=== PATIENT | female | born 1950 | race Caucasian/White ===

== ENCOUNTER 2019-04-03 00:12 | Observation (INO) | payer MEDICARE, MEDICAID, SELFPAY ==
[2019-04-02 23:46] VITALS: BP 180/60; PULSE 74; RESP 18; TEMP 36.5; O2SAT 96
--- NOTE | 2019-04-02 23:48 | CTR_ITS ---
PROCEDURE INFORMATION: Exam: CT Head Without Contrast Exam date and time: 04/02/2019 11:49 PM Age: 68 years old Clinical indication: Weakness, extremity; Left; Additional info: Symptoms of acute stroke TECHNIQUE: Imaging protocol: Computed tomography of the head without contrast. Total DLP: 863.93 mGy-cm Radiation optimization: All CT scans at this facility use at least one of these dose optimization techniques: automated exposure control; mA and/or kV adjustment per patient size (includes targeted exams where dose is matched to clinical indication); or iterative reconstruction. Other technique: STROKE PROTOCOL was implemented. COMPARISON: CT head wo con* [id number] 03/06/2015 3:52 PM FINDINGS: Brain: Normal. No hemorrhage. Unremarkable white matter. No mass effect. Midline shift: There is no shift of midline structures. Ventricles: Normal. No ventriculomegaly. Bones/joints: Unremarkable. No acute fracture. Sinuses: Visualized sinuses are unremarkable. No fluid levels. Mastoid air cells: Visualized mastoid air cells are well aerated. Soft tissues: Unremarkable. CT/CT head wo con* [id number] IMPRESSION: No acute intracranial abnormality. ASSESSMENT: ASPECTS ([place] Stroke Program Early CT Score) is 10. Radiation Dose CTDIVOL = (mGy): DLP = 863.93 (mGy-cm)
[2019-04-02 23:49] VITALS: BMI 28.8
[2019-04-03] VITALS (23 sets, daily range): BP systolic 100–180; BP diastolic 44–80; PULSE 64–85; RESP 13–20; TEMP 36.6–37; O2SAT 93–98
[2019-04-03 00:02] LABS: Basophils % 0.4 %; Eosinophils # 0.2 10^3/uL (0.0-0.8); Eosinophils % 1.7 %; Hematocrit 34.4 % (37.0-47.0); Hemoglobin 11.4 g/dL (11.5-15.3); Lymphocytes # 2.1 10^3/uL (0.8-4.8); Lymphocytes % 20.2 %; Mean Corpuscular HGB Conc 33.1 g/dL (30.0-36.0); Mean Corpuscular Hemoglobin 29.3 pg (28.0-34.0); Mean Corpuscular Volume 88.4 fL (81-99); Mean Platelet Volume 10.8 fL (7.4-10.4); Monocytes # 0.9 10^3/uL (0.2-0.9); Monocytes % 8.3 %; Neutrophils # 7.1 10^3/uL (1.8-7.7); Neutrophils % 69.1 %; Nucleated Red Blood Cells % 0 %; Platelet Count 236 10^3/cmm (130-400); Red Blood Count 3.89 10^6/uL (4.1-5.3); Red Cell Distribution Width 13.1 % (12.1-15.1); White Blood Count 10.3 10^3/uL (4.0-10.0)
--- NOTE | 2019-04-03 00:03 | ED_ITS ---
Entered by Kerrie Perez, acting as scribe for Shahana Reece MD HPI - Neuro Symptoms/Deficit General: Chief Complaint: Neuro Symptoms/Deficit Stated Complaint: slurred speech Time Seen by Provider: 04/03/19 00:05 Source: patient and EMS Mode of arrival: EMS Limitations: no limitations History of Present Illness: HPI Narrative: 68 yo f came to the er by ems for a poss stroke. Onset is unsure. Pt has been having some blurred vision and dizziness. Pt states that she has a history of stroke in the past. Onset (ago): day(s) (today / unsure) History of same: No Severity: mild Relieving factors: none Exacerbating factors: none Associated symptoms: Reports weakness; Deny chest pain, headache(s) or vomiting Review of Systems Const: Denies: fever or chills Eyes: Denies: photophobia ENMT: Denies: throat pain or mouth pain Card: Denies: chest pain Resp: Denies: shortness of breath GI: Denies: vomiting : Denies: difficulty urinating Musc: Denies: back pain or joint pain Skin/Breast: Denies: rash Neuro: Reports: numbness in extremities and slurred speech; Denies: headache Psych: Denies: depression Endo: Denies: excessive urination Stevie/Lymph: Denies: easy bruising All/Imm: Denies: hives PFSH ED PFSH: Statuses (acute, chronic, etc) shown below reflect problem list status as previously entered and may not be historically accurate Medical History Generalized anxiety disorder (Acute) Tension headache (Acute) Type 2 diabetes mellitus (Acute) Family History Other Heart disease Social History Smoking and tobacco status: never smoked Alcohol intake: never Marital status: / Current gender identity: Female Physical Exam Const: COMMON NORMALS: no apparent distress, oriented x3 and healthy appearing HENMT: COMMON NORMALS: normocephalic and external nose normal HEAD & SCALP: normocephalic NOSE: external nose normal and no nasal discharge (nasal dischage) Eye: COMMON NORMALS: PERRL PUPIL: Yes PERRL Neck/C-Spine: COMMON NORMALS: full ROM and no lymphadenopathy Chest: COMMONS NORMALS: inspection of chest normal Resp: COMMON NORMALS: normal respiratory effort and clear to auscultation bilaterally AUSCULTATION: clear to auscultation bilaterally Cardio: COMMON NORMALS: regular rate and regular rhythm RATE: regular rate RHYTHM: regular rhythm GI: COMMON NORMALS: soft to palpation PALPATION: Yes soft Extremity: COMMON NORMALS: normal to inspection, full ROM and normal capillary refill Neuro: COMMON NORMALS: oriented x3 OTHER: Slight slurred speech along with slight weakness to left side. Psych: COMMON NORMALS: mental status grossly normal and cooperative Skin: COMMON NORMALS: no rashes or lesions noted GENERAL SKIN EXAM: no rashes or lesions noted Course Vital Signs: Vital signs: Vital Signs Temperature 97.7 F 04/02/19 23:46 Pulse Rate 77 04/03/19 03:20 Respiratory Rate 13 04/03/19 03:20 Blood Pressure 114/53 04/03/19 03:51 Pulse Oximetry 94 04/03/19 03:51 MDM - Neuro Symptoms/Deficit MDM Narrative: Medical decision making narrative: Patient presents here with generalized weakness along with slurred speech and some weakness that is been going on for weeks. Patient has no signs of acute stroke and is out of the TPA window. CT head here is normal. Spoke to hospitalist and will admit for observation. Lab Data: Labs: Lab Results 04/02/19 04/02/19 04/02/19 Range/Units 23:05 23:05 23:05 WBC 10.3 H (4.0-10.0) 10^3/ uL RBC 3.89 L (4.1-5.3) 10^6/u L Hgb 11.4 L (11.5-15.3) g/dL Hct 34.4 L (37.0-47.0) % MCV 88.4 (81-99) fL MCH 29.3 (28.0-34.0) pg MCHC 33.1 (30.0-36.0) g/dL RDW 13.1 (12.1-15.1) % Plt Count 236 (130-400) 10^3/c mm MPV 10.8 H (7.4-10.4) fL Neut % (Auto) 69.1 % Lymph % (Auto) 20.2 % [place] % (Auto) 8.3 % Eos % (Auto) 1.7 % Baso % (Auto) 0.4 % Neut # (Auto) 7.1 (1.8-7.7) 10^3/u L Lymph # (Auto) 2.1 (0.8-4.8) 10^3/u L [place] # (Auto) 0.9 (0.2-0.9) 10^3/u L Eos # (Auto) 0.2 (0.0-0.8) 10^3/u L Baso # (Auto) 0.0 (0.0-0.1) 10^3/u L Nucleated RBC % (a uto) 0 % Nucleated RBCs # 0.0 /100WBC PT 13.80 H (10.5-13.3) SECO NDS INR 1.03 (0.8-1.2) APTT 29.0 (23.9-36.7) SECO NDS Sodium 139 (136-145) mmol/L Potassium 3.2 L (3.5-5.1) mmol/L Chloride 99 (98-107) mmol/L Carbon Dioxide 26 (22-29) mmol/L Anion Gap 17.2 (5-19) BUN 19 (8-23) mg/dL Creatinine 1.0 H (0.5-0.9) mg/dL GFR Calculation 54.8 L (90-130) mL/min Glucose 101 (74-106) mg/dL POC Glucose (70-110) mg/dL Calcium 10.1 (8.8-10.2) mg/Dl Total Bilirubin 0.4 (0.15-1.2) mg/dL AST 20 (0-32) U/L ALT 11 (0-33) U/L Alkaline Phosphata se 102 (35-105) IU/L Total Protein 6.8 (6.6-8.7) g/dL Albumin 4.3 (3.5-5.2) g/dL Globulin 2.5 (1.3-4.6) g/dL Urine Color (Yellow) Urine Appearance (CLEAR) Urine pH (5-7) Ur Specific Gravit y (1.005-1.030) Urine Protein (Negative) Urine Glucose (UA) (Normal) Urine Ketones (Negative) Urine Occult Blood (Negative) Urine Nitrate (Negative) Urine Bilirubin (NEGATIVE) Urine Urobilinogen (Negative) mg/dL Ur Leukocyte Allyson ase (Negative) 04/03/19 04/03/19 04/03/19 Range/Units 00:25 00:25 02:16 WBC (4.0-10.0) 10^3/ uL RBC (4.1-5.3) 10^6/u L Hgb (11.5-15.3) g/dL Hct (37.0-47.0) % MCV (81-99) fL MCH (28.0-34.0) pg MCHC (30.0-36.0) g/dL RDW (12.1-15.1) % Plt Count (130-400) 10^3/c mm MPV (7.4-10.4) fL Neut % (Auto) % Lymph % (Auto) % [place] % (Auto) % Eos % (Auto) % Baso % (Auto) % Neut # (Auto) (1.8-7.7) 10^3/u L Lymph # (Auto) (0.8-4.8) 10^3/u L [place] # (Auto) (0.2-0.9) 10^3/u L Eos # (Auto) (0.0-0.8) 10^3/u L Baso # (Auto) (0.0-0.1) 10^3/u L Nucleated RBC % (a uto) % Nucleated RBCs # /100WBC PT (10.5-13.3) SECO NDS INR (0.8-1.2) APTT (23.9-36.7) SECO NDS Sodium (136-145) mmol/L Potassium (3.5-5.1) mmol/L Chloride (98-107) mmol/L Carbon Dioxide (22-29) mmol/L Anion Gap (5-19) BUN (8-23) mg/dL Creatinine (0.5-0.9) mg/dL GFR Calculation (90-130) mL/min Glucose (74-106) mg/dL POC Glucose 78 118 (70-110) mg/dL Calcium (8.8-10.2) mg/Dl Total Bilirubin (0.15-1.2) mg/dL AST (0-32) U/L ALT (0-33) U/L Alkaline Phosphata se (35-105) IU/L Total Protein (6.6-8.7) g/dL Albumin (3.5-5.2) g/dL Globulin (1.3-4.6) g/dL Urine Color Yellow (Yellow) Urine Appearance Clear (CLEAR) Urine pH 7 (5-7) Ur Specific Gravit y 1.010 (1.005-1.030) Urine Protein Neg (Negative) Urine Glucose (UA) Norm (Normal) Urine Ketones Negative (Negative) Urine Occult Blood Neg (Negative) Urine Nitrate Negative (Negative) Urine Bilirubin Neg (NEGATIVE) Urine Urobilinogen Norm (Negative) mg/dL Ur Leukocyte Allyson ase Negative (Negative) Imaging Data^: CT Head: Radiologist's impression: PROCEDURE INFORMATION: Exam: CT Head Without Contrast Exam date and time: 04/02/2019 11:49 PM Age: 68 years old Clinical indication: Weakness, extremity; Left; Additional info: Symptoms of acute stroke TECHNIQUE: Imaging protocol: Computed tomography of the head without contrast. Total DLP: 863.93 mGy-cm Radiation optimization: All CT scans at this facility use at least one of these dose optimization techniques: automated exposure control; mA and/or kV adjustment per patient size (includes targeted exams where dose is matched to clinical indication); or iterative reconstruction. Other technique: STROKE PROTOCOL was implemented. COMPARISON: CT head wo con* [id number] 03/06/2015 3:52 PM FINDINGS: Brain: Normal. No hemorrhage. Unremarkable white matter. No mass effect. Midline shift: There is no shift of midline structures. Ventricles: Normal. No ventriculomegaly. Bones/joints: Unremarkable. No acute fracture. Sinuses: Visualized sinuses are unremarkable. No fluid levels. Mastoid air cells: Visualized mastoid air cells are well aerated. Soft tissues: Unremarkable. CT/CT head wo con* [id number] IMPRESSION: No acute intracranial abnormality. CXR: Attestation: I personally reviewed and interpreted this imaging study as follows: My impression: no acute abnormality EKG Data^: EKG 1: Attestation: I personally reviewed and interpreted this EKG as follows: EKG interpretation date: 04/03/19 EKG interpretation time: 00:18 Interpretation: nsr hr [address] or t wave abnormalities qrs 100 qtc 446 Discharge Plan Discharge Patient Disposition: Admitted As Inpatient Clinical Impression: Weakness Condition: Stable Referrals: Harika Gross MD [Primary Care Provider] - Coding Level of Care Code ED [facility] Manager for Chg Fwd Exam Problem Focused The documentation recorded by the Chris partida Stephanie Lyn, accurately reflects the service I personally performed and the decisions made by me, Shahana Reece MD Apr 03, 2019 00:12
[2019-04-03 00:10] LABS: INR 1.03 (0.8-1.2)
[2019-04-03 00:28] LABS: Glucose Point of Care 78 mg/dL (70-110)
[2019-04-03 00:33] LABS: Alanine Aminotransferase 11 U/L (0-33); Albumin Level 4.3 g/dL (3.5-5.2); Alkaline Phosphatase 102 IU/L (35-105); Anion Gap 17.2 (5-19); Aspartate Amino Transferase 20 U/L (0-32); Blood Urea Nitrogen 19 mg/dL (8-23); Calcium 10.1 mg/Dl (8.8-10.2); Carbon Dioxide 26 mmol/L (22-29); Chloride 99 mmol/L (98-107); Globulin 2.5 g/dL (1.3-4.6); Glomerular Filtration Rate 54.8 mL/min (90-130); Glucose 101 mg/dL (74-106); Potassium 3.2 mmol/L (3.5-5.1); Sodium 139 mmol/L (136-145); Total Bilirubin 0.4 mg/dL (0.15-1.2); Total Protein 6.8 g/dL (6.6-8.7)
--- NOTE | 2019-04-03 00:37 | PC.NURSE ---
BG AT BESIDE 78
[2019-04-03 00:58] LABS: Add Urine Microscopic? NO
[2019-04-03 01:07] LABS: Bilirubin Urine Neg (NEGATIVE); Blood Urine Neg (Negative); Glucose Urine UA Norm (Normal); Ketones Urine Negative (Negative); Leukocyte Esterase Urine Negative (Negative); Nitrate Urine Negative (Negative); Protein Urine Neg (Negative); Urine Appearance Clear (CLEAR); Urine Color Yellow (Yellow); Urobilinogen Urine Norm (Negative); pH Urine 7 (5-7)
--- NOTE | 2019-04-03 01:13 | XR_ITS ---
WS: [id number] CHEST XRAY TECHNIQUE: Portable chest. CLINICAL INFORMATION: weakness COMPARISON: October 24, 2013 FINDINGS: Heart: Normal cardiac silhouette. Lungs: Lungs are clear. No consolidation or pleural effusion. Bones: Chronic appearing fracture deformity left proximal humerus. XR/XR chest 1V portable [id number] IMPRESSION: Normal chest
[2019-04-03] MEDS: dextrose 50% syringe 50 mL 25 ML IVP (01:41)
--- NOTE | 2019-04-03 02:18 | PC.NURSE ---
BG AT BEDSIDE 118
[2019-04-03 02:20] LABS: Glucose Point of Care 118 mg/dL (70-110)
--- NOTE | 2019-04-03 03:21 | PC.NURSE ---
PATIENT SLEEPING WITH LIGHTS ON IN ROOM.
--- NOTE | 2019-04-03 04:40 | PM.HP ---
Providers/Chief Complaint Admitting Physician: Bridget Arnett Primary Care Provider: Harika Gross Chief Complaint: CP History of Present Illness Olga Suresh is a 68 year old female Medications/Allergies Allergies Allergy/AdvReac Type Severity Reaction Status Date / Time simvastatin Allergy leg cramps Verified 04/02/19 13:25 PFSH Acute PFSH: Statuses (acute, chronic, etc) shown below reflect problem list status as previously entered and may not be historically accurate Medical History (Updated 04/03/19 @ 04:47 by Bridget Arnett MD) CAD (coronary artery disease) (Acute) LAD stent 2004 & 2008, last mibi stress test 02/12 was negative for ischemia but showed scarring. Dyslipidemia (Acute) Generalized anxiety disorder (Acute) History of TIA (transient ischemic attack) and stroke (Acute) Hypertension (Acute) Type 2 diabetes mellitus (Acute) Surgical History (Updated 04/03/19 @ 04:39 by Bridget Arnett MD) History of appendectomy (Acute) History of tubal ligation (Acute) Family History Other Heart disease Social History Smoking and tobacco status: never smoked Alcohol intake: never Marital status: / Current gender identity: Female Vitals/I&O/Wt Last Vital Signs Temp 97.7 F 04/02/19 23:46 Pulse 70 04/03/19 04:12 Resp 14 04/03/19 04:12 BP 130/47 04/03/19 04:12 Pulse Ox 96 04/03/19 04:12 Weight last 48 hrs Weight 78.426 kg Attestations Medical Necessity Statement*: Currently anticipate stay less than 2 midnights Coding Level of Care Code Acute Inspector Set Up And Lay Out for [facility]
--- NOTE | 2019-04-03 05:19 | P.HP_ITS ---
Providers/Chief Complaint Admitting Physician: Bridget Arnett Primary Care Provider: Harika Gross Chief Complaint: CP History of Present Illness Olga Suresh is a 68 year old female who presented to the emergency room because her family was concerned she may have had another stroke. History is obtained from the patient. She says that she has not been feeling well for a while and it is just been getting progressively worse. From the best I can tell she was with her family today and was sitting in a chair and was not able to get up. It also sounds like maybe her speech had worsened though she denies that her speech is different from baseline at the moment. I do have a difficult time getting history from her although if I asked her very specific questions she will answer them. She denies weakness on one side more so than the other though has had generalized weakness and fatigue. She does has not felt like she could do much of anything like she used to. She does live alone though family visits her frequently. She tells me that she cooks her own meals and will make up her bed, do some light housekeeping. She has not had any falls nor has she dropped anything. She does have intermittent headaches and occasional discomfort in her chest along with occasional shortness of breath but none of that appears to be acutely worse than baseline. CT of the head done in the emergency room was unremarkable for acute findings. Laboratory studies were also unremarkable. Patient continued to be weak and did not feel that it was safe for her to go home. She has had previous mini strokes and strokes. She is being admitted for further monitoring and evaluation. Review of Systems Const: Reports: body aches, fatigue and malaise; Denies: fever, chills, change in appetite or change in weight Eyes: Denies: change in vision ENMT: Denies: throat pain, oral sores/lesions or nasal discharge Card: Reports: chest pain; Denies: palpitations, irregular heart rhythm, edema or syncope Resp: Reports: shortness of breath and non-productive cough (mild); Denies: productive cough or pain on inspiration GI: Denies: abdominal pain, nausea, vomiting, difficulty swallowing, diarrhea or constipation : Denies: difficulty urinating or urinary frequency Musc: Reports: muscle weakness Skin/Breast: Denies: rash or itching Neuro: Reports: headache, weakness in extremities and slurred speech; Denies: numbness in extremities, changes in sensation, lack of coordination, frequent falls or confusion Psych: Reports: anxiety Stevie/Lymph: Denies: easy bruising or easy bleeding Medications/Allergies Allergies Allergy/AdvReac Type Severity Reaction Status Date / Time simvastatin Allergy leg cramps Verified 04/02/19 13:25 Additional Medication Information Additional Medication Information: Review of external medication list shows that patient is probably on Xanax, Plavix, iron sulfate, fluticasone or Flovent inhaler, Lasix, gabapentin, hydralazine, hydrocodone, sliding scale insulin, Lantus, nitroglycerin, potassium, and triamcinolone. She was given a prescription for trazodone on April 02 but reports that she did not take any of it. PFSH Acute PFSH: Statuses (acute, chronic, etc) shown below reflect problem list status as previously entered and may not be historically accurate Medical History (Updated 04/03/19 @ 06:43 by Bridget Arnett MD) CAD (coronary artery disease) (Acute) LAD stent 2004 & 2008, last mibi stress test 02/12 was negative for ischemia but showed scarring. Dyslipidemia (Acute) Generalized anxiety disorder (Acute) History of TIA (transient ischemic attack) and stroke (Acute) Hypertension (Acute) Type 2 diabetes mellitus (Acute) Surgical History (Updated 04/03/19 @ 04:39 by Bridget Arnett MD) History of appendectomy (Acute) History of tubal ligation (Acute) Family History Other Heart disease Social History Smoking and tobacco status: never smoked Alcohol intake: never Marital status: / Current gender identity: Female Vitals/I&O/Wt Last Vital Signs Temp 97.7 F 04/02/19 23:46 Pulse 70 04/03/19 04:12 Resp 14 04/03/19 04:12 BP 123/64 04/03/19 04:49 Pulse Ox 96 04/03/19 04:49 Weight last 48 hrs Weight 78.426 kg Physical Exam Const: COMMON NORMALS: no apparent distress, average body habitus and oriented x3 HENMT: COMMON NORMALS: normocephalic, head/scalp atraumatic and moist oral mucous membranes MOUTH: tongue abnormal other (Approximately 3 mm polyp on the tip of the) Eye: COMMON NORMALS: PERRL and EOMs intact bilaterally Neck/C-Spine: COMMON NORMALS: full ROM and supple Resp: COMMON NORMALS: normal respiratory effort, no retractions and clear to auscultation bilaterally Cardio: COMMON NORMALS: no JVD, regular rate, regular rhythm, no gallops and no murmurs GI: COMMON NORMALS: normal to inspection, nondistended, normoactive bowel sounds, soft to palpation and non-tender Back/Pelvis: COMMON NORMALS: no CVA tenderness Extremity: COMMON NORMALS: normal to inspection, no calf tenderness and no pedal edema Neuro: COMMON NORMALS: moves all extremities SENSORIUM/ORIENTATION: Yes oriented to person, Yes oriented to place and Yes oriented to time MENINGEAL SIGNS: Yes no meningeal signs SPEECH: abnormal speech Details: slurred (I think it is really due to her teeth and the polyp on the tip of her tongue) SENSORY EXAM: Yes extremities bilateral light-touch: normal MOTOR EXAM: strength 5/5 throughout, no pronator drift and no tremor noted Psych: COMMON NORMALS: mental status grossly normal and thought process normal Skin: COMMON NORMALS: no rashes or lesions noted, no wounds and no jaundice A&P Assessment and plan (1) Weakness: Seem to be patient's primary complaint. Family was worried about possibility of recurrent stroke or TIA. Having not cared for her in the past it is difficult for me to know. She says that she is at her baseline in terms of speech but is weaker than usual. That being said strength is equal in terms of handgrip and distal strength at the feet. While I will initially had some difficulty understanding her I did not have any difficulty after listening to her for a few minutes. Status: Acute Code(s): R53.1 - Weakness (2) Hypertension: Appears adequately controlled presently Status: Acute Qualifiers: Hypertension type: essential hypertension Qualified Code(s): I10 - Essential (primary) hypertension Code(s): I10 - Essential (primary) hypertension (3) History of TIA (transient ischemic attack) and stroke: I cannot get a clear history on exactly when and what this entailed but she is on Plavix because of this. Sounds like at one point she did have some left-sided weakness and speech abnormalities. Status: Acute Code(s): Z86.73 - Personal history of transient ischemic attack (TIA), and cerebral infarction without residual deficits (4) CAD (coronary artery disease): Does have a history of stents. Stress testing in January was negative for ischemia. Anginal equivalent has to be considered but she does not really describe classic anginal symptoms at the moment. Status: Acute Qualifiers: Coronary Disease-Associated Artery/Lesion type: [place] artery [place] vs. transplanted heart: [place] heart Associated angina: angina presence unspecified Qualified Code(s): I25.10 - Atherosclerotic heart disease of [place] coronary artery without angina pectoris Code(s): I25.10 - Atherosclerotic heart disease of [place] coronary artery without angina pectoris (5) Type 2 diabetes mellitus: Chronically on insulin, does not report significant issues with blood sugars. Last A1c in September of last year was around 7. Status: Acute Qualifiers: Diabetes mellitus skilled nursing insulin use: with skilled nursing use Diabetes mellitus complication status: with neurologic complications Diabetes mellitus complication detail: with polyneuropathy Qualified Code(s): E11.42 - Type 2 diabetes mellitus with diabetic polyneuropathy; Z79.4 - group home (current) use of insulin Code(s): E11.9 - Type 2 diabetes mellitus without complications (6) Generalized anxiety disorder: On chronic Xanax therapy Status: Acute Code(s): F41.1 - Generalized anxiety disorder Additional A&P Information Additional A&P Information: Observation admission Serial neuro exams PT/OT and speech evaluation Serial cardiac enzymes Try to decrease amounts of Xanax and hydrocodone Do not start trazodone that was just prescribed in the outpatient setting Once were able to clarify home medications will resume Replace potassium Supportive care otherwise Full code Plans discussed with patient and she was given an opportunity to ask questions Attestations Medical Necessity Statement*: Currently anticipated stay less than 2 midnights in a patient presenting with weakness and other symptoms as noted above. Will monitor her for recurrent symptoms or other change, replacing potassium and try to decrease some of her medications which might contribute to this. Coding Level of Care Code Acute Media Monitor for [facility] Diagnoses Weakness R53.1 Hypertension I10 Hypertension type: essential hypertension History of TIA (transient ischemic attack) and stroke Z86.73 CAD (coronary artery disease) I25.10 Coronary Disease-Associated Artery/Lesion type: [place] artery [place] vs. transplanted heart: [place] heart Associated angina: angina presence unspecified Type 2 diabetes mellitus E11.42; Z79.4 Diabetes mellitus skilled nursing insulin use: with skilled nursing use Diabetes mellitus complication status: with neurologic complications Diabetes mellitus complication detail: with polyneuropathy Generalized anxiety disorder F41.1
--- NOTE | 2019-04-03 07:10 | PC.NURSE ---
report received from KING Pedraza
[2019-04-03 07:29] LABS: Troponin(5th) Baseline 14 ng/mL (0-10)
--- NOTE | 2019-04-03 09:07 | PC.NURSE ---
pt is waiting in ER until med surge bed becomes available. Dysphagia screen ordered. Nurse is keeping pt NPO until screening complete. Pt educated and verbalized understanding
[2019-04-03 09:42] LABS: Troponin 5 2HR 13.69 ng/mL (0-10)
[2019-04-03 09:46] LABS: Troponin 5 2HR Delta -0.31 ABS# (0-10)
--- NOTE | 2019-04-03 10:17 | PC.NURSE ---
OT at bedside to perform dysphagia screening
[2019-04-03 11:58] LABS: Glucose Point of Care 90 mg/dL (70-110)
[2019-04-03] MEDS: clopidogrel 75 mg Tablet PO (13:23)
[2019-04-03] MEDS: hyDRALAzine 25 mg Tablet PO ×2 (13:24→20:55)
[2019-04-03 13:51] LABS: Troponin 5 6HR 15.56 ng/L (0-10)
[2019-04-03 14:35] LABS: Troponin 5 6HR Delta 1.56 ng/L (0-12)
[2019-04-03 16:51] LABS: Glucose Point of Care 101 mg/dL (70-110)
--- NOTE | 2019-04-03 17:10 | PM.PN ---
Subjective Subjective: Interval history: No new complaints today. Patient states her weakness is significantly improved this morning. No focal neuro deficits at this time. She does state that she has been having multiple episodes of headaches and has been diagnosed with migraines in the past however at this present time she denies any headache. Medications: Reviewed: Yes Vitals/I&O/Wt Last Vital Signs Temp 98.6 F 04/03/19 15:00 Pulse 74 04/03/19 15:00 Resp 18 04/03/19 15:00 BP 147/76 04/03/19 15:00 Pulse Ox 97 04/03/19 15:00 04/03/19 04/03/19 04/03/19 06:59 14:59 22:59 Intake Total 60 / 60 Balance 60 / 60 Weight last 48 hrs Weight 78.426 kg Physical Exam Narrative: EXAM NARRATIVE: General awake alert and oriented x3 CVS S1-S2 is normal RS is clear to auscultation Abdomen is soft nondistended nontender Extremities no cyanosis clubbing edema Neuro exam no gross focal deficits. Data Other Data: Attestation for Other Data: I personally reviewed and interpreted the following: Other data: UA is negative. Chest x-ray is normal without any gross infiltrates A&P Assessment and plan (1) Weakness: Patient states her weakness is significantly improved this morning. At this time she denies any focal motor deficits. Her only complaint at this time is intermittent headache which is currently better. She does carry a history of migraines in the past. Status: Acute Code(s): R53.1 - Weakness (2) Hypertension: Appears adequately controlled presently Status: Acute Qualifiers: Hypertension type: essential hypertension Qualified Code(s): I10 - Essential (primary) hypertension Code(s): I10 - Essential (primary) hypertension (3) History of TIA (transient ischemic attack) and stroke: Continue Plavix 75 mg daily Status: Acute Code(s): Z86.73 - Personal history of transient ischemic attack (TIA), and cerebral infarction without residual deficits (4) CAD (coronary artery disease): Does have a history of stents. Stress testing in January was negative for ischemia. Anginal equivalent has to be considered but she does not really describe classic anginal symptoms at the moment. Status: Acute Qualifiers: Coronary Disease-Associated Artery/Lesion type: [place] artery [place] vs. transplanted heart: [place] heart Associated angina: angina presence unspecified Qualified Code(s): I25.10 - Atherosclerotic heart disease of [place] coronary artery without angina pectoris Code(s): I25.10 - Atherosclerotic heart disease of [place] coronary artery without angina pectoris (5) Type 2 diabetes mellitus: Chronically on insulin, does not report significant issues with blood sugars. Last A1c in September of last year was around 7. Status: Acute Qualifiers: Diabetes mellitus mcfp insulin use: with termite control representative use Diabetes mellitus complication status: with neurologic complications Diabetes mellitus complication detail: with polyneuropathy Qualified Code(s): E11.42 - Type 2 diabetes mellitus with diabetic polyneuropathy; Z79.4 - halfway (current) use of insulin Code(s): E11.9 - Type 2 diabetes mellitus without complications (6) Generalized anxiety disorder: On chronic Xanax therapy Status: Acute Code(s): F41.1 - Generalized anxiety disorder Additional A&P Information Additional A&P Information: Continue observation on telemetry. Serial neuro exams PT/OT and speech evaluation Replace potassium. Will recheck in the morning Supportive care otherwise Full code Attestations Medical Necessity Statement*: Admitted for serial neuro exams and continued observation. Coding Level of Care Code Acute Management Trainee Marketing for Chg Fwd Diagnoses Weakness R53.1 Hypertension I10 Hypertension type: essential hypertension History of TIA (transient ischemic attack) and stroke Z86.73 CAD (coronary artery disease) I25.10 Coronary Disease-Associated Artery/Lesion type: [place] artery [place] vs. transplanted heart: [place] heart Associated angina: angina presence unspecified Type 2 diabetes mellitus E11.42; Z79.4 Diabetes mellitus termite control representative insulin use: with mcfp use Diabetes mellitus complication status: with neurologic complications Diabetes mellitus complication detail: with polyneuropathy Generalized anxiety disorder F41.1
[2019-04-03 20:41] LABS: Glucose Point of Care 113 mg/dL (70-110)
[2019-04-03] MEDS: HYDROcodone-acetaminophen 5-325 mg Tablet 1 TAB PO (21:01)
[2019-04-03] MEDS: ALPRAZolam 0.25 mg Tablet PO (21:01)
[2019-04-04] VITALS (7 sets, daily range): BP systolic 129–158; BP diastolic 62–83; PULSE 69–78; RESP 16–20; TEMP 36.5–37.2; O2SAT 96–98
[2019-04-04 05:38] LABS: Basophils % 0.4 %; Eosinophils # 0.2 10^3/uL (0.0-0.8); Eosinophils % 2.1 %; Hematocrit 36.7 % (37.0-47.0); Hemoglobin 11.6 g/dL (11.5-15.3); Lymphocytes # 2.7 10^3/uL (0.8-4.8); Lymphocytes % 24.9 %; Mean Corpuscular HGB Conc 31.6 g/dL (30.0-36.0); Mean Corpuscular Hemoglobin 30.1 pg (28.0-34.0); Mean Corpuscular Volume 95.3 fL (81-99); Mean Platelet Volume 10.7 fL (7.4-10.4); Monocytes % 8.8 %; Neutrophils # 6.8 10^3/uL (1.8-7.7); Neutrophils % 63.4 %; Nucleated Red Blood Cells % 0 %; Platelet Count 232 10^3/cmm (130-400); Red Blood Count 3.85 10^6/uL (4.1-5.3); Red Cell Distribution Width 13.3 % (12.1-15.1); White Blood Count 10.8 10^3/uL (4.0-10.0)
[2019-04-04 06:37] LABS: Alanine Aminotransferase 11 U/L (0-33); Albumin Level 4.9 g/dL (3.5-5.2); Alkaline Phosphatase 88 IU/L (35-105); Anion Gap 15.8 (5-19); Aspartate Amino Transferase 20 U/L (0-32); Blood Urea Nitrogen 19 mg/dL (8-23); Calcium 10.1 mg/Dl (8.8-10.2); Carbon Dioxide 27 mmol/L (22-29); Chloride 103 mmol/L (98-107); Globulin 1.5 g/dL (1.3-4.6); Glomerular Filtration Rate 61.9 mL/min (90-130); Glucose 59 mg/dL (74-106); Potassium 3.8 mmol/L (3.5-5.1); Sodium 142 mmol/L (136-145); Total Bilirubin 0.6 mg/dL (0.15-1.2); Total Protein 6.4 g/dL (6.6-8.7)
[2019-04-04 06:52] LABS: Glucose Point of Care 64 mg/dL (70-110)
[2019-04-04] MEDS: HYDROcodone-acetaminophen 5-325 mg Tablet 1 TAB PO (08:45)
[2019-04-04] MEDS: hyDRALAzine 25 mg Tablet PO (08:45)
[2019-04-04] MEDS: atorvastatin 40 mg Tablet 20 MG PO (08:45)
[2019-04-04] MEDS: clopidogrel 75 mg Tablet PO (08:45)
[2019-04-04 11:58] LABS: Glucose Point of Care 122 mg/dL (70-110)
--- NOTE | 2019-04-04 15:34 | PC.CHAP ---
Pastoral Care Encounter/Spiritual Assessment Type of Contact [] Declined supervisor food checkers and cashiers visit [] Patient/Family/Request visit [] Outpatient visit [] Follow-up visit [] Physician referral [] Code/Alert [x] Routine visit [] Staff referral [] Actively dying [] Patient sleeping [] Family support [] [] Out of room [] Palliative care [] [] Receiving care in room [] Pre-surgical visit [] Trauma [] Long length of stay [] ICU visit [] Other: Relational/Emotional Strength [x] Patient feels connected with others/family/visitors/staff [] Distress [] Loneliness/isolation [] Abandonment Spirituality of Patient [x] Person of Norma [x] Attends Sikhism of their Norma [x] Believes in Prayer [x] Reads Bible or Christian materials [] There are Spiritual issues to be addressed Floor Sweeper Interventions [x] Prayer [x] Active listening [x] Non-anxious presence [x] Spiritual/emotional support [] Crisis/trauma care [x] Spiritual counseling [] Bereavement support [] Provided bereavement packet [] Provided Bible/devotional materials [] Provided toy/stuffed animal, coloring book to patient or family member [x] Completed spiritual assessment [] Provided Communion [] Anointing/Anthony [] Salvation [] Other: Impact on Illness or Injury [] Angry [] Fearful [] Anxious [] Often cries [] Exhaustion [] Unable to work [] Unable to attend buddhism [] Unable to walk/stand [] Unable to read [] Unable to drive [] Unable to eat/drink [] Unable to sleep [] Unable to be with family [] Other: Summary Patient knows the Lord and is in LOve with [place]. Time spent with patient
[2019-04-04 17:02] LABS: Glucose Point of Care 132 mg/dL (70-110)
--- NOTE | 2019-04-26 23:06 | P.DS_ITS ---
Discharge Providers Date of Admission: 04/03/19 04:21 Date of Discharge: Date of Discharge: April 04, 2019 Attending Provider at Admission: Bridget Arnett MD Attending Provider at Discharge: Libra Hunt MD Primary Care Provider: Harika Gross MD Diagnoses at Discharge Discharge Diagnosis (1) Weakness: Status: Acute (2) Hypertension: Status: Acute Qualifiers: Hypertension type: essential hypertension Qualified Code(s): I10 - Essential (primary) hypertension (3) History of TIA (transient ischemic attack) and stroke: Status: Acute (4) CAD (coronary artery disease): Status: Acute Problem details: LAD stent 2004 & 2008, last mibi stress test 02/12 was negative for ischemia but showed scarring. Qualifiers: Coronary Disease-Associated Artery/Lesion type: [place] artery [place] vs. transplanted heart: [place] heart Associated angina: angina presence unspecified Qualified Code(s): I25.10 - Atherosclerotic heart disease of [place] coronary artery without angina pectoris (5) Type 2 diabetes mellitus: Status: Acute Qualifiers: Diabetes mellitus custodial insulin use: with custodial use Diabetes mellitus complication status: with neurologic complications Diabetes mellitus complication detail: with polyneuropathy Qualified Code(s): E11.42 - Type 2 diabetes mellitus with diabetic polyneuropathy; Z79.4 - bed bug exterminator (current) use of insulin (6) Generalized anxiety disorder: Status: Acute Reason for Visit Reason for Visit: Reason For Visit: CP Hospital Course Discharge Summary: Taken from H&P: Olga Suresh is a 68 year old female who presented to the emergency room because her family was concerned she may have had another stroke. History is obtained from the patient. She says that she has not been feeling well for a while and it is just been getting progressively worse. She denied weakness on one side more so than the other though has had generalized weakness and fatigue. She does has not felt like she could do much of anything like she used to. She does live alone though family visits her frequently. She tells me that she cooks her own meals and will make up her bed, do some light housekeeping. She has not had any falls nor has she dropped anything. She does have intermittent headaches and occasional discomfort in her chest along with occasional shortness of breath but none of that appears to be acutely worse than baseline. CT of the head done in the emergency room was unremarkable for acute findings. Laboratory studies were also unremarkable. Patient continued to be weak and did not feel that it was safe for her to go home. She has had previous mini strokes and strokes. She was admitted for further monitoring. CT head was negative. By the next morning she reported her weakness had significantly imrpoved. She also reported a h/o migraines though remained without headaches. There were no acute events on telemetry. She was discharged in stable condition. Physical Exam Narrative: EXAM NARRATIVE: GEN: Awake, alert and oriented, no acute distress CVS: S1S2 N RS: CTA B/L Abd: Soft, nt/nd , bs+ PARISH VISITOR: no focal neuro deficits Discharge Data Data Completed and Pending: Completed Studies During Hospitalization Category Date Time Status CT head wo con* [id number] Stat Cat Scan 04/02/19 23:48 Completed XR chest 1V deann ble [id number] Stat Exams 04/03/19 01:13 Completed Vitals: Last Vital Signs Temp 98.9 F 04/04/19 15:44 Pulse 78 04/04/19 15:44 Resp 18 04/04/19 15:44 BP 158/62 04/04/19 15:44 Pulse Ox 96 04/04/19 15:44 Discharge Plan Discharge Patient Disposition: Home, Self-Care Condition: Stable Prescriptions: Continued alprazolam 0.5 mg tablet 0.5 mg PO TID PRN (Reason: Anxiety) RF: 0 Flovent HFA 220 mcg/actuation HFA aerosol inhaler 2 puff INHALATION QID PRN (Reason: Shortness Of Breath) RF: 0 nitroglycerin [Nitrostat] 0.4 mg tablet, sublingual 0.4 mg SUBLINGUAL Q5M PRN (Reason: Chest Pain) RF: 0 gabapentin 300 mg capsule 300 mg PO BID RF: 0 clopidogrel 75 mg tablet 75 mg PO DAILY RF: 0 Lantus U-100 Insulin 100 unit/mL solution 45 unit SUBCUT DAILY RF: 0 Novolog Flexpen U-100 Insulin 100 unit/mL (3 mL) insulin pen See Rx Instructions SUBCUT TID RF: 0 furosemide [Lasix] 20 mg tablet See Rx Instructions .ROUTE .COMPLEX RF: 0 potassium chloride 20 mEq tablet extended release 40 meq PO DAILY RF: 0 (DME) pen needle, diabetic [1st Tier Unifine Pentips Plus] 29 gauge x 1/2 needle See Rx Instructions .ROUTE .MEDSUPPLY Qty: 30 RF: 0 ferrous sulfate 325 mg (65 mg iron) tablet 325 mg PO BID RF: 0 hydralazine 25 mg tablet 25 mg PO TID RF: 0 triamcinolone acetonide 0.1 % cream 1 applic TOPICAL BID PRN (Reason: UNKNOWN) RF: 0 Crestor 5 mg Tablet 5 mg PO DAILY RF: 0 trazodone 50 mg tablet 50 mg PO DAILY PRN (Reason: insomnia) RF: 0 No Action hydrocodone-acetaminophen 7.5-325 mg tablet 1 tab PO BID PRN (Reason: pain) 30 Days Qty: 60 RF: 0 Discharge Orders: Discharge Order (Routine); Ordered 04/04/19 Ordered By: Libra Hunt Other Ambulatory Orders: MR head wo con* [id number] (Routine) Timeframe: 1 Week Facility: [facility] - Location: [facility] [place] [facility] Ordered By: Libra Hunt MR head wo con* [id number] (Routine) Timeframe: 1 Week Facility: [facility] - Location: [facility] [place] [facility] Ordered By: Libra Hunt Referrals: Chantel Hart MD [Physician] - (Follow up with Dr. Hart on June 17 at 11:30 AM This is the first available appointment. They will call you if something changes. ) Harika Gross MD [Primary Care Provider] - Patient Instructions: Coronary Artery Disease in Women (DC), Weakness (GEN), TIA Discharge Date/Time: 04/04/19 17:47 Discharge Attestations Time Spent in Discharge Care*: less than 30 min Quality Metrics Clinical Quality Measures During this hospital stay, did patient experience: None Coding Level of Care Code Acute Ornamenter for Chg Fwd Diagnoses Weakness R53.1 Hypertension I10 Hypertension type: essential hypertension History of TIA (transient ischemic attack) and stroke Z86.73 CAD (coronary artery disease) I25.10 Coronary Disease-Associated Artery/Lesion type: [place] artery [place] vs. transplanted heart: [place] heart Associated angina: angina presence unspecified Type 2 diabetes mellitus E11.42; Z79.4 Diabetes mellitus custodial insulin use: with longwall shearer operator use Diabetes mellitus complication status: with neurologic complications Diabetes mellitus complication detail: with polyneuropathy Generalized anxiety disorder F41.1
== END 2019-04-04 17:47 | disposition home or self-care (01) ==
LOC: ER 06:10 → MEDSURG 11:24
PROVIDERS: Admitting Provider Hospitalist; Emergency Provider Emergency Medicine; Family Provider Family Medicine; PCP Family Medicine; Visit Provider Student in an Organized Health Care Education/Training Program
DX: R53.1 Weakness (principal); I10 Essential (primary) hypertension; Z86.73 Personal history of transient ischemic attack (TIA), and cerebral infarction without residual deficits; I25.10 Atherosclerotic heart disease of native coronary artery without angina pectoris; E11.42 Type 2 diabetes mellitus with diabetic polyneuropathy; Z79.4 Long term (current) use of insulin; F41.1 Generalized anxiety disorder; Z82.49 Family history of ischemic heart disease and other diseases of the circulatory system
CPT/HCPCS: 12345; 36415; 36416; 70450; 71045; 80053; 81003; 82962; 84484; 85025; 85610; 85730; 92523; 92526; 92610; 96105; 96374; 96375; 97110; 97161; 97165; 97530; 99283; 99285; A9270; G0378

== ENCOUNTER → 2019-05-28 11:31 | Outpatient (BNVA) | payer MEDICARE, MEDICAID, SELFPAY | PROVIDERS: Family Provider Family Medicine; PCP Family Medicine; Visit Provider Family Medicine | DX: G89.4 Chronic pain syndrome (principal); E11.42 Type 2 diabetes mellitus with diabetic polyneuropathy; Z79.4 Long term (current) use of insulin; F41.1 Generalized anxiety disorder; Z86.73 Personal history of transient ischemic attack (TIA), and cerebral infarction without residual deficits; F06.8 Other specified mental disorders due to known physiological condition | CPT/HCPCS: 36416; 82962 ==

== ENCOUNTER → 2019-11-18 12:15 | Outpatient (BNVA) | payer MEDICARE, MEDICAID, SELFPAY | PROVIDERS: Family Provider Family Medicine; PCP Family Medicine; Visit Provider Nurse Practitioner Family | DX: E78.5 Hyperlipidemia, unspecified (principal); I10 Essential (primary) hypertension; E11.42 Type 2 diabetes mellitus with diabetic polyneuropathy; Z79.4 Long term (current) use of insulin | CPT/HCPCS: 80053; 80061; 81003; 83036; 84443; 85025 ==

== ENCOUNTER 2020-06-16 06:00 | Outpatient (RCR) | payer MEDICARE, MEDICAID, SELFPAY | END 2020-06-24 23:59 | disposition home or self-care (01) | LOC: WPT 06:00 | PROVIDERS: Family Provider Family Medicine; PCP Family Medicine; Referring Provider Family Medicine; Visit Provider Family Medicine | DX: Z86.73 Personal history of transient ischemic attack (TIA), and cerebral infarction without residual deficits (principal) | CPT/HCPCS: 97163 ==

== ENCOUNTER 2020-06-18 08:57 | Outpatient (CLI) | payer MEDICARE, MEDICAID, SELFPAY ==
--- NOTE | 2020-06-18 09:10 | CT_ITS ---
WS: [id number] CT HEAD TECHNIQUE: Noncontrast CT of the head obtained from the skullbase to the vertex. CLINICAL INFORMATION: Z86.73 - Personal history of transient ischemic attack (TIA), and cerebral infa rction without residual deficits COMPARISON: None. DLP: 859.[address] scans at [facility] use at least one of these dose optimization techniques: automat ed exposure control; mA and/or kV adjustment per patient size (includes targeted exams where dose is matched to clinical indication); or iterative reconstruction. FINDINGS: No evidence of intracranial hemorrhage or mass effect. Ventricular system and basal cisterns are mendoza nt. Mild small vessel changes with mild parenchymal volume loss. No extra-axial fluid collections. No evidence of mass or mass effect. Normal mejia-white differentiation. Paranasal sinuses and mastoid air cells are well aerated. .Normal visualized soft tissues. CT/CT head wo con* [id number] IMPRESSION: 1. No evidence of intracranial hemorrhage or mass effect. 2. Mild small vessel changes. Mild parenchymal volume loss. 3. No acute intracranial findings.
== END 2020-06-18 08:58 | disposition home or self-care (01) ==
PROVIDERS: PCP Family Medicine; Visit Provider Family Medicine
DX: Z86.73 Personal history of transient ischemic attack (TIA), and cerebral infarction without residual deficits (principal)
CPT/HCPCS: 70450

== ENCOUNTER 2020-06-25 06:00 | Outpatient (RCR) | payer MEDICARE, MEDICAID, SELFPAY | END 2020-07-24 23:59 | disposition home or self-care (01) | LOC: WPT 06:00 | PROVIDERS: Family Provider Family Medicine; PCP Family Medicine; Referring Provider Family Medicine; Visit Provider Family Medicine | DX: Z86.73 Personal history of transient ischemic attack (TIA), and cerebral infarction without residual deficits (principal) | CPT/HCPCS: 97110 ==

== ENCOUNTER 2020-07-27 09:56 | Outpatient (CLI) | payer MEDICARE, MEDICAID, SELFPAY ==
--- NOTE | 2020-07-27 10:02 | USCV_ITS ---
Olga Suresh Age: 70 Gender: F : 1950 Exam Date: 07/27/2020 10:53 Ordering Phys: Buck Herbert MD Technologist: Ramila Baugh [place] [facility] [place]: CVA BP: / HR: 66 Rhythm: Sinus Technical Quality: Adequate MEASUREMENTS (Male / Female) Normal Values 2D ECHO LV Diastolic Diameter PLAX 4.2 cm 4.2 - 5.9 / 3.9 - 5.3 cm LV Systolic Diameter PLAX 3.6 cm LV Chamber Size 2.6 cm IVS Diastolic Thickness 1.1 cm 0.6 - 1.0 / 0.6 - 0.9 cm IVS Systolic Thickness 1.1 cm LVPW Diastolic Thickness 1.0 cm 0.6 - 1.0 / 0.6 - 0.9 cm LVPW Systolic Thickness 1.1 cm RV Chamber Size 1.6 cm LVOT Diameter 1.8 cm LV Ejection Fraction 2D Teich 27.9 % LV Ejection Fraction MOD 2C 68.6 % LV Ejection Fraction 2C AL 67.8 % LA Diameter 2.4 cm LA Width 2.8 cm LA Height 3.6 cm RA Width 3.6 cm RA Height 3.3 cm Aorta at Sinotubular Diameter 2.8 cm M-MODE LV Diastolic Diameter MM 4.8 cm 4.2 - 5.9 / 3.9 - 5.3 cm LV Systolic Diameter MM 2.8 cm LV Ejection Fraction MM Teich 72.9 % IVS Diastolic Thickness MM 1.0 cm 0.6 - 1.0 / 0.6 - 0.9 cm IVS Systolic Thickness MM 1.2 cm LVPW Diastolic Thickness MM 0.8 cm 0.6 - 1.0 / 0.6 - 0.9 cm LVPW Systolic Thickness MM 1.4 cm RV Diastolic Diameter MM 1.2 cm Aortic Annulus Diameter 3.0 cm LA Ao Ratio MM 0.9 MV E Point Septal Separation 0.3 cm DOPPLER AV Peak Velocity 174.0 cm/s LVOT Peak Velocity 117.0 cm/s AV Area Cont Eq vti 1.6 cm squared AV Area Cont Eq pk 1.7 cm squared MV Area PHT 5.0 cm squared Mitral E to A Ratio 0.9 MV E' Velocity 59.5 cm/s Mitral E to MV E' Ratio 14.0 Mitral E to LV E' Lateral Ratio 15.4 Mitral E to LV E' Septal Ratio 12.9 TR Peak Velocity 233.7 cm/s TR Peak Gradient 21.8 mmHg TR Mean Velocity 166.0 cm/s TR Mean Gradient 12.6 mmHg TR Velocity Time Integral 61.8 cm TV Peak E Velocity 52.0 cm/s Right Atrial Pressure 3.0 mmHg Pulmonary Artery Systolic Pressu 24.8 mmHg PV Peak Velocity 66.0 cm/s RV Acceleration Time 0.2 s RV Ejection Time 0.3 s RV AcT/ET 0.5 FINDINGS Left Ventricle Normal left ventricular size and systolic function, EF 64 %. No regional wall motion abnormalities. Right Ventricle The right ventricle is normal in size and function. Right Atrium The right atrium is normal in size. Left Atrium The left atrium is normal in size. Mitral Valve Thickened mitral valve. Trace mitral valve regurgitation. Aortic Valve Thickened aortic valve. Trace aortic valve regurgitation. Tricuspid Valve Trace tricuspid valve regurgitation. Pulmonic Valve Structurally normal pulmonic valve without significant stenosis. There is no pulmonic regurgitation. Pericardium Normal pericardium without effusion. Aorta Normal ascending aorta dimension. CONCLUSIONS Normal left ventricular size and systolic function, EF 64 %. The left atrium is normal in size. No regional wall motion abnormalities. Thickened aortic valve. Trace aortic valve regurgitation. Thickened mitral valve. Trace mitral valve regurgitation. Trace tricuspid valve regurgitation. There is no pericardial effusion. There are no intracardiac masses. Estimated pulmonary artery peak systolic pressure 25 mmHg Compared to the study from 10/21/2015, there may not be a significant change Dr Jeremy Darnell MD FAC (Electronically Signed) Final Date: 28 Jul 2020 19:53 S
--- NOTE | 2020-07-27 11:00 | USCV_ITS ---
Olga Suresh Age: 70 Gender: F : 1950 Exam Date: 07/27/2020 10:32 Ordering Phys: Jeremy Darnell MD ([email or web address]) Technologist: Ramila Baugh [place] [facility] [place]ication: CVA Risk Factors: Unknown Previous Vascular Surgery: None Right Brachial BP: / Left Brachial BP: / Right Left Velocity (cm/s) Spectral Plaque Velocity (cm/s) Spectral Plaque Syst/Diast Broadening Syst/Diast Broadening 97.60/ 14.30 Prox CCA 75.90 / 15.40 75.20/ 18.80 Mid CCA 79.20 / 18.20 46.10/ 11.50 Hetro Distal CCA 83.50 / 17.10 Hetro 117.30/29.80 Hetro Prox ICA 94.40 / 21.70 Hetro 119.20/27.90 Hetro Mid ICA 114.90/ 19.10 Hetro 102.80/28.80 Distal ICA 109.80/ 28.10 75.00 Hetro ECA 79.20 Hetro 1.58 ICA/CCA 1.45 Antegrade Vertebral Antegrade 55.70/ 15.40 cm/s 46.80/ 10.60 cm/s Tri Subclavian Toombs 111.5 136.6 0 0 FINDINGS Intimal thickening and minimal plaques in the common carotid arteries bilaterally Moderate heterogeneous plaques at the bifurcation and internal carotid arteries bilaterally Antegrade flow in the vertebral arteries bilaterally Normal Doppler velocities in the external carotid and subclavian arteries bilaterally CONCLUSIONS Moderate heterogeneous plaques at the bifurcation and internal carotid arteries bilaterally with velocity elevation, consistent with less than 50% stenosis. Intimal thickening and minimal plaques in the common carotid arteries bilaterally. No significant stenosis in the subclavian or vertebral arteries bilaterally, based on the above findings Dr Jeremy Darnell MD [facility] (Electronically Signed) Final Date: 29 Jul 2020 07:44 S
== END 2020-07-27 09:57 | disposition home or self-care (01) ==
LOC: US 10:00
PROVIDERS: PCP Family Medicine; Visit Provider Internal Medicine Cardiovascular Disease
DX: I77.9 Disorder of arteries and arterioles, unspecified (principal); Z86.73 Personal history of transient ischemic attack (TIA), and cerebral infarction without residual deficits; I65.29 Occlusion and stenosis of unspecified carotid artery; I08.3 Combined rheumatic disorders of mitral, aortic and tricuspid valves
CPT/HCPCS: 93306; 93880

== ENCOUNTER 2020-09-04 09:46 | Outpatient (CLI) | payer MEDICARE, MEDICAID, SELFPAY ==
[2020-09-04 10:00] VITALS: BMI 26.5
--- NOTE | 2020-09-04 11:03 | NMCV_ITS ---
NM anabel perf SPECT r/s* [id number] Olga Suresh Age: 70 Gender: F : 1950 Exam Date: 09/04/2020 11:03 Ordering Phys: Buck Herbert MD Technologist: DORINA Dias Exam Location: [facility] Indications: CHEST PAIN STRESS TEST Please [facility] IMAGE PROTOCOL Rest/Stress 1 Lexiscan Day Radiopharmaceutical Dose (mCi) Administration Site Administered by Rest: Tc-99m 10.5 IV DORINA Dias Sestamibi Stress:Tc-99m 32.8 IV DORINA Coon Sestamibi Rest: 04-Sep-2020 60 Discovery 630 Stress: 04-Sep-2020 30 Discovery 630 0.4mg Lexiscan. Supine position only as patient was unable to lay prone. SPECT RESULTS Technical Quality: Excellent Raw Data Analysis: Normal Image Corrections: No attenuation or motion correction applied Summed Stress Score: 0 Summed Rest Score: 7 Summed Difference Score: 0 PERFUSION FINDINGS Small areas of slightly decreased tracer uptake in the apical segments FUNCTIONAL RESULTS (calculated via Gated SPECT) Stress Image LV EF (%): 82 Stress EDV (mL):84 TID: 1.43 Stress ESV (mL):15 FUNCTIONAL FINDINGS: Segmental wall motion analysis revealing no gross wall motion normalities. IMPRESSIONS 1. Myocardial perfusion imaging revealing small areas of persistent decreased tracer uptake in the apical segments, suggesting myocardial scarring versus attenuation artifacts. 2. Normal LV ejection fraction of 82%. 3. LV wall motion analysis revealing no gross wall motion normalities. 4. Normal LV volume. 5. Elevated transient ischemic dilatation ratio Elevated transient ischemic dilatation ratio, may suggest endocardial ischemia. However the positive predictive value of this finding is limited. Clinical correlation is recommended. Dr Jeremy Darnell MD FACC (Electronically Signed) Final Date: 04 September 2020 16:03 S
--- NOTE | 2020-09-04 11:03 | ECG_ITS ---
[facility] Test Date: 2020-09-04 Pat Name: Olga Suresh Department: Room: Gender: Female Director [facility]: : 1950 Requested By: Buck Herbert Order Number: [id number] Macey MD: Juaquin Rahman M.D. Interpretive Statements NAME OF STUDY: LEXISCAN SESTAMIBI STRESS TEST INDICATION: [Chest Pain, ] Procedure: At the baseline, the blood pressure was 100/42 mmHg with a heart rate of 68 bpm. The electrocardiogram showed normal sinus rhythm, normal axis with normal ST and T's. The Lexiscan was infused over a period of 20 seconds. A total of 0.4 mg of Lexiscan was infused. The stress phase was continued for a total of 5 minutes. Heart rate was at the end of stress phase was 74 bpm and a blood pressure of 108/45 mmHg. The EKG at the peak infusion revealed since normal sinus rhythm with no significant ST-T wave changes. Sestamibi was injected 20 seconds after the Lexiscan infusion. Blood pressure at the end of recovery phase was 111/46 mmHg with a heart rate of 72 bpm. Conclusion: 1. Normal EKG response to Lexiscan infusion 2. No Lexiscan induced chest pain or cardiac arrhythmia. 3. Normal blood pressure and heart rate response. 4. Sestamibi/sestamibi perfusion scan pending; see separate report. Electronically Signed On 10-20-2020 15:08:04 CDT by Juaquin Rahman M.D. [id number]
[2020-09-04] MEDS: regadenoson 0.4 Mg/5 ml Syringe IVP (11:59)
[2020-09-04 12:06] VITALS: BP 111/46; PULSE 75
== END 2020-09-04 09:47 | disposition home or self-care (01) ==
PROVIDERS: PCP Family Medicine; Visit Provider Family Medicine
DX: R07.9 Chest pain, unspecified (principal); R94.39 Abnormal result of other cardiovascular function study
CPT/HCPCS: 78452; 84315; 93017; A9500; J2785

== ENCOUNTER 2020-09-14 08:00 | Day surgery (SDC) | payer MEDICARE, MEDICAID, SELFPAY ==
[2020-09-14 10:54] VITALS: BMI 28.0
--- NOTE | 2020-09-14 10:59 | ECG_ITS ---
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 Measurements Intervals [place] Rate: 68 P: 63 [place]: 130 QRS: 58 QRSD: 98 T: 71 QT: 401 QTc: 429 Interpretive Statements SINUS RHYTHM Compared to ECG 09/29/2015 00:57:45 Intraventricular conduction delay no longer present Electronically Signed On 09-14-2020 18:54:49 CDT by Jeremy Darenll M.D. [id number]
[2020-09-14 11:30] LABS: Add Urine Microscopic? NO; Charge for UA Resulting for Rev
[2020-09-14 11:36] LABS: Bilirubin Urine Neg (Negative); Blood Urine Neg (Negative); Glucose Urine UA Norm (Normal); Ketones Urine 1+ (Negative); Nitrate Urine Negative (Negative); Protein Urine Neg (Negative); Urine Appearance Cloudy (CLEAR); pH Urine 6.5 (5-7)
[2020-09-14 11:37] LABS: Leukocyte Esterase Urine 2+ (Negative); Urobilinogen Urine 4 mg/dL (Negative)
[2020-09-14 11:38] LABS: Urine Color Yellow (Yellow)
--- NOTE | 2020-09-14 11:41 | P.ANESASSM_ITS ---
Pre-Anesthetic Assessment Pre-Anesthetic Assessment: Height/Weight: Height 1.6 m Weight 71.668 kg Preop Diagnosis: Uterine prolapse, stress incontinence Proposed Procedure: Operation Date: 09/16/20 10:30 Proposed Procedures p Total Vaginal Hysterectomy [id number] 23259 N81.10 N81.4(Not Applicable) - Sagar Adler MD s Anterior Repair Anterior Colporrhaphy(Not Applicable) - MD poornima Hall Sling(Not Applicable) - Sagar Adler MD s Sacrospinous Ligament Suspension(Not Applicable) - Sagar Adler MD Familial anesthetic complications: None Social: Social History: No alcohol and No tobacco Exam: Pre-Anes Outpt Exam: alert, oriented x 3, clear to auscultation bilaterally and regular rate & rhythm Airway: Dentition: Chipped, Loose and Other (poor dentition, discolored) CV/HEM: CV/HEM: CAD and CHF Comments: Per Dr. Adler's documentation in office She has not been cleared by Dr. Herbert but she has been cleared by david graham. She is scheduled for a brain MRI later this month IMPRESSIONS 1. Myocardial perfusion imaging revealing small areas of persistent decreased tracer uptake in the apical segments, suggesting myocardial scarring versus attenuation artifacts. 2. Normal LV ejection fraction of 82%. 3. LV wall motion analysis revealing no gross wall motion normalities. 4. Normal LV volume. 5. Elevated transient ischemic dilatation ratio Elevated transient ischemic dilatation ratio, may suggest endocardial ischemia. However the positive predictive value of this finding is limited. Clinical correlation is recommended. CONCLUSIONS Normal left ventricular size and systolic function, EF 64 %. The left atrium is normal in size. No regional wall motion abnormalities. Thickened aortic valve. Trace aortic valve regurgitation. Thickened mitral valve. Trace mitral valve regurgitation. Trace tricuspid valve regurgitation. There is no pericardial effusion. There are no intracardiac masses. Estimated pulmonary artery peak systolic pressure 25 mmHg Compared to the study from 10/21/2015, there may not be a significant change Metabolic: Metabolic: DM and Hyperlipidemia Neuropsych: Neuropsych: Anxiety and CVA Anesthetic Plan: ASA status: 3 Risk of > 500 ml blood loss (7ml/kg in children): No Other Pertinent Information: Patient extremely poor historian PFSH Anesthesia PFSH: Medical History CAD (coronary artery disease) LAD stent 2004 & 2008, last mibi stress test 02/12 was negative for ischemia but showed scarring. Chronic pain syndrome Cough Dyslipidemia Enrolled in chronic care management Generalized anxiety disorder History of TIA (transient ischemic attack) and stroke Hypertension Type 2 diabetes mellitus (~07/02/19) Surgical History History of appendectomy History of tubal ligation Family History Father CAD (coronary artery disease) Lung disease Sister CAD (coronary artery disease) Cancer Chronic kidney disease (CKD) Diabetes Breast cancer onset unknown Colon cancer age onset unknown Brother CAD (coronary artery disease) Cancer Diabetes Hypertension Hyperlipidemia Colon cancer age onset unknown Mother Stroke Thyroid condition Other Heart disease Denies family history of Ovarian cancer Clotting disorder Dementia Suicide Anesthesia complication Bleeding disorder Uterine cancer Social History (Updated 09/14/20 @ 07:56 by Madelin Kasper RN) Smoking and tobacco status: never smoked Alcohol intake: never Substance/Drug Use: never Marital status: / Current gender identity: Female Data Anesthesia CBC & Chem 7: 09/14/20 11:22 09/14/20 11:22 Other Labs: Laboratory Results - last 48 hr 09/14/20 11:20 Urine Color Yellow Urine Appearance Cloudy Urine pH 6.5 Ur Specific [place] 1.020 Urine Protein Neg Urine Glucose (UA) Norm Urine Ketones 1+ H Urine Blood Neg Urine Nitrate Negative Urine Bilirubin Neg Urine Urobilinogen 4 H Ur Leukocyte Esterase 2+ H Cardiac Studies: Cardiac Event Monitor 07/01/20
[2020-09-14 11:56] LABS: Basophils % 0.6 %; Eosinophils % 0.3 %; Hematocrit 38.8 % (37.0-47.0); Hemoglobin 12.2 g/dL (11.5-15.3); Lymphocytes # 1.1 10^3/uL (0.8-4.8); Mean Corpuscular HGB Conc 31.4 g/dL (30.0-36.0); Mean Corpuscular Hemoglobin 29.3 pg (28.0-34.0); Mean Corpuscular Volume 93.3 fL (81-99); Mean Platelet Volume 11.5 fL (7.4-10.4); Monocytes # 0.5 10^3/uL (0.2-0.9); Monocytes % 13.2 %; Neutrophils # 1.91 10^3/uL (1.8-7.7); Neutrophils % 53.6 %; Nucleated Red Blood Cells % 0 %; Platelet Count 116 10^3/cmm (130-400); Red Blood Count 4.16 10^6/uL (4.1-5.3); Red Cell Distribution Width 13.5 % (12.1-15.1); White Blood Count 3.6 10^3/uL (4.0-10.0)
[2020-09-14 12:09] LABS: INR 1.08 (0.8-1.2)
[2020-09-14 12:33] LABS: Alanine Aminotransferase 19 U/L (0-33); Albumin Level 4.3 g/dL (3.5-5.2); Alkaline Phosphatase 75 IU/L (35-105); Anion Gap 18.3 (5-19); Aspartate Amino Transferase 28 U/L (0-32); Blood Urea Nitrogen 21 mg/dL (8-23); Calcium 8.7 mg/dL (8.5-10.5); Carbon Dioxide 24 mmol/L (22-29); Chloride 102 mmol/L (98-107); Globulin 2.5 g/dL (1.3-4.6); Glucose 88 mg/dL (65-115); Osmolality Calculated 292 mOsm/kg (285-295); Potassium 4.3 mmol/L (3.5-5.1); Sodium 140 mmol/L (136-145); Total Bilirubin 0.4 mg/dL (0.15-1.2); Total Protein 6.8 g/dL (6.6-8.7)
== END 2020-09-14 15:00 | disposition home or self-care (01) ==
LOC: OPS 11-17 10:39
PROVIDERS: PCP Family Medicine; Visit Provider Obstetrics & Gynecology
DX: Z01.818 Encounter for other preprocedural examination (principal); N81.10 Cystocele, unspecified; N39.3 Stress incontinence (female) (male); I25.10 Atherosclerotic heart disease of native coronary artery without angina pectoris; I11.0 Hypertensive heart disease with heart failure; I50.9 Heart failure, unspecified; E78.5 Hyperlipidemia, unspecified; Z86.73 Personal history of transient ischemic attack (TIA), and cerebral infarction without residual deficits; E11.9 Type 2 diabetes mellitus without complications
CPT/HCPCS: 36415; 80053; 81003; 85025; 85610; 86850; 86900; 87077; 87086; 87186; 93005

== ENCOUNTER → 2020-09-14 09:07 | Outpatient (BNVA) | payer MEDICARE, MEDICAID, SELFPAY | PROVIDERS: PCP Family Medicine; Visit Provider Obstetrics & Gynecology | DX: N81.4 Uterovaginal prolapse, unspecified (principal); Z20.822 Contact with and (suspected) exposure to COVID-19 | CPT/HCPCS: 87635 ==

== ENCOUNTER 2020-12-23 15:54 | Outpatient (CLI) | payer MEDICARE, MEDICAID, SELFPAY ==
--- NOTE | 2020-12-23 16:45 | MR_ITS ---
WS: [id number] MRI BRAIN WITHOUT CONTRAST HISTORY: Z01.818 - Encounter for other preprocedural examination, history of strokes. COMPARISON: CT head 06/18/2020 TECHNIQUE: Diffusion imaging, multiplanar T1, T2 and FLAIR imaging obtained. Quality of this examination is significantly limited by motion artifact. No diffusion-weighted abnormalities are evident. Small infarcts may be obscured with this amount of m otion. No large area of hemorrhage. Mild small vessel ischemic disease. No large infarcts identified. Ventricles and extra-axial spaces are mildly prominent on the basis of atrophy. No inferior displacement of cerebellar tonsils. The sella turcica and pituitary gland are unremarkabl e. Dural venous sinuses and [place] demonstrate no abnormality on this unenhanced studies. Paranasal sinuses: Clear. Mastoid air cells: Normal. Calvarium and scalp: Intact. MR/MR head wo con* [id number] IMPRESSION: 1. Quality of this examination is significantly degraded by motion artifact. 2. No large areas infarcts or prior infarcts or hemorrhage. 3. Mild chronic microvascular ischemic disease and mild atrophy.
== END 2020-12-23 15:55 | disposition home or self-care (01) ==
LOC: RADSHAW 16:00
PROVIDERS: PCP Family Medicine; Visit Provider Family Medicine
DX: Z01.818 Encounter for other preprocedural examination (principal); I63.9 Cerebral infarction, unspecified; R53.1 Weakness; I67.82 Cerebral ischemia
CPT/HCPCS: 70551

== ENCOUNTER → 2021-03-12 08:42 | Outpatient (BNVA) | payer MEDICARE, MEDICAID, SELFPAY | PROVIDERS: PCP Family Medicine; Visit Provider Obstetrics & Gynecology | DX: I48.91 Unspecified atrial fibrillation (principal); N81.4 Uterovaginal prolapse, unspecified | CPT/HCPCS: 85610; 85730; 87635 ==

== ENCOUNTER 2021-03-17 11:00 | Observation (INO) | payer MEDICARE, MEDICAID, SELFPAY ==
[2021-03-12 11:16] VITALS: BMI 28.1
--- NOTE | 2021-03-12 11:39 | ECG_ITS ---
[facility] Test Date: 2021-03-12 Pat Name: Olga Suresh Department: Room: Gender: Female [employer]: : [id number] Requested By: Adams Lopez Order Number: [id number] Macey MD: Sarah Goldsmith M.D. Measurements Intervals [place] Rate: 72 P: 50 MN: 138 QRS: 43 QRSD: 109 T: 58 QT: 389 QTc: 427 Interpretive Statements SINUS RHYTHM Compared to ECG 09/14/2020 11:26:26 No significant changes Electronically Signed On 03-13-2021 7:33:31 COMPRESSED GAS TESTER by Sarah Goldsmith M.D. [id number]
--- NOTE | 2021-03-12 12:14 | ANES.PREANE2 ---
Pre-Anesthetic Assessment Pre-Anesthetic Assessment: Height/Weight: Height 1.6 m Weight 72.121 kg Preop Diagnosis: Uterine prolapse, stress incontinence Proposed Procedure: Operation Date: 03/17/21 08:50 Proposed Procedures p Colpocleisis [place] Procedure 14282 N81.4(Not Applicable) - Sagar Adler MD Was Beta Toni taken within 24 hours: N/A Was Clonidine taken within 24 hours: N/A Social: Social History: No alcohol and No tobacco Exam: Pre-Anes Outpt Exam: alert, oriented x 3, clear to auscultation bilaterally and regular rate & rhythm Airway: Submandibular: WNL Cervical ROM: WNL MP: 2 Dentition: Chipped Additional comments: Very poor dentition, multiple missing and cracked CV/HEM: CV/HEM: CAD (Stents) and HTN Metabolic: Metabolic: DM and Hyperlipidemia Musc/skel: Musc/skel: Weakness Comments: chronic pain/opioid Neuropsych: Neuropsych: Anxiety, CVA, Depression and TIA Anesthetic Plan: ASA status: 3 Anesthesia: General Risk of > 500 ml blood loss (7ml/kg in children): No PFSH Anesthesia PFSH: Medical History CAD (coronary artery disease) LAD stent 2004 & 2008, last mibi stress test 02/12 was negative for ischemia but showed scarring. Chronic pain syndrome Cough Dyslipidemia Enrolled in chronic care management Generalized anxiety disorder History of TIA (transient ischemic attack) and stroke Hypertension Type 2 diabetes mellitus (~07/02/19) Surgical History History of appendectomy History of tubal ligation Family History Father CAD (coronary artery disease) Lung disease Sister CAD (coronary artery disease) Cancer Chronic kidney disease (CKD) Diabetes Breast cancer onset unknown Colon cancer age onset unknown Brother CAD (coronary artery disease) Cancer Diabetes Hypertension Hyperlipidemia Colon cancer age onset unknown Mother Stroke Thyroid condition Other Heart disease Denies family history of Ovarian cancer Clotting disorder Dementia Suicide Anesthesia complication Bleeding disorder Uterine cancer Social History (Updated 03/12/21 @ 08:44 by Madelin Kasper RN) Smoking and tobacco status: never smoked Alcohol intake: never Substance/Drug Use: never Marital status: / Current gender identity: Female Data Anesthesia Cardiac Studies: Cardiac Event Monitor 07/01/20
[2021-03-17] VITALS (16 sets, daily range): BP systolic 122–184; BP diastolic 63–97; PULSE 50–86; RESP 12–18; TEMP 36.2–37; O2SAT 99–100; BMI 28.1
--- NOTE | 2021-03-17 08:23 | W.PM.OPSUD ---
Surgery/Procedure H&P Update DATE OF PROCEDURE: March 17, 2021 DATE H&P PERFORMED: 09/14/20 H&P UPDATE INFORMATION: I have reviewed H&P completed within last 30 days, I have examined patient prior to procedure and No changes to prior documentation PREOP DIAGNOSIS: Uterine prolapse, stress incontinence PLANNED PROCEDURE: Operation Date: 03/17/21 08:50 Proposed Procedures p Colpocleisis [place] Procedure 20017 N81.4(Not Applicable) - Sagar Adler MD
--- NOTE | 2021-03-17 08:25 | P.ANESUD_ITS ---
Pre-Anesthetic Update Pre-Anesthetic Assessment: Date of Surgery/Procedure: 03/17/21 Preop Loan gnosis: Uterine prolapse, stress incontinence Proposed Procedure: Operation Date: 03/17/21 08:50 Proposed Procedures p Colpocleisis [place] Procedure 55588 N81.4(Not Applicable) - Sagar Adler MD Any changes to Pre-Anesthetic Assessment?: No Last Intake: Intake Last Liquid Date 03/16/21 Last Liquid Time 21:00 Last Solid Date 03/16/21 Last Solid Time 21:00 Vitals: Temperature 97.1 F L 03/17/21 07:50 Temperature Source Temporal Artery S can 03/17/21 07:50 Pulse Rate 74 03/17/21 07:50 Pulse Rhythm 03/17/21 08:17 Pulse Strength 3+ Normal 03/17/21 08:17 Respiratory Rate 18 03/17/21 07:50 Blood Pressure 146/97 03/17/21 07:50 Blood Pressure Temitope n 113 03/17/21 07:50 Pulse Oximetry 99 03/17/21 07:50 Oxygen Delivery Me thod 03/17/21 08:17 Exam: Pre-Anes Outpt Exam: alert, oriented x 3, clear to auscultation bilaterally and regular rate & rhythm Cardiac Studies: 2 Cardiac Event Monitor 07/01/20
[2021-03-17] MEDS: scopolamine 1.5 Patch 1 PATCH TRANSDERMA (08:34)
[2021-03-17] MEDS: enoxaparin 30 mg/0.3 mL Syringe SUBCUT (08:34)
[2021-03-17] MEDS: sodium chloride 0.9% 1,000 ML 30 ML IV (08:35)
[2021-03-17 08:48] LABS: Glucose Point of Care 52 mg/dL (70-110)
[2021-03-17 08:48] LABS: Glucose Point of Care 47 mg/dL (70-110)
[2021-03-17 08:49] LABS: Basophils % 0.2 %; Eosinophils % 0.4 %; Hematocrit 33.5 % (37.0-47.0); Hemoglobin 11.1 g/dL (11.5-15.3); Lymphocytes # 1.2 10^3/uL (0.8-4.8); Lymphocytes % 14.8 %; Mean Corpuscular HGB Conc 33.1 g/dL (30.0-36.0); Mean Corpuscular Hemoglobin 30.5 pg (28.0-34.0); Mean Platelet Volume 10.3 fL (7.4-10.4); Monocytes # 0.6 10^3/uL (0.2-0.9); Monocytes % 6.9 %; Neutrophils # 6.47 10^3/uL (1.8-7.7); Neutrophils % 77.5 %; Nucleated Red Blood Cells % 0 %; Platelet Count 212 10^3/cmm (130-400); Red Blood Count 3.64 10^6/uL (4.1-5.3); Red Cell Distribution Width 12.5 % (12.1-15.1); White Blood Count 8.4 10^3/uL (4.0-10.0)
[2021-03-17] MEDS: dextrose 50% syringe 50 mL 25 ML IVP (08:50)
[2021-03-17 09:11] LABS: Alanine Aminotransferase 10 U/L (0-33); Albumin Level 4.1 g/dL (3.5-5.2); Alkaline Phosphatase 97 IU/L (35-105); Anion Gap 17.3 (5-19); Aspartate Amino Transferase 15 U/L (0-32); Blood Urea Nitrogen 10 mg/dL (8-23); Calcium 9.3 mg/dL (8.5-10.5); Carbon Dioxide 25 mmol/L (22-29); Chloride 102 mmol/L (98-107); Glucose 46 mg/dL (65-115); Osmolality Calculated 288 mOsm/kg (285-295); Potassium 3.3 mmol/L (3.5-5.1); Sodium 141 mmol/L (136-145); Total Bilirubin 0.2 mg/dL (0.15-1.2); Total Protein 7.1 g/dL (6.6-8.7)
[2021-03-17 09:11] LABS: Add Urine Microscopic? NO; Charge for UA Resulting for Rev
[2021-03-17 09:13] LABS: Glucose Point of Care 102 mg/dL (70-110)
[2021-03-17 09:36] LABS: Bilirubin Urine Neg (Negative); Blood Urine Neg (Negative); Glucose Urine UA Norm (Normal); Ketones Urine Negative (Negative); Leukocyte Esterase Urine Negative (Negative); Nitrate Urine Negative (Negative); Protein Urine Neg (Negative); Sulfosalicylic Acid Urine Negative (Negative); Urine Appearance Clear (CLEAR); Urine Color Colorless (Yellow); Urobilinogen Urine Norm (Negative); pH Urine 8 (5-7)
--- NOTE | 2021-03-17 10:58 | P.OP_ITS ---
Operative Report Date of procedure: March 17, 2021 Pre-op Diagnosis: Uterine prolapse, stress incontinence Post-op diagnosis: same Procedure Done: Colpocleisis [place] procedure Pathology: none sent Surgeon: Sagar Adler MD Anesthesia: General Estimated blood loss (mL): 50 IV fluids (mL): 800 Complications: Bleeding Condition: stable Disposition: PACU Procedure: After informed consent, the patient was taken to the Operating Room where general anesthesia was administered. She was placed in the dorsal lithotomy position and prepped and draped in sterile fashion. A time out procedure was performed. 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 A Charles catheter was placed into the bladder identify the bladder neck. Placing the cervix on traction to daniela the vagina. The vaginal mucosa was injected with either bupivacaine or 2% lidocaine with 1:200,000 epinephrine, just below the vaginal epithelium anteriorly and posteriorly. With marking pen to joyce out the rectangular areas of the vaginal epithelium that are to be removed anteriorly and posteriorly. Extend the anterior rectangle from approximately 2 cm from the tip of the cervix to 4 or 5 cm below the external urethral meatus. A mirror image on the posterior aspect of the cervix and vagina. Extend the rectangle on the posterior vaginal wall from approximately 2 cm below the level of the tip f the cervix to 4 or 5 cm inside the posterior fourchette. A vertical midline incision was made beneath the midurethra, nearly 1.5 cm length. Careful submucosal dissection was performed bilaterally up to the interior portion of the inferior pubic ramus. The insertion of adductor longus tendon on the patient?s pubic ramus was identified as reference land joyce. Palpated the notch along the internal edge of ischiopubic ramus where the adductor longus tendon and the inferior pubic ramus meet. The mesh of the sling was lined anteriorly and posteriorly with the thin Matristem porcine graft before placement fixed to the mesh with PDS suture. The needle of the SIS inserted aiming at the location of this notch. One of the integrated self- fixating tips place onto the needle by sliding it over the end of the needle. The needle/sling assembly was inserted toward the location of identified reference notch making sure that the flat of the handle is perpendicular to the desired path. The needle was tracked along the posterior surface of the ischiopubic ramus until the midline joyce on the mesh is approximately at the midline position under the urethra. The needle was removed and the same was repeated on the contralateral side until the appropriate sling tension under the urethra was achieved ensuring that the mesh lays flat. The needle was removed and vaginal incision was closed in a running interlocking fashion with 2-0 Vicryl. A single-tooth tenaculum was then applied to the cervix. The vaginal epithelium from both the anterior and posterior vaginal head were incised as marked and with sharp dissection dissected off leaving the maximum amount possible of vaginal muscularis on the underlying bladder and the rectum. The cut edges of the anterior and posterior vaginal head were sew together with interrupted delayed absorbable sutures gradually turning the uterus and vaginal apex inward. Then the superior and inferior margins of the rectangles were sutured together. Excellent hemostasis was obtained. Sponge, lap, needle, and instrument counts were correct times three. The patient was taken to the recovery room, awake and in stable condition.
[2021-03-17] MEDS: ondansetron 2 mg/ML SDV 2 mL 4 MG IVP (11:14)
[2021-03-17] MEDS: fentaNYL 50 mcg/mL INJ 2mL IVP (11:17)
[2021-03-17 11:35] LABS: Glucose Point of Care 66 mg/dL (70-110)
[2021-03-17 11:35] LABS: Glucose Point of Care 94 mg/dL (70-110)
[2021-03-17 11:35] LABS: Glucose Point of Care 112 mg/dL (70-110)
[2021-03-17] MEDS: ketorolac 30 mg/mL INJ IVP ×2 (13:17→18:26)
--- NOTE | 2021-03-17 14:48 | ANE.PACU2 ---
Inpatient post-anesthesia follow up: Airway intact: Yes Vital signs: Temperature 97.4 F Pulse Rate 66 Respiratory Rate 12 Blood Pressure 147/70 Pulse Oximetry 100 Oxygen Delivery Me thod Nasal Cannula Oxygen Flow Rate 3 Fraction of Inspir ed Oxygen Hydration adequate: Yes Nausea and vomiting: No Pain level: 2 Mental status: Baseline
[2021-03-17] MEDS: dextrose 5%-lactated ringers 1,000 ML 125 ML IV ×2 (18:03→20:27)
[2021-03-17] MEDS: docusate sodium 100 mg Capsule PO (18:26)
[2021-03-17 18:35] LABS: Glucose Point of Care 99 mg/dL (70-110)
[2021-03-17] MEDS: sodium chloride 0.9% 500 ML IV (20:58)
[2021-03-17] MEDS: gabapentin 300 mg Capsule PO (21:05)
[2021-03-17] MEDS: hyDRALAzine 25 mg Tablet PO (21:06)
[2021-03-17 21:15] LABS: Glucose Point of Care 82 mg/dL (70-110)
[2021-03-17] MEDS: lactated ringers 1,000 ML 999 ML IV (22:52)
[2021-03-18] MEDS: ketorolac 30 mg/mL INJ IVP ×2 (00:50→06:45)
[2021-03-18] MEDS: FUROsemide 10 mg/mL SDV 2mL 20 MG IVP ×2 (00:50→06:47)
[2021-03-18] MEDS: sodium chlor 0.9% + KCl 40 mEq 40 MEQ/1,000 ML BAG 125 MEQ IV (00:56)
[2021-03-18 04:19] VITALS: BP 97/55; PULSE 68; RESP 18; TEMP 36.7; O2SAT 98
[2021-03-18 05:21] LABS: Hematocrit 24.2 % (37.0-47.0); Hemoglobin 7.8 g/dL (11.5-15.3); Mean Corpuscular HGB Conc 32.2 g/dL (30.0-36.0); Mean Corpuscular Hemoglobin 30.6 pg (28.0-34.0); Mean Corpuscular Volume 94.9 fl (81-99); Mean Platelet Volume 10.4 fL (7.4-10.4); Platelet Count 171 10^3/cmm (130-400); Red Blood Count 2.55 10^6/uL (4.1-5.3); Red Cell Distribution Width 12.7 % (12.1-15.1); White Blood Count 10.8 10^3/uL (4.0-10.0)
[2021-03-18 05:52] LABS: Alanine Aminotransferase 6 U/L (0-33); Albumin Level 3.1 g/dL (3.5-5.2); Alkaline Phosphatase 64 IU/L (35-105); Anion Gap 13.3 (5-19); Aspartate Amino Transferase 12 U/L (0-32); Blood Urea Nitrogen 9 mg/dL (8-23); Carbon Dioxide 23 mmol/L (22-29); Chloride 110 mmol/L (98-107); Osmolality Calculated 289 mOsm/kg (285-295); Potassium 4.3 mmol/L (3.5-5.1); Sodium 142 mmol/L (136-145); Total Bilirubin 0.3 mg/dL (0.15-1.2); Total Protein 5.1 g/dL (6.6-8.7)
[2021-03-18 05:57] LABS: Glucose 39 mg/dL (65-115)
[2021-03-18] MEDS: dextrose 5%-lactated ringers 1,000 ML 125 ML IV (06:11)
[2021-03-18 07:00] LABS: Glucose Point of Care 127 mg/dL (70-110)
[2021-03-18] MEDS: potassium chloride ER 20 mEq Tablet PO (10:01)
[2021-03-18 10:02] VITALS: BP 132/74
[2021-03-18] MEDS: docusate sodium 100 mg Capsule PO (10:02)
[2021-03-18] MEDS: hyDRALAzine 25 mg Tablet PO (10:02)
[2021-03-18] MEDS: losartan 50 mg Tablet 25 MG PO (10:02)
[2021-03-18] MEDS: clopidogrel 75 mg Tablet PO (10:04)
[2021-03-18] MEDS: FUROsemide 40 mg Tablet PO (10:04)
[2021-03-18] MEDS: atorvastatin 40 mg Tablet 20 MG PO (10:05)
[2021-03-18] MEDS: gabapentin 300 mg Capsule PO (10:05)
[2021-03-18] MEDS: aspirin 81 mg EC Tablet PO (10:06)
[2021-03-18 10:20] VITALS: BP 149/64; PULSE 80; RESP 19; TEMP 36.8; O2SAT 100
[2021-03-18] MEDS: insulin glargine 100 units/1 mL 45 UNIT SUBCUT (10:21)
[2021-03-18 10:38] LABS: Hematocrit 26.7 % (37.0-47.0); Hemoglobin 8.5 g/dL (11.5-15.3)
[2021-03-18 11:33] LABS: Glucose Point of Care 127 mg/dL (70-110)
--- NOTE | 2021-03-18 12:37 | PM.OBGYDC ---
Discharge Providers WAREHOUSE STOCK CLERK Date of Admission: 03/17/21 11:00 Date of Discharge: 03/18/21 Attending Provider at Admission: Sagar Adler MD Attending Provider at Discharge: Sagar Adler MD Primary Care Provider: Buck Herbert MD Reason for Visit Reason for Visit: Uterine prolapse Hospital Course Hospital Course Mrs. Camara 70-year-old female with a total uterine prolapse. Admitted for colpocleisis [place] procedure due to health issues. The procedures were performed without complication. Overnight observation complicated by low urine output which resolved after IV bolus and Lasix administration. Morning hypoglycemia was noted and treated. The patient preoperatively before admission was supposed to be using Plavix and she had not been using and she was prescribed heparin and was not administered. Heparin preoperatively was administered. Due to noncompliance with medication or poor care, case management consulted for home care. Patient was counseled regarding weight lifting limitations nothing greater than 10 pounds. She will be discharged home with Charles catheter and supposed to return to the clinic next week for discontinuation of the Charles catheter. Physical Exam Narrative: EXAM NARRATIVE: GA: Alert and oriented ?3. HEENT: WNL. Heart: Regular rate and rhythm. Lungs: Clear to auscultation bilaterally. Abdomen: Bowel sounds present, nontender. ATTENDING RADIOLOGIST: No bleeding. Extremities: No edema, no cyanosis, no calves pain. Urinary Catheter Management^: Charles: Cath Placed During This Visit: yes Reason for Continuing Indwelling Catheter: Perioperative Use in Selected Surgeries Urinary Catheter Date of Insertion: 03/17/21 Urinary Catheter Time of Insertion: 09:28 History History History 7 Term 6 Miscarriages/Ectopic 1 0 Living Children 5 Discharge Data Data Completed and Pending: Pending at discharge Category Date Time Status CMP [Comprehensiv e Metabolic Panel] Timed Lab 03/18/21 12:19 Received PRBC [Leukocyte R educed RBC] Routin e Lab 03/18/21 09:20 Results Type and Screen R outine Lab 03/17/21 08:25 Results Labs from last 24 hours 03/18/21 03/18/21 03/18/21 12:19 11:30 10:28 WBC RBC Hgb 8.5 L Hct 26.7 L MCV MCH MCHC RDW Plt Count MPV Sodium Pending Potassium Pending Chloride Pending Carbon Dioxide Pending Anion Gap Pending BUN Pending Creatinine Pending GFR Calculation Pending Glucose Pending POC Glucose 127 H Calculated Osmolal ity Pending Calcium Pending Total Bilirubin Pending AST Pending ALT Pending Alkaline Phosphata se Pending Total Protein Pending Albumin Pending Globulin Pending Blood Type Rho(D) Type Antibody Screen Crossmatch 03/18/21 03/18/21 03/18/21 06:57 05:00 05:00 WBC 10.8 H RBC 2.55 L Hgb 7.8 L Hct 24.2 L MCV 94.9 MCH 30.6 MCHC 32.2 RDW 12.7 Plt Count 171 MPV 10.4 Sodium 142 Potassium 4.3 Chloride 110 H Carbon Dioxide 23 Anion Gap 13.3 BUN 9 Creatinine 0.8 GFR Calculation Not Reportable Glucose 39 L* POC Glucose 127 H Calculated Osmolal ity 289 Calcium 8.0 L Total Bilirubin 0.3 AST 12 ALT 6 Alkaline Phosphata se 64 Total Protein 5.1 L D Albumin 3.1 L Globulin 2.0 Blood Type Rho(D) Type Antibody Screen Crossmatch 03/17/21 03/17/21 03/17/21 20:56 12:05 08:25 WBC RBC Hgb Hct MCV MCH MCHC RDW Plt Count MPV Sodium Potassium Chloride Carbon Dioxide Anion Gap BUN Creatinine GFR Calculation Glucose POC Glucose 82 99 Calculated Osmolal ity Calcium Total Bilirubin AST ALT Alkaline Phosphata se Total Protein Albumin Globulin Blood Type O Positive Rho(D) Type Positive Antibody Screen Negative Crossmatch See Detail Vitals: Last Vital Signs Temp 98.0 F 03/18/21 04:19 Pulse 68 03/18/21 04:19 Resp 18 03/18/21 04:19 BP 132/74 03/18/21 10:02 Pulse Ox 98 03/18/21 04:19 Discharge Plan Discharge Patient Disposition: Home Health Service Condition: Stable Prescriptions: New Colace 100 mg capsule 100 mg PO BID Qty: 60 RF: 0 acetaminophen 325 mg capsule 325 mg PO Q4H PRN (Reason: fever or pain) Qty: 60 RF: 0 Continued clopidogrel 75 mg tablet 75 mg PO DAILY RF: 0 hydralazine 25 mg tablet 25 mg PO TID 90 Days Qty: 270 RF: 1 gabapentin 300 mg capsule 300 mg PO BID 90 Days Qty: 180 RF: 1 Flovent HFA 220 mcg/actuation HFA aerosol inhaler 2 puff INHALATION QID PRN (Reason: Shortness Of Breath) 30 Days Qty: 12 RF: 5 Novolog Flexpen U-100 Insulin 100 unit/mL (3 mL) insulin pen See Rx Instructions SUBCUT TID Qty: 15 RF: 3 Lantus Solostar U-100 Insulin 100 unit/mL (3 mL) insulin pen 45 unit SUBCUT DAILY Qty: 15 RF: 5 aspirin 81 mg tablet,delayed release (DR/EC) 81 mg PO DAILY RF: 0 nitroglycerin 0.4 mg tablet, sublingual 0.4 mg sublingual Q5M PRN (Reason: chest pain) RF: 0 (DME) lancets [OneTouch Delica Lancets] 30 gauge misc See Rx Instructions .ROUTE .MEDSUPPLY Qty: 100 RF: 0 pen needle, diabetic [Easy Touch] 29 gauge x 1/2 needle See Rx Instructions .ROUTE .COMPLEX Qty: 100 RF: 0 alprazolam 0.5 mg tablet 0.5 mg PO TID PRN (Reason: Anxiety) 30 Days Qty: 75 RF: 0 furosemide [Lasix] 40 mg tablet 40 mg PO DAILY 90 Days Qty: 90 RF: 0 hydrocodone-acetaminophen 7.5-325 mg tablet 1 tab PO Q6H PRN (Reason: pain) 30 Days Qty: 90 RF: 0 losartan 25 mg tablet 25 mg PO DAILY 90 Days Qty: 90 RF: 1 potassium chloride [Klor-Con M20] 20 mEq tablet,ER particles/crystals 20 meq PO DAILY 90 Days Qty: 90 RF: 0 Crestor 5 mg tablet 5 mg PO DAILY 90 Days Qty: 90 RF: 3 Discharge Orders: Discharge Order (Routine); Ordered 03/18/21 Ordered By: Sagar Adler Referrals: Sagar Adler MD [Physician] - 04/05/21 3:00 pm (Monday or Monday for catheter removal Your 2 week post-op appointment is scheduled for 04/05/21 @3:00. Your 6 week post-op appointment is scheduled for 04/27/21 @2:00. ) Discharge Diet: Soft Mechanical Discharge Activity: Limit activity as instructed Patient Instructions: Uterine Prolapse (DC), Bladder Sling (GEN), Colpocleisis (DC), OB Discharge Report, OB Food/Drug Interaction Guide, Opioid Safety Activity Restrictions/Additional Instructions: 1. Please call [facility] on next working day to make your post-operative appointment in 2 weeks. 2. Please stay home until you come back to the clinic on first post-operative check up. 3. Please follow instructions on your medications CAREFULLY. 4. If you have abdominal incision, do not cover it unless dressing is necessary because of drainage. OK to shower, but avoid bath. Leave steri-strips until they fall off. If they are still on one week after surgery, you may remove them. 5. If you had vaginal surgery or vaginal repair, Dr. Adler may instruct you to take SITZ bath. 6. Yellow, blood tinged odorous vaginal discharge is usually normal after hysterectomy or vaginal surgeries. 7. No sexual intercourse, tampons, or douches until you are completely released from the post-operative care. 8. Avoid constipation by eating right and maybe using some Metamucil or Milk of Magnesia. 9. All prescription refills are given during the working hours. Please do no wait till it runs out. Call the clinic at [phone] before your medication runs out. The clinic will get in touch with your doctor to prescribe medications if necessary. 10. Please remain within 40 mile radius from our hospital because emergencies do happen now and then during the post-operative period. 11. If you have stairs at home, take one step at a time slowly and minimize the number of trips. It helps to stay in one floor for the next few days. No lifting except what you can lift by one hand until you are released from the post-operative care. 12. Driving is discouraged until you are well healed. It may be 3-4 weeks before you feel strong enough to drive. You should be able to turn and look through the rear window without pain and you should be able to push the brake pedal very hard without pain before you drive. No fast rules, but SAFETY should be your primary concern. DO NOT drive if you are on sedating medications such as narcotics. 13. Call the clinic (during working hours) to make urgent appointment or go to the Emergency room, if any of the following occurs: i. Vaginal bleeding becomes heavy, more than a period. ii. Incision becomes red and sore, or drains pus. iii. Your temperature is over 100.4 or you have chill. iv. IV site becomes red and swollen (a little ``knot?? is usually OK) v. Persistent nausea and vomiting vi. Persistent constipation or diarrhea vii. Rash or allergic reaction to medications. Discharge Attestations WAREHOUSE STOCK CLERK Time Spent in Discharge Care*: greater than 30 min Coding Level of Care Code Acute [employer] for [facility]
[2021-03-18 12:43] LABS: Alanine Aminotransferase 8 U/L (0-33); Albumin Level 3.5 g/dL (3.5-5.2); Alkaline Phosphatase 86 IU/L (35-105); Anion Gap 14.1 (5-19); Aspartate Amino Transferase 16 U/L (0-32); Blood Urea Nitrogen 12 mg/dL (8-23); Calcium 8.1 mg/dL (8.5-10.5); Carbon Dioxide 24 mmol/L (22-29); Chloride 107 mmol/L (98-107); Globulin 2.2 g/dL (1.3-4.6); Glucose 120 mg/dL (65-115); Osmolality Calculated 293 mOsm/kg (285-295); Potassium 4.1 mmol/L (3.5-5.1); Sodium 141 mmol/L (136-145); Total Bilirubin 0.2 mg/dL (0.15-1.2); Total Protein 5.7 g/dL (6.6-8.7)
[2021-03-18 14:00] VITALS: BP 132/74; PULSE 80; RESP 20; TEMP 36.7; O2SAT 100
[2021-03-18 14:27] VITALS: BP 132/74; PULSE 80; RESP 20; TEMP 36.7; O2SAT 100
== END 2021-03-18 12:15 | disposition home health service (06) ==
LOC: OBGYN 11:01
PROVIDERS: Admitting Provider Obstetrics & Gynecology; PCP Family Medicine; Visit Provider Obstetrics & Gynecology
PROC: (CPT 57120; principal; 2021-03-17 08:40)
PROC: (CPT 57288; 2021-03-17 08:40)
DX: N81.4 Uterovaginal prolapse, unspecified (principal); G89.4 Chronic pain syndrome; Z86.73 Personal history of transient ischemic attack (TIA), and cerebral infarction without residual deficits; I25.10 Atherosclerotic heart disease of native coronary artery without angina pectoris; Z95.5 Presence of coronary angioplasty implant and graft; I10 Essential (primary) hypertension; E11.9 Type 2 diabetes mellitus without complications; Z79.4 Long term (current) use of insulin; E78.5 Hyperlipidemia, unspecified; F41.9 Anxiety disorder, unspecified
CPT/HCPCS: 57120; 36415; 36416; 80053; 81003; 82962; 85014; 85018; 85025; 85027; 86850; 86900; 86920; 93005; 96372; C1713; G0378; J0690; J1650; J1815; J1885; J1940; J2405; J2704; J2710; J3010; J3490; J7030; J7040

== ENCOUNTER → 2021-08-18 14:28 | Outpatient (BNVA) | payer MEDICARE, MEDICAID, SELFPAY | PROVIDERS: PCP Family Medicine; Visit Provider Family Medicine | DX: I27.0 Primary pulmonary hypertension (principal); Z86.73 Personal history of transient ischemic attack (TIA), and cerebral infarction without residual deficits; E11.42 Type 2 diabetes mellitus with diabetic polyneuropathy; Z79.4 Long term (current) use of insulin; I10 Essential (primary) hypertension; E11.9 Type 2 diabetes mellitus without complications; I63.9 Cerebral infarction, unspecified; R07.9 Chest pain, unspecified; I50.30 Unspecified diastolic (congestive) heart failure; E78.5 Hyperlipidemia, unspecified; F06.8 Other specified mental disorders due to known physiological condition; I25.10 Atherosclerotic heart disease of native coronary artery without angina pectoris; F41.1 Generalized anxiety disorder; R51.9 Headache, unspecified | CPT/HCPCS: 83036 ==

== ENCOUNTER 2021-12-19 19:05 | Inpatient (IN) | payer MEDICARE, MEDICAID, SELFPAY ==
--- NOTE | 2021-12-19 20:12 | XRR_ITS ---
PROCEDURE INFORMATION: Exam: XR Left Foot Exam date and time: 12/19/2021 8:26 PM Age: 71 years old Clinical indication: Other: Infection; Additional info: Left foot infection TECHNIQUE: Imaging protocol: Radiologic exam of the Left foot. Views: 3 or more views. COMPARISON: No relevant prior studies available. FINDINGS: Bones/joints: Bones are diffusely osteopenic. Alignment is normal. No acute fracture. There is moderate interphalangeal arthritis in the toes diffusely. The the distal end of the proximal 2nd phalanx and middle 2nd phalanx are irregular and there is multifocal osseous lucency. Soft tissues: Vascular calcification is present. The there is irregular atrophy of the soft tissues in the 2nd toe. XR/XR foot LT min 3V* [id number] IMPRESSION: 1. Possible osteomyelitis and/or fracture in the 2nd toe. 2. Osteopenia.
--- NOTE | 2021-12-19 20:16 | P.CONIM_ITS ---
Providers/Reason For Consult Consulting Physician/Specialty*: Podiatry Reason for Consult*: Left foot second toe wet gangrene Attending Physician: Alex Roberts DPM Primary Care Provider: Buck Herbert MD History of Present Illness History of Present Illness Olga Suresh is a 71 year old female who presents to the hospital today for admission and IV antibiotics and further work-up for left foot second toe gangrene. According the patient few days ago her nail fell off of her left second toe after she stubbed it. She states that her toe became increasingly more discolored until the point that it turned black. She states that since the incident she has not been feeling well. She endorses feelings of general malaise. She has never had anything like this before. She does have a history of type 2 diabetes. She states that she has seen a standpipe tender in the past but it has been many years. Patient states that she has not tried anything to alleviate the progression of the gangrene. She went into [facility] today and was transferred here for admission for IV antibiotics and further work-up by podiatry. She denies any history of chronic wounds. No history of amputation up to this point. Denies any other pedal complaints at this time. Review of Systems General: Reports: 10 or more systems reviewed and unremarkable except in HPI and below Const: Reports: fever(s) and malaise Card: Denies: chest pain or edema Resp: Denies: dyspnea GI: Reports: nausea; Denies: abdominal pain or vomiting Musc: Reports: extremity pain Skin/Breast: Reports: skin pain, skin tenderness, skin swelling, sores, non-healing lesions and changes in skin color Medications/Allergies Home Medications Medication Instructions Recorded Confirmed Last Taken Type lancets 30 gauge (OneTouch Delica #100 ea 12/20/19 10/14/21 Unknown Rx Lancets) aspirin 81 mg tablet,delayed See Rx Instructions .Route 08/18/21 10/14/21 Unknown Rx release .COMPLEX #90 tabs clopidogrel 75 mg tablet 75 mg PO DAILY 90 days #90 tabs 08/18/21 10/14/21 Unknown Rx docusate sodium 100 mg capsule 100 mg PO BID #60 caps 08/18/21 10/14/21 Unknown Rx (Colace) fluticasone propionate 220 2 puff inhalation QID PRN 08/18/21 10/14/21 Unknown Rx mcg/actuation HFA aerosol inhaler Shortness Of Breath 30 days #12 (Flovent HFA) grams hydralazine 25 mg tablet 25 mg PO TID 90 days #270 tabs 08/18/21 10/14/21 Unknown Rx insulin glargine 100 unit/mL (3 45 unit (0.45 mL) SUBCUT DAILY #15 08/18/21 10/14/21 Unknown Rx mL) subcutaneous pen (Lantus mL Solostar U-100 Insulin) losartan 25 mg tablet 25 mg PO DAILY 90 days #90 tabs 08/18/21 10/14/21 Unknown Rx melatonin 5 mg capsule 5 mg PO .at bedtime 90 days #90 08/18/21 10/14/21 Unknown Rx caps rosuvastatin 5 mg tablet (Crestor) 5 mg PO DAILY 90 days #90 tabs 08/18/21 10/14/21 Unknown Rx alendronate 70 mg tablet See Rx Instructions .Route 09/07/21 10/14/21 Unknown Rx .COMPLEX #12 tabs ferrous sulfate 325 mg (65 mg 325 mg PO DAILY #100 tabs 10/26/21 Unknown Rx iron) tablet (FeroSul) furosemide 40 mg tablet (Lasix) 40 mg PO DAILY 90 days #90 tabs 10/26/21 Un known Rx gabapentin 300 mg capsule 600 mg PO BID 90 days #360 caps 10/26/21 Unknown Rx hydroxyzine HCl 25 mg tablet 25 mg PO DAILY PRN anxiety 30 days 10/26/21 Unknown Rx #30 tabs potassium chloride 20 mEq 20 meq PO DAILY 90 days #90 tabs 10/26/21 Unknown Rx tablet,extended release(part/cryst) (Klor-Con M) nitroglycerin 0.4 mg sublingual See Rx Instructions .Route 11/09/21 Unknown Rx tablet .COMPLEX #30 tabs acetaminophen 325 mg capsule 325 mg PO Q4H PRN fever or pain 11/10/21 Unknown Rx #60 caps insulin aspart U-100 100 unit/mL See Rx Instructions SUBCUT TID #15 11/10/21 Unknown Rx (3 mL) subcutaneous pen (Novolog mL Flexpen U-100 Insulin aspart) pen needle, diabetic 31 gauge x ##100 11/10/21 Unknown Rx 3/16 (Comfort EZ Pen [place]) furosemide 40 mg tablet (Lasix) 40 mg PO DAILY 90 days #90 tabs 11/26/21 Unknown Rx Allergies Allergy/AdvReac Type Severity Reaction Status Date / Time simvastatin Allergy leg cramps Verified 10/14/21 13:58 PFSH Acute PFSH: Medical History Aftercare following surgery of the genitourinary system CAD (coronary artery disease) LAD stent 2004 & 2008, last mibi stress test 02/12 was negative for ischemia but showed scarring. Chronic pain syndrome Cough Dyslipidemia Enrolled in chronic care management Generalized anxiety disorder History of TIA (transient ischemic attack) and stroke Hypertension Type 2 diabetes mellitus (~07/02/19) Vaginal prolapse Surgical History H/O heart artery stent History of appendectomy History of colpocleisis 03/17/2021- colpocleisis Lefort procedure, performed by Dr. Adler at [facility] History of tubal ligation Family History Father CAD (coronary artery disease) Lung disease Sister CAD (coronary artery disease) Cancer Chronic kidney disease (CKD) Diabetes Breast cancer onset unknown Colon cancer age onset unknown Brother CAD (coronary artery disease) Cancer Diabetes Hypertension Hyperlipidemia Colon cancer age onset unknown Mother Stroke Thyroid condition Other Heart disease Denies family history of Ovarian cancer Clotting disorder Dementia Suicide Anesthesia complication Bleeding disorder Uterine cancer Social History Smoking and tobacco status: never smoked Alcohol intake: never Marital status: / Current gender identity: Female Physical Exam Narrative: GENERAL: A&O x 3 VASCULAR: DP/PT pulses palpable 1/4 to left lower extremity and audible on handheld Doppler. Biphasic DP/biphasic PT. Delayed capillary refill to distal digits. DERMATOLOGICAL: Left foot second digit circumferentially unstable eschar to level of the metatarsophalangeal joint with erythema extending proximally to the level of the second and third metatarsal neck. Erythema present to medial aspect of third digit at the level of the metatarsophalangeal joint. Wet gangrene of second digit is malodorous with light serous drainage. No appreciable deep space abscess on exam. MUSCULOSKELETAL: Tenderness with palpation of left foot second digit gangrene. Bilateral rigid hammertoe contractures of lesser digits. No other gross musculoskeletal deformities noted NEUROLOGICAL: Neurological sensation to the affected foot and ankle is present through L4-S1 dermatomes with no hyper/hypoesthesias, negative Tinel or Valleix's sign A&P Assessment and plan (1) Diabetic wet gangrene of the foot: (2) Cellulitis: (3) Type 2 diabetes mellitus: Qualifiers: Diabetes mellitus technician terminal and repeater insulin use: with retirement use Diabetes mellitus complication status: with neurologic complications Diabetes mellitus complication detail: with polyneuropathy Qualified Code(s): E11.42 - Type 2 diabetes mellitus with diabetic polyneuropathy; Z79.4 - FDC (current) use of insulin (4) CAD (coronary artery disease): Qualifiers: Coronary Disease-Associated Artery/Lesion type: [place] artery [place] vs. transplanted heart: [place] heart Associated angina: angina presence unspecified Qualified Code(s): I25.10 - Atherosclerotic heart disease of [place] coronary artery without angina pectoris Plan -NPO at midnight for surgery tomorrow 12/20/2021 for left foot second digit amputation -IV antibiotics--Vanco/Zosyn--will adjust pending C&S -Left foot second digit cultures taken at bedside and pending -Dressed with Betadine, dry sterile dressing -Three-view x-rays left foot ordered to assess for osteomyelitis or soft tissue emphysema, pending -Plan will be for amputation of left foot second digit for infection control. Patient has biphasic waveform pulses to DP and PT and should have adequate blood flow to heal second digit amputation. Plan will be for likely discharge in coming days on oral antibiotics pending culture and sensitivity results. 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 transplanted heart: [place] heart Associated angina: angina presence unspecified
--- NOTE | 2021-12-19 20:19 | PM.HP ---
Providers/Chief Complaint Admitting Physician: Alex Roberts DPM Primary Care Provider: Buck Herbert MD Chief Complaint: Direct admit from [facility] History of Present Illness Olga Suresh is a 71 year old female with a past medical history of CVA, history of coronary artery disease on aspirin Plavix, insulin-dependent type 2 diabetes mellitus, dyslipidemia, hypertension, who presents to [facility] for complaints of right lower extremity second digit, gangrene. She tells me that a few days ago she stubbed her second digit, the nail fell off. Since then has become gangrenous, black, now is foul-smelling. She also has erythema extending to the forefoot, no fevers, chills, no chest pain, no shortness of breath. She was transferred to [facility] for surgical intervention, podiatry is at bedside Review of Systems Const: Denies: fever(s) Resp: Denies: dyspnea Medications/Allergies Home Medications Medication Instructions Recorded Confirmed Last Taken Type lancets 30 gauge (OneTouch Delica #100 ea 12/20/19 10/14/21 Unknown Rx Lancets) aspirin 81 mg tablet,delayed See Rx Instructions .Route 08/18/21 10/14/21 Unknown Rx release .COMPLEX #90 tabs clopidogrel 75 mg tablet 75 mg PO DAILY 90 days #90 tabs 08/18/21 10/14/21 Unknown Rx docusate sodium 100 mg capsule 100 mg PO BID #60 caps 08/18/21 10/14/21 Unknown Rx (Colace) fluticasone propionate 220 2 puff inhalation QID PRN 08/18/21 10/14/21 Unknown Rx mcg/actuation HFA aerosol inhaler Shortness Of Breath 30 days #12 (Flovent HFA) grams hydralazine 25 mg tablet 25 mg PO TID 90 days #270 tabs 08/18/21 10/14/21 Unknown Rx insulin glargine 100 unit/mL (3 45 unit (0.45 mL) SUBCUT DAILY #15 08/18/21 10/14/21 Unknown Rx mL) subcutaneous pen (Lantus mL Solostar U-100 Insulin) losartan 25 mg tablet 25 mg PO DAILY 90 days #90 tabs 08/18/21 10/14/21 Unknown Rx melatonin 5 mg capsule 5 mg PO .at bedtime 90 days #90 08/18/21 10/14/21 Unknown Rx caps rosuvastatin 5 mg tablet (Crestor) 5 mg PO DAILY 90 days #90 tabs 08/18/21 10/14/21 Unknown Rx alendronate 70 mg tablet See Rx Instructions .Route 09/07/21 10/14/21 Unknown Rx .COMPLEX #12 tabs ferrous sulfate 325 mg (65 mg 325 mg PO DAILY #100 tabs 10/26/21 Unknown Rx iron) tablet (FeroSul) furosemide 40 mg tablet (Lasix) 40 mg PO DAILY 90 days #90 tabs 10/26/21 Unknown Rx gabapentin 300 mg capsule 600 mg PO BID 90 days #360 caps 10/26/21 Unknown Rx hydroxyzine HCl 25 mg tablet 25 mg PO DAILY PRN anxiety 30 days 10/26/21 Unknown Rx #30 tabs potassium chloride 20 mEq 20 meq PO DAILY 90 days #90 tabs 10/26/21 Unknown Rx tablet,extended release(part/cryst) (Klor-Con M) nitroglycerin 0.4 mg sublingual See Rx Instructions .Route 11/09/21 Unknown Rx tablet .COMPLEX #30 tabs acetaminophen 325 mg capsule 325 mg PO Q4H PRN fever or pain 11/10/21 Unknown Rx #60 caps insulin aspart U-100 100 unit/mL See Rx Instructions SUBCUT TID #15 11/10/21 Unknown Rx (3 mL) subcutaneous pen (Novolog mL Flexpen U-100 Insulin aspart) pen needle, diabetic 31 gauge x ##100 11/10/21 Unknown Rx 3/16 (Comfort EZ Pen [place]) furosemide 40 mg tablet (Lasix) 40 mg PO DAILY 90 days #90 tabs 11/26/21 Unknown Rx Allergies Allergy/AdvReac Type Severity Reaction Status Date / Time simvastatin Allergy leg cramps Verified 10/14/21 13:58 PFSH Acute PFSH: Medical History Aftercare following surgery of the genitourinary system CAD (coronary artery disease) LAD stent 2004 & 2008, last mibi stress test 02/12 was negative for ischemia but showed scarring. Chronic pain syndrome Cough Dyslipidemia Enrolled in chronic care management Generalized anxiety disorder History of TIA (transient ischemic attack) and stroke Hypertension Type 2 diabetes mellitus (~07/02/19) Vaginal prolapse Surgical History H/O heart artery stent History of appendectomy History of colpocleisis 03/17/2021- colpocleisis Lefort procedure, performed by Dr. Adler at [facility] History of tubal ligation Family History Father CAD (coronary artery disease) Lung disease Sister CAD (coronary artery disease) Cancer Chronic kidney disease (CKD) Diabetes Breast cancer onset unknown Colon cancer age onset unknown Brother CAD (coronary artery disease) Cancer Diabetes Hypertension Hyperlipidemia Colon cancer age onset unknown Mother Stroke Thyroid condition Other Heart disease Denies family history of Ovarian cancer Clotting disorder Dementia Suicide Anesthesia complication Bleeding disorder Uterine cancer Social History Smoking and tobacco status: never smoked Alcohol intake: never Marital status: / Current gender identity: Female Physical Exam Const: COMMON NORMALS: no acute distress and patient oriented x3 HENMT: COMMON NORMALS: normocephalic HEAD & SCALP: normocephalic Neck/C-Spine: COMMON NORMALS: no JVD Resp: COMMON NORMALS: normal respiratory effort, No retractions, No use of accessory muscles and clear to auscultation bilaterally AUSCULTATION: clear to auscultation bilaterally Cardio: COMMON NORMALS: no JVD, regular rate, regular rhythm, S1 normal heart sound present and S2 normal heart sound present RATE: regular rate RHYTHM: regular rhythm HEART SOUNDS: S1 normal heart sound present and S2 normal heart sound present GI: COMMON NORMALS: Normal to inspection, nondistended, normoactive bowel sounds present, Soft to palpation, non-tender and no bruits PALPATION: Yes Soft to palpation and Yes No hepatosplenomegaly present Extremity: COMMON NORMALS: no pedal edema NARRATIVE EXTREMITY EXAM: At the baseRight foot, second digit, gangrene of second digit, wet gangrene, with erythema at the base extending to the forefoot Neuro: COMMON NORMALS: patient oriented x3, CN's II-XII intact bilaterally and moves all extremities Psych: COMMON NORMALS: mental status grossly normal A&P Assessment and plan (1) Dyslipidemia: (2) Hypertension: Qualifiers: Hypertension type: essential hypertension Qualified Code(s): I10 - Essential (primary) hypertension (3) CAD (coronary artery disease): Qualifiers: Coronary Disease-Associated Artery/Lesion type: [place] artery [place] vs. transplanted heart: [place] heart Associated angina: angina presence unspecified Qualified Code(s): I25.10 - Atherosclerotic heart disease of [place] coronary artery without angina pectoris (4) Type 2 diabetes mellitus: Qualifiers: Diabetes mellitus penitentiary insulin use: with exterminator helper use Diabetes mellitus complication status: with neurologic complications Diabetes mellitus complication detail: with polyneuropathy Qualified Code(s): E11.42 - Type 2 diabetes mellitus with diabetic polyneuropathy; Z79.4 - long-term (current) use of insulin (5) Generalized anxiety disorder: (6) Diabetic wet gangrene of the foot: Plan Diabetic foot, with well gangrene -Podiatry has been consulted, n.p.o. 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 transplanted heart: [place] heart Associated angina: angina presence unspecified Type 2 diabetes mellitus E11.42; Z79.4 Diabetes mellitus penitentiary insulin use: with penitentiary use Diabetes mellitus complication status: with neurologic complications Diabetes mellitus complication detail: with polyneuropathy Generalized anxiety disorder F41.1 Diabetic wet gangrene of the foot E11.52
[2021-12-19 20:58] VITALS: BP 167/72; PULSE 95; RESP 18; TEMP 36.9; O2SAT 99
[2021-12-19 21:06] VITALS: RESP 17
[2021-12-19] MEDS: hyDRALAzine 25 mg Tablet PO (21:06)
[2021-12-19] MEDS: aspirin 81 mg EC Tablet PO (21:06)
[2021-12-19] MEDS: morphine 4 mg/mL SDV 1 mL 1 MG IVP (21:06)
[2021-12-19] MEDS: enoxaparin 40 mg/0.4 mL Syringe SUBCUT (21:06)
[2021-12-19] MEDS: pantoprazole 40 mg SDV IVP (21:06)
[2021-12-19 21:11] LABS: Basophils # 0.1 10^3/uL (0.0-0.1); Basophils % 0.4 %; Eosinophils # 0.1 10^3/uL (0.0-0.8); Eosinophils % 0.4 %; Hematocrit 31.1 % (37.0-47.0); Hemoglobin 10.1 g/dL (11.5-15.3); Lymphocytes # 1.7 10^3/uL (0.8-4.8); Lymphocytes % 12.5 %; Mean Corpuscular HGB Conc 32.5 g/dL (30.0-36.0); Mean Corpuscular Hemoglobin 29.3 pg (28.0-34.0); Mean Corpuscular Volume 90.1 fl (81-99); Mean Platelet Volume 10.1 fL (7.4-10.4); Monocytes # 1.1 10^3/uL (0.2-0.9); Monocytes % 8.2 %; Neutrophils # 10.42 10^3/uL (1.8-7.7); Neutrophils % 78.1 %; Nucleated Red Blood Cells % 0 %; Platelet Count 364 10^3/cmm (130-400); Red Blood Count 3.45 10^6/uL (4.1-5.3); Red Cell Distribution Width 13.1 % (12.1-15.1); White Blood Count 13.4 10^3/uL (4.0-10.0)
[2021-12-19 21:13] VITALS: BMI 25.9
[2021-12-19] MEDS: dextrose 5%-sod chloride 0.9% 1,000 ML 50 ML IV (21:29)
[2021-12-19 21:33] LABS: Glucose Point of Care 96 mg/dL (70-110)
[2021-12-19 21:35] LABS: Magnesium 1.9 mg/dL (1.7-2.3)
[2021-12-19 21:36] LABS: Erythrocyte Sedimentation Rate 41 mm/hr (0-15)
[2021-12-19 21:44] LABS: Procalcitonin 0.15 ng/mL (0-0.5); Thyroid Stimulating Hormone 0.09 uIU/mL (0.27-4.20)
[2021-12-19 21:56] LABS: Alanine Aminotransferase 9 U/L (0-33); Albumin Level 3.4 g/dL (3.5-5.2); Alkaline Phosphatase 97 U/L (35-105); Anion Gap 18.7 (5-19); Aspartate Amino Transferase 15 U/L (0-32); Blood Urea Nitrogen 13 mg/dL (8-23); C Reactive Protein 45.6 mg/L (0.0-4.9); Carbon Dioxide 21 mmol/L (22-29); Chloride 94 mmol/L (98-107); Globulin 3.9 g/dL (1.3-4.6); Glucose 77 mg/dL (65-115); Osmolality Calculated 269 mOsm/kg (285-295); Potassium 3.7 mmol/L (3.5-5.1); Sodium 130 mmol/L (136-145); Total Bilirubin 0.4 mg/dL (0.15-1.2); Total Protein 7.3 g/dL (6.6-8.7)
[2021-12-19 21:58] LABS: Estmated Average Glucose 105; Hemoglobin A1C 5.3 % (4.0-6.0)
--- NOTE | 2021-12-19 22:32 | PC.PHAR ---
Pharmacokinetic dosing service Date: 12/19/21 Time: 2231 Objective: Patient: Olga Suresh Floor: 257-1 Age: 71 yo Serum creatinine: 1.0 mg/dL Height: 63.0 Inches Weight (kg): 66.315 Diagnosis: Relevant medical/social history: Cultures and sensitivities: Other labs: Assessment: IBW (kg): 52.40 Dosing wt(kg): 66.315 Estimated Creatinine clearance (ml/min): 41.4 CRCL method: Cockcroft and Gault using ibw(default). Drug selected: Vancomycin Loading dose (mg): 0 Vd (liters): 59.7 (factor used: 0.9 L/kg) Adarsh (hr-1): 0.039 Half life (hrs): 17.77 Recommended dose: 1250 mg Interval: 24 hrs Infusion time (hrs): 1.5 Predicted peak (mcg/mL): 33.5 Predicted trough (mcg/mL): 13.93 Total body weight is being used for vancomycin dosing. Renal function is stable [ ] /unstable [ ] Recommendations: Give Vancomycin 1250 mg q 24 hrs with an expected Cpeak of 33.5 mcg/ml and an expected Ctrough of 13.93 mcg/ml Renal dosing of other antibiotics (review renal dosing of other medications and list guidelines here): Thank you for the consult, will continue to follow. Signature: [facility]
[2021-12-19] MEDS: vancomycin 1,250 MG/250 ML PIGGYBACK 250 MG IV (23:34)
[2021-12-19] MEDS: acetaminophen 325 mg Tablet 650 MG PO (23:39)
[2021-12-20] VITALS (24 sets, daily range): BP systolic 98–131; BP diastolic 42–69; PULSE 64–95; RESP 10–18; TEMP 36.2–37.3; O2SAT 97–100
[2021-12-20] MEDS: piperacillin-tazobactam 3.375 GM in sodium chloride 0.9% (plus) 50 ML IV ×4 (01:00→23:59)
[2021-12-20] MEDS: dextrose 50% syringe 50 mL 25 ML IVP (06:31)
[2021-12-20 06:49] LABS: Glucose Point of Care 67 mg/dL (70-110)
[2021-12-20 06:49] LABS: Glucose Point of Care 173 mg/dL (70-110)
--- NOTE | 2021-12-20 07:17 | PM.PN ---
Subjective Subjective: Patient seen at bedside this morning. She is resting comfortably. Does endorse some chills but states overall she is feeling better after receiving the antibiotics. She is currently n.p.o. for today's procedure at 12:00 noon. No overnight events. Dressing applied yesterday evening remains clean, dry and intact with no strikethrough. Vitals/I&O/Wt Last Vital Signs Temp 98.1 F 12/20/21 05:08 Pulse 65 12/20/21 05:08 Resp 18 12/20/21 05:08 BP 103/50 12/20/21 05:08 Pulse Ox 98 12/20/21 05:08 O2 Del Method 12/20/21 00:24 12/19/21 12/20/21 12/20/21 22:59 06:59 14:59 Intake Total 300 / 300 Balance 300 / 300 Weight last 48 hrs Weight 146 lb 3.2 oz Physical Exam Narrative: GENERAL: A&O x 3 VASCULAR: DP/PT pulses palpable 1/4 to left lower extremity and audible on handheld Doppler. Biphasic DP/biphasic PT. Delayed capillary refill to distal digits. DERMATOLOGICAL: Left foot second digit circumferentially unstable eschar to level of the metatarsophalangeal joint with erythema extending proximally to the level of the second and third metatarsal neck. Erythema present to medial aspect of third digit at the level of the metatarsophalangeal joint. Wet gangrene of second digit is malodorous with light serous drainage. No appreciable deep space abscess on exam. MUSCULOSKELETAL: Tenderness with palpation of left foot second digit gangrene. Bilateral rigid hammertoe contractures of lesser digits. No other gross musculoskeletal deformities noted NEUROLOGICAL: Neurological sensation to the affected foot and ankle is present through L4-S1 dermatomes with no hyper/hypoesthesias, negative Tinel or Valleix's sign IMAGIN views of the left foot taken at bedside portable were personally interpreted by me which show increase of tissue density around the left foot second digit at the level of the proximal interphalangeal joint. No subcutaneous emphysema noted. Decreased off tissue density distal aspect of second digit correlating clinically with gangrene. No spencer erosive changes to bone cortices. Diffuse osteopenia. Data : 12/19/21 20:51 12/19/21 20:51 Micro: Microbiology 12/20/21 05:21 Blood Culture - Preliminary Blood SPECIMEN COLLECTED 12/19/21 20:51 Blood Culture - Preliminary Blood SPECIMEN COLLECTED A&P Assessment and plan (1) Diabetic wet gangrene of the foot: (2) Cellulitis: (3) Type 2 diabetes mellitus: Qualifiers: Diabetes mellitus skilled nursing insulin use: with skilled nursing use Diabetes mellitus complication status: with neurologic complications Diabetes mellitus complication detail: with polyneuropathy Qualified Code(s): E11.42 - Type 2 diabetes mellitus with diabetic polyneuropathy; Z79.4 - shelter (current) use of insulin (4) CAD (coronary artery disease): Qualifiers: Coronary Disease-Associated Artery/Lesion type: [place] artery [place] vs. transplanted heart: [place] heart Associated angina: angina presence unspecified Qualified Code(s): I25.10 - Atherosclerotic heart disease of [place] coronary artery without angina pectoris (5) PAD (peripheral artery disease): Plan -NPO for surgery today 12/20/2021 for left foot second digit amputation -IV antibiotics--Vanco/Zosyn--will adjust pending C&S -Left foot second digit cultures taken at bedside still pending -Dressed with Betadine, dry sterile dressing -Plan will be for amputation of left foot second digit for infection control, today. Patient has biphasic waveform pulses to DP and PT and should have adequate blood flow to heal second digit amputation. Plan will be for likely discharge in coming days on oral antibiotics pending culture and sensitivity results. 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 transplanted heart: [place] heart Associated angina: angina presence unspecified PAD (peripheral artery disease) I73.9
--- NOTE | 2021-12-20 07:49 | PC.NURSE ---
Received in report 0600 bg was 67. Pt was given 1/2 amp D50 and started on D5w @50/hr per protocol of NPO pt. recheck in 15min BG 178. Pt is alert and oriented at bedside report.
--- NOTE | 2021-12-20 08:19 | PC.NURSE ---
Spoke with Dr. Johnson to report hypogylcemia overnight and bg level at recheck per protocol. hold insulin and lantus as pt is going to surgery
[2021-12-20] MEDS: potassium chloride ER 20 mEq Tablet PO (08:38)
[2021-12-20] MEDS: ferrous sulfate EC 325 mg Tablet PO (08:38)
[2021-12-20] MEDS: losartan 50 mg Tablet 25 MG PO (08:38)
[2021-12-20] MEDS: gabapentin 300 mg Capsule 600 MG PO ×2 (08:38→17:58)
[2021-12-20] MEDS: atorvastatin 40 mg Tablet 20 MG PO (08:39)
[2021-12-20] MEDS: FUROsemide 40 mg Tablet PO (08:39)
[2021-12-20] MEDS: aspirin 81 mg EC Tablet PO (08:40)
[2021-12-20] MEDS: hyDRALAzine 25 mg Tablet PO ×3 (08:48→20:41)
--- NOTE | 2021-12-20 11:06 | P.PN_ITS ---
Subjective Subjective: Patient was complaining of mild soreness in her left foot Planning for amputation today Continue IV antibiotics She is n.p.o. Her blood sugar was low she has been given 1 amp of D50 Vitals/I&O/Wt Last Vital Signs Temp 98.5 F 12/20/21 08:00 Pulse 68 12/20/21 08:00 Resp 16 12/20/21 08:00 BP 123/64 12/20/21 10:00 Pulse Ox 98 12/20/21 08:00 O2 Del Method 12/20/21 08:00 12/19/21 12/20/21 12/20/21 22:59 06:59 14:59 Intake Total 300 / 300 Balance 300 / 300 Weight last 48 hrs Weight 66.315 kg Physical Exam Narrative: Awake and alert Looks euvolemic Abdomen soft Her left foot is wrapped in clean dressing Complaining of soreness Family at the bedside Currently on room air Awake and alert S1, S2 Currently doing well on room air Pleasant and cooperative during my evaluation Data : 12/19/21 20:51 12/19/21 20:51 Micro: Microbiology 12/20/21 05:21 Blood Culture - Preliminary Blood SPECIMEN COLLECTED 12/19/21 20:51 Blood Culture - Preliminary Blood SPECIMEN COLLECTED A&P Assessment and plan (1) PAD (peripheral artery disease): (2) Cellulitis: (3) Diabetic wet gangrene of the foot: Plan Wet gangrene left second toe Concern for osteomyelitis ESR is not extremely high Procalcitonin unremarkable Her hemoglobin A1c is 4.3 Hypoglycemia corrected this morning Continue IV antibiotics With source control we might be able to switch to p.o. antibiotics at the time of discharge we will follow-up with culture sensitivity report Onto her discharge she will continue IV antibiotics She can eat after her surgery today Will start DVT prophylaxis 6 to 8 hours after the procedure DNR/DNI She can have cardiac consistent carb diet after the procedure Opioids along bowel regimen Check free T4 her TSH is suppressed Attestations Medical Necessity Statement*: Surgery today Time Spent in Patient Care: 35 Coding Level of Care Code Acute Finishing Manager for [facility] Diagnoses PAD (peripheral artery disease) I73.9 Cellulitis L03.90 Diabetic wet gangrene of the foot E11.52
--- NOTE | 2021-12-20 11:09 | PC.PHAR ---
pt states she takes care of her own medications-pts daughter nieves states she use to help the pt but states for the last couple months the pt has started taking care of her own meds again-medications entered are medications that ext med history shows has been filled recently and what the pt states she takes
--- NOTE | 2021-12-20 11:29 | PC.CHAP ---
Pastoral Care Encounter/Spiritual Assessment Type of Contact [] Declined storehouse clerk visit [] Patient/Family/Request visit [] Outpatient visit [] Follow-up visit [] Physician referral [] Code/Alert [x] Routine visit [] Staff referral [] Actively dying [] Patient sleeping [] Family support [] [] Out of room [] Palliative care [] [] Receiving care in room [] Pre-surgical visit [] Trauma [] Long length of stay [] ICU visit [] Other: Relational/Emotional Strength [x] Patient feels connected with others/family/visitors/staff [] Distress [] Loneliness/isolation [] Abandonment Spirituality of Patient [x] Person of Norma [] Attends Sikhism of their Norma [x] Believes in Prayer [] Reads Bible or Episcopal materials [] There are Spiritual issues to be addressed Crew Chief Interventions [] Prayer [] Active listening [] Non-anxious presence [] Spiritual/emotional support [] Crisis/trauma care [] Spiritual counseling [] Bereavement support [] Provided bereavement packet [] Provided Bible/devotional materials [] Provided toy/stuffed animal, coloring book to patient or family member [] Provided Communion [] Anointing/[place] [] Salvation [x] Completed spiritual assessment [] Other: Impact on Illness or Injury [] Angry [] Fearful [] Anxious [] Often cries [] Exhaustion [] Unable to work [] Unable to attend mormonism [] Unable to walk/stand [] Unable to read [] Unable to drive [] Unable to eat/drink [] Unable to sleep [] Unable to be with family [] Patient intubated [] Other: Summary Time spent with patient 10 min
[2021-12-20 11:36] LABS: Glucose Point of Care 70 mg/dL (70-110)
[2021-12-20] MEDS: sodium chloride 0.9% 1,000 ML 30 ML IV (11:49)
--- NOTE | 2021-12-20 11:55 | P.ANESASSM_ITS ---
Pre-Anesthetic Assessment Height/Weight: Height 1.6 m Weight 66.315 kg Temp Pulse Resp BP Pulse Ox O2 Del Method 98.0 F 83 16 131/66 99 12/20/21 11:18 12/20/21 11:18 12/20/21 11:18 12/20/21 11:18 12/20/21 11:18 12/20/21 11:18 Preop Diagnosis: Uterine prolapse, stress incontinence Operation Date: 12/20/21 12:00 Proposed Procedures p Amputation Toe/s- Left foot 2nd toe amp w/ removal of nonviable tissue and bone(Left) - Alex Roberts DPM Familial anesthetic complications: none Was Beta Toni taken within 24 hours: N/A Was Clonidine taken within 24 hours: N/A Last intake: Intake Last Liquid Date 12/19/21 Last Liquid Time 23:55 Last Solid Date 12/19/21 Last Solid Time 18:00 Last Intake: 00:00 (sip with meds this AM reported by family member) Social No alcohol and No tobacco Exam alert and oriented x 3 Airway Submandibular: within normal limits Cervical ROM: within normal limits Mallampati: Class II Dentition: false History/ROS No significant history except as noted Pulmonary Asthma CV/HEM Coronary Artery Disease (last stent placed in 2009) and Hypertension None reported Hepatic None reported GI None reported Metabolic Diabetes Mellitus and Hyperlipidemia [facility] [place] [facility] None reported Neuropsych Cerebrovascular Accident (no residual) Anesthetic Plan ASA status: 3 Anesthesia: Anesthesia Evaluation and MAC Risk of > 500 ml blood loss (7ml/kg in children): No Medications/Allergies Home Medications Medication Instructions Recorded Confirmed Last Taken Type lancets 30 gauge (OneTouch Delica #100 ea 12/20/19 12/20/21 Unknown Rx Lancets) pen needle, diabetic 31 gauge x ##100 11/10/21 12/20/21 Unknown Rx 3/16 (Comfort EZ Pen [place]) alendronate 70 mg tablet 70 mg PO Q7D 12/19/21 12/20/21 Unknown History alprazolam 0.5 mg tablet 0.25 mg PO DAILY PRN Anxiety 12/19/21 12/20/21 Unknown History clopidogrel 75 mg tablet 75 mg PO QPM 12/19/21 12/20/21 Unknown History docusate sodium 100 mg capsule 100 mg PO BID PRN Constipation 12/19/21 12/19/21 Unknown History fluticasone propionate 220 2 puff inhalation QID PRN 12/19/21 12/19/21 Unknown History mcg/actuation HFA aerosol inhaler Shortness Of Breath (Flovent HFA) furosemide 40 mg tablet (Lasix) 40 mg PO DAILY 12/19/21 12/19/21 Unknown History hydralazine 25 mg tablet 25 mg PO TID 12/19/21 12/20/21 Unknown History insulin aspart U-100 100 unit/mL See Rx Instructions .Route .COMPLEX 12/19/21 12/19/21 Unknown History (3 mL) subcutaneous pen (Novolog Flexpen U-100 Insulin aspart) losartan 25 mg tablet 25 mg PO DAILY 12/19/21 12/20/21 Unknown History melatonin 5 mg tablet 2.5 mg PO BEDTIME PRN Insomnia 12/19/21 12/19/21 Unknown History naloxone 4 mg/actuation nasal 1 spray intranasal Q2M PRN Opioid 12/19/21 12/19/21 Unknown History spray (Narcan) Overdose nitroglycerin 0.4 mg sublingual 0.4 mg sublingual Q5M PRN Chest 12/19/21 12/19/21 Unknown History tablet (Nitrostat) Pain sennosides 8.6 mg-docusate sodium 1 tab-cap PO BID PRN Constipation 12/19/21 12/19/21 Unknown History 50 mg tablet (Senna Plus) acetaminophen 325 mg tablet 325 mg PO Q4H PRN Pain 12/20/21 12/20/21 Unknown History (Tylenol) aspirin 81 mg tablet,delayed 81 mg PO QPM 12/20/21 12/20/21 Unknown History release gabapentin 300 mg capsule 600 mg PO BID 12/20/21 12/20/21 Unknown History hydroxyzine HCl 25 mg tablet 25 mg PO DAILY PRN Anxiety 12/20/21 12/20/21 Unknown History insulin glargine 100 unit/mL (3 45 unit SUBCUT BEDTIME 12/20/21 12/20/21 Unknown History mL) subcutaneous pen (Lantus Solostar U-100 Insulin) potassium chloride 20 mEq 20 meq PO QAM 12/20/21 12/20/21 Unknown History tablet,extended release(part/cryst) rosuvastatin 5 mg tablet 5 mg PO DAILY 12/20/21 12/20/21 Unknown History Allergies Allergy/AdvReac Type Severity Reaction Status Date / Time simvastatin Allergy leg cramps Verified 12/20/21 10:52 Current Medications Generic Name Dose Route Start Last Admin Trade Name Donnieq PRN Reason Stop Dose Admin Acetaminophen 650 mg 12/19/21 20:15 12/19/21 23:39 Acetaminophen 325 Mg Tablet PO 650 mg Q6H PRN Administration Mild/Mod Pain Or Temp >/= 101 Aspirin 81 mg 12/19/21 20:15 12/20/21 08:40 Aspirin 81 Mg Ec Tablet PO 81 mg DAILY MAURILIO Administration Atorvastatin Calcium 20 mg 12/20/21 09:00 12/20/21 08:39 Atorvastatin 40 Mg Tablet PO 20 mg DAILY MAURILIO Administration Dextrose 25 ml 12/19/21 20:15 12/20/21 06:31 Dextrose 50% Syringe 50 Ml IVP 25 ml ONCE PRN Administration hypoglycemia protocol Protocol Docusate Sodium 100 mg 12/20/21 09:00 12/20/21 08:49 Docusate Sodium 100 Mg Capsule PO Not Given BID MAURILIO Enoxaparin Sodium 40 mg 12/19/21 20:30 12/19/21 21:06 Enoxaparin 40 Mg/0.4 Ml Syringe SUBCUT 40 mg Q24H MAURILIO Administration Ferrous Sulfate 325 mg 12/20/21 09:00 12/20/21 08:38 Ferrous Sulfate Ec 325 Mg Tablet PO 325 mg DAILY MAURILIO Administration Furosemide 40 mg 12/20/21 09:00 12/20/21 08:39 Furosemide 40 Mg Tablet PO 40 mg DAILY MAURILIO Administration Gabapentin 600 mg 12/20/21 09:00 12/20/21 08:38 Gabapentin 300 Mg Capsule PO 600 mg BID MAURILIO Administration Hydralazine HCl 25 mg 12/19/21 21:00 12/20/21 08:48 Hydralazine 25 Mg Tablet PO 25 mg TID MAURILIO Administration Piperacillin Sod/Tazobactam 50 mls @ 12.5 mls/hr 12/20/21 00:00 12/20/21 08:37 Sod 3.375 gm/ Sodium Chloride IV 12.5 mls/hr Q8H MAURILIO Administration Protocol Dextrose/Sodium Chloride 1,000 mls @ 50 mls/hr 12/19/21 20:15 12/19/21 21:29 Dextrose 5%-Sod Chloride 0.9% IV 50 mls/hr .Q20H MAURILIO Administration Vancomycin/PEG/NADA/Lysine/Water 1,250 mg in 250 mls @ 250 mls/hr 12/19/21 23:00 12/20/21 00:34 Vancocin IV Infused Q24H MAURILIO Infusion Sodium Chloride 1,000 mls @ 30 mls/hr 12/20/21 11:15 12/20/21 11:49 Sodium Chloride 0.9% IV 12/21/21 11:14 30 mls/hr .Q24H MAURILIO Administration Insulin Human Lispro 0 unit 12/20/21 08:00 12/20/21 07:48 Insulin Lispro 100 Unit/1 Ml SUBCUT Not Given TIDWM MAURILIO Protocol Losartan Potassium 25 mg 12/20/21 09:00 12/20/21 08:38 Losartan 50 Mg Tablet PO 25 mg DAILY MAURILIO Administration Morphine Sulfate 1 mg 12/19/21 20:15 12/19/21 21:06 Morphine 4 Mg/Ml Sdv 1 Ml IVP 1 mg Q4H PRN Administration SEVERE PAIN Pantoprazole Sodium 40 mg 12/19/21 20:15 12/19/21 21:06 Pantoprazole 40 Mg Sdv IVP 40 mg Q24H MAURILIO Administration Potassium Chloride 20 meq 12/20/21 09:00 12/20/21 08:38 Potassium Chloride Er 20 Meq Tablet PO 20 meq DAILY MAURILIO Administration PENDING SALE TO [facility] Anesthesia Medical History Aftercare following surgery of the genitourinary system CAD (coronary artery disease) LAD stent 2004 & 2008, last mibi stress test 02/12 was negative for ischemia but showed scarring. Chronic pain syndrome Cough Dyslipidemia Enrolled in chronic care management Generalized anxiety disorder History of TIA (transient ischemic attack) and stroke Hypertension Type 2 diabetes mellitus (~07/02/19) Vaginal prolapse Surgical History H/O heart artery stent History of appendectomy History of colpocleisis 03/17/2021- colpocleisis Lefort procedure, performed by Dr. Adler at [facility] History of tubal ligation Family History Father CAD (coronary artery disease) Lung disease Sister CAD (coronary artery disease) Cancer Chronic kidney disease (CKD) Diabetes Breast cancer onset unknown Colon cancer age onset unknown Brother CAD (coronary artery disease) Cancer Diabetes Hypertension Hyperlipidemia Colon cancer age onset unknown Mother Stroke Thyroid condition Other Heart disease Denies family history of Ovarian cancer Clotting disorder Dementia Suicide Anesthesia complication Bleeding disorder Uterine cancer Social History Smoking and tobacco status: never smoked Alcohol intake: never Marital status: / Current gender identity: Female Data Anesthesia : 12/19/21 20:51 12/19/21 20:51 Short CBC 12/19/21 Range/Units 20:51 WBC 13.4 H (4.0-10.0) 10^3/uL Hgb 10.1 L (11.5-15.3) g/dL Hct 31.1 L (37.0-47.0) % MCV 90.1 (81-99) fl Plt Count 364 (130-400) 10^3/cmm Neut % (Auto) 78.1 % Neut # (Auto) 10.42 H (1.8-7.7) 10^3/uL BMP 12/19/21 20:51 Sodium 130 L Potassium 3.7 Chloride 94 L Carbon Dioxide 21 L BUN 13 Creatinine 1.0 H Glucose 77 Calcium 9.0 Liver Function 12/19/21 Range/Units 20:51 Total Bilirubin 0.4 (0.15-1.2) mg/dL AST 15 (0-32) U/L ALT 9 (0-33) U/L Alkaline Phosphatase 97 (35-105) U/L Albumin 3.4 L (3.5-5.2) g/dL Coags 12/19/21 12/19/21 12/19/21 20:51 20:51 20:51 ESR 41 H PT 15.60 H INR 1.20 C-Reactive Protein 45.6 H Microbiology 12/20/21 05:21 Blood Culture - Preliminary Blood SPECIMEN COLLECTED 12/19/21 20:51 Blood Culture - Preliminary Blood SPECIMEN COLLECTED Cardiac Studies: Echocardiogram Ultrasound 07/27/20 Sestamibi Stress Test (Cardiology) 09/04 Cardiac Event Monitor 07/01/20
--- NOTE | 2021-12-20 11:58 | W.PM.OPSUD ---
Surgery/Procedure H&P Update DATE OF PROCEDURE: December 20, 2021 DATE H&P PERFORMED: 12/19/21 CHANGES TO PREVIOUS DOCUMENTATION: No changes to previous documentation PREOP DIAGNOSIS: Uterine prolapse, stress incontinence PRIMARY INDICATION FOR PROCEDURE: left foot 2nd toe wet gangrene PLANNED PROCEDURE: Operation Date: 12/20/21 12:00 Proposed Procedures p Amputation Toe/s- Left foot 2nd toe amp w/ removal of nonviable tissue and bone(Left) - Alex Roberts DPM
[2021-12-20 13:02] LABS: Glucose Point of Care 77 mg/dL (70-110)
--- NOTE | 2021-12-20 13:18 | PM.OP ---
Operative Report Date of procedure: December 20, 2021 Pre-op diagnosis: Preop Diagnosis left foot second toe wet gangrene Post-op diagnosis: Same Post-op findings: Gangrenous changes of left foot second digit. Remaining tissue at the level of metatarsophalangeal joint healthy and viable with blood flow present no sign of deep space abscess or infection Procedure done: Left foot second digit amputation at the level of metatarsophalangeal joint CPT 03918 Implants: None Specimens removed/disposition: Left foot second toe sent to pathology Pathology: Left foot second toe Surgeon: Dr. Alex Roberts D.P.M. Estimated blood loss: Less than 5 cc No tourniquet used Complications: None Findings: Left foot second toe gangrene. Tissue at the level of the second metatarsophalangeal joint the remainder was noted to be healthy and viable with active bleeding present Brief History: Patient has history of left foot second toe nail trauma which led to progression of wet gangrene Procedure: Patient is a 71-year-old female that has a history of left foot second digit wet gangrene. The extent of the infection warrants left foot second digit amputation. A lengthy discussion regarding the procedure, including risks and complications has been had with the patient. Written and verbal consent have been obtained. All patient questions have been answered to the patient?s satisfaction. No written or verbal guarantees have been given or implied. The patient has been NPO since midnight. The history has been reviewed and the history and physical is current. The signed consent was confirmed and placed in the patient chart. Patient imaging has been reviewed and is consistent with the diagnosis. Under mild sedation, the patient was brought into the operating room and left on the gurney in the supine position. No antibiotics were given as preoperative surgical prophylaxis as the patient is receiving antibiotics [id number] on the floor. IV sedation was then performed by the anesthesia team. The operative extremity was then prepped, scrubbed and draped in the usual fashion. After prep, the following procedure was then performed. Attention was directed to the left foot were a necrotic second toe was visualized with active serous drainage. A skin marker was used to make an elliptical incision circumferentially around the toe. Next a #15 blade was used to make a full-thickness incision along the aforementioned drawn outline. This incision was down to the level of bone. The second toe was grasped with a penetrating towel clamp to help joystick the toe and aid with visualization for dissection. Dissection was carried down to the level of the sec metatarsal phalangeal joint where the second toe was disarticulated. The toe was passed from the operative field be sent to pathology. The tissue at the level of the sec metatarsal phalangeal joint or amputation site was noted to be healthy in nature. No further necrosis was visualized. Active bleeding was visualized at this level as well. There was no tracking undermining or evidence of deep space abscess. The flexor tendon was noted to have degenerative changes with discoloration indicative of necrosis. This was grasped with a rongeur and cut as proximally as possible using a #15 blade. Deep tissue cultures were taken at this point both aerobic and anaerobic and sent to micro for culture and sensitivity. Site was then irrigated with copious muscle sterile saline via cystoscopy tubing. A fresh 15 blade was used to freshen up the subcutaneous tissue for closure. Next attention was directed to closure of the amputation site. This was performed using 3-0 Prolene in simple interrupted fashion. The site was then dressed with Xeroform 4 x 4 gauze Kerlix and Bryant bandage. The patient tolerated the procedure and anesthesia well and without complication. The patient was transported from the operating room to the recovery room with vital signs stable and vascular status intact to all remaining digits of the left foot. The patient was instructed to remain nonweightbearing to the operative extremity, to keep surgical dressing clean, dry and intact. The patient will be transferred back to the floor once anesthesia criteria is met. I will continue to round on and follow the patient in the inpatient setting and provide recommendations to stabilize the patient for discharge. Given the healthy appearance of the remaining soft tissues, it is my recommendation that the patient be discharged on oral antibiotics. Recommend broad-spectrum antibiotics as well as anaerobic coverage for discharge until culture and sensitivity results.
--- NOTE | 2021-12-20 15:39 | ANE.PACU2 ---
Inpatient post-anesthesia follow up: Airway intact: Yes Vital signs: Temperature 97.8 F Pulse Rate 77 Respiratory Rate 18 Blood Pressure 103/60 Pulse Oximetry 98 Oxygen Delivery Me thod Room Air Oxygen Flow Rate 6 Fraction of Inspir ed Oxygen Hydration adequate: Yes Nausea and vomiting: No Pain level: 1 Mental status: Baseline
[2021-12-20] MEDS: morphine 4 mg/mL SDV 1 mL 1 MG IVP (16:31)
[2021-12-20 17:24] LABS: Glucose Point of Care 98 mg/dL (70-110)
[2021-12-20] MEDS: enoxaparin 40 mg/0.4 mL Syringe SUBCUT (19:39)
[2021-12-20] MEDS: pantoprazole 40 mg SDV IVP (19:39)
[2021-12-20 21:11] LABS: Glucose Point of Care 153 mg/dL (70-110)
[2021-12-20] MEDS: vancomycin 1,250 MG/250 ML PIGGYBACK 250 MG IV (22:57)
[2021-12-21] MEDS: dextrose 5%-sod chloride 0.9% 1,000 ML 50 ML IV (01:55)
[2021-12-21 04:00] VITALS: BP 126/74; PULSE 82; RESP 18; TEMP 37.1; O2SAT 98
[2021-12-21 05:16] LABS: Basophils # 0.1 10^3/uL (0.0-0.1); Basophils % 0.5 %; Eosinophils # 0.1 10^3/uL (0.0-0.8); Eosinophils % 1.3 %; Hematocrit 29.3 % (37.0-47.0); Hemoglobin 9.3 g/dL (11.5-15.3); Lymphocytes # 2.3 10^3/uL (0.8-4.8); Lymphocytes % 21.2 %; Mean Corpuscular HGB Conc 31.7 g/dL (30.0-36.0); Mean Corpuscular Hemoglobin 29.2 pg (28.0-34.0); Mean Corpuscular Volume 92.1 fl (81-99); Mean Platelet Volume 10.4 fL (7.4-10.4); Monocytes # 1.2 10^3/uL (0.2-0.9); Monocytes % 10.9 %; Neutrophils # 7.05 10^3/uL (1.8-7.7); Neutrophils % 65.7 %; Nucleated Red Blood Cells % 0 %; Platelet Count 318 10^3/cmm (130-400); Red Blood Count 3.18 10^6/uL (4.1-5.3); Red Cell Distribution Width 13.2 % (12.1-15.1); White Blood Count 10.7 10^3/uL (4.0-10.0)
[2021-12-21 05:41] LABS: Blood Urea Nitrogen 11 mg/dL (8-23); Calcium 8.7 mg/dL (8.5-10.5); Carbon Dioxide 22 mmol/L (22-29); Chloride 102 mmol/L (98-107); Glucose 141 mg/dL (65-115); Magnesium 1.8 mg/dL (1.7-2.3); Osmolality Calculated 282 mOsm/kg (285-295); Sodium 135 mmol/L (136-145)
[2021-12-21 06:54] LABS: Glucose Point of Care 214 mg/dL (70-110)
--- NOTE | 2021-12-21 07:27 | P.PN_ITS ---
Subjective Subjective: Patient seen at bedside this morning. Day 1 status post left foot second digit amputation for wet gangrene. Patient states no overnight events. She is feeling well. Better than when she came to the hospital. States that her pain is well controlled at this point. Denies any fevers, chills, nausea, vomiting, shortness of breath, chest pain. Denies any other pedal complaints this time. Vitals/I&O/Wt Last Vital Signs Temp 98.7 F 12/21/21 04:00 Pulse 82 12/21/21 04:00 Resp 18 12/21/21 04:00 BP 126/74 12/21/21 04:00 Pulse Ox 98 12/21/21 04:00 O2 Del Method 12/21/21 04:00 O2 Flow Rate 6 12/20/21 12:53 12/20/21 12/21/21 12/21/21 22:59 06:59 14:59 Intake Total 1989 600 / 2690 Balance 1989 600 / 2688 Weight last 48 hrs Weight 146 lb 3.2 oz Physical Exam Narrative: GENERAL: A&O x 3 VASCULAR: DP/PT pulses palpable 1/4 to left lower extremity and audible on handheld Doppler. Biphasic DP/biphasic PT. Delayed capillary refill to distal digits. DERMATOLOGICAL: Left foot second digit amputation site well coapted with sutures intact. No evidence of dehiscence or signs of deep space abscess. Erythema persists surrounding the amputation site but appears to be receding in comparison to before the amputation. MUSCULOSKELETAL: Tenderness with palpation of left foot second digit gangrene. Bilateral rigid hammertoe contractures of lesser digits. No other gross musculoskeletal deformities noted NEUROLOGICAL: Neurological sensation to the affected foot and ankle is present through L4-S1 dermatomes with no hyper/hypoesthesias, negative Tinel or Valleix's sign Data : 12/21/21 04:48 12/21/21 04:48 Micro: Microbiology 12/20/21 05:21 Blood Culture - Preliminary Blood NEGATIVE TO DATE 12/19/21 20:51 Blood Culture - Preliminary Blood NEGATIVE TO DATE 12/20/21 01:10 MRSA Culture - Final Nose 12/19/21 20:10 Gram Stain - Final Toe - #1 A&P Assessment and plan (1) Diabetic wet gangrene of the foot: (2) Cellulitis: (3) Type 2 diabetes mellitus: Qualifiers: Diabetes mellitus care home insulin use: with care home use Diabetes mellitus complication status: with neurologic complications Diabetes mellitus complication detail: with polyneuropathy Qualified Code(s): E11.42 - Type 2 diabetes mellitus with diabetic polyneuropathy; Z79.4 - assisted (current) use of insulin (4) PAD (peripheral artery disease): Plan -Okay for diet from podiatry standpoint -Vanco/Zosyn pending C&S while inpatient -Surgical dressing changed at bedside this morning. Adaptic, Betadine soaked 4 x 4 gauze, dry 4 x 4 gauze, Kerlix, Coban -Okay to discharge home per podiatry -Dressing applied today is to remain clean, dry and intact until follow-up outpatient -Discharge on broad-spectrum p.o. antibiotics. Recommend Bactrim DS twice daily x14 days -Patient scheduled to follow-up with me on 12/27/2021 at 9 AM Attestations Medical Necessity Statement*: See above Coding Level of Care Code [facility] Diagnoses Diabetic wet gangrene of the foot E11.52 Cellulitis L03.90 Type 2 diabetes mellitus E11.42; Z79.4 Diabetes mellitus care home insulin use: with terminal operator use Diabetes mellitus complication status: with neurologic complications Diabetes mellitus complication detail: with polyneuropathy PAD (peripheral artery disease) I73.9
[2021-12-21 08:00] VITALS: BP 129/59; PULSE 81; PULSE 85; RESP 16; TEMP 36.4; O2SAT 99
[2021-12-21] MEDS: insulin lispro 100 unit/1 mL SUBCUT (08:38)
[2021-12-21] MEDS: gabapentin 300 mg Capsule 600 MG PO (08:39)
[2021-12-21] MEDS: potassium chloride ER 20 mEq Tablet PO (08:39)
[2021-12-21] MEDS: docusate sodium 100 mg Capsule PO (08:39)
[2021-12-21] MEDS: ferrous sulfate EC 325 mg Tablet PO (08:39)
[2021-12-21] MEDS: FUROsemide 40 mg Tablet PO (08:39)
[2021-12-21] MEDS: aspirin 81 mg EC Tablet PO (08:39)
[2021-12-21] MEDS: hyDRALAzine 25 mg Tablet PO (08:39)
[2021-12-21 08:40] VITALS: BP 129/59
[2021-12-21] MEDS: atorvastatin 40 mg Tablet 20 MG PO (08:40)
[2021-12-21] MEDS: losartan 50 mg Tablet 25 MG PO (08:40)
--- NOTE | 2021-12-21 10:48 | P.DS_ITS ---
Discharge Providers Date of Admission: 12/19/21 19:05 Date of Discharge: December 21, 2021 Attending Provider at Admission: Alex Roberts DPM Attending Provider at Discharge: Gi Johnson MD Primary Care Provider: Buck Herbert MD Diagnoses at Discharge Discharge Diagnosis (1) Diabetic wet gangrene of the foot: Status: Acute (2) Cellulitis: Status: Acute (3) Type 2 diabetes mellitus: Status: Acute Qualifiers: Diabetes mellitus [facility] insulin use: with terminal superintendent use Diabetes mellitus complication status: with neurologic complications Diabetes mellitus complication detail: with polyneuropathy Qualified Code(s): E11.42 - Type 2 diabetes mellitus with diabetic polyneuropathy; Z79.4 - [facility] (current) use of insulin (4) PAD (peripheral artery disease): Status: Acute Reason for Visit Reason for Visit: Direct admit from [facility] Course Hospital Course 71-year-old female who was admitted from outside facility for her left second toe rectal gangrene Dr. 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 X-ray did show changes concerning to osteomyelitis but with source control and clear margins seen was made to discharge her on p.o. antibiotics. Offloading boot has been provided patient does use wheelchair at home. No signs of vascular compromise on physical examination. Physical Exam Narrative: Awake and alert Euvolemic Abdomen soft Currently on room air S1, S2 Left foot covered in clean dressing Discharge Data Studies Completed and Pending Completed Studies During Hospitalization Category Date Time Status XR foot LT min 3V* [id number] Routine Exams 12/19/21 20:12 Completed Pending at discharge Category Date Time Status Anaerobic Culture Routine Lab 12/20/21 12:34 Received Blood Culture Stat Lab 12/19/21 20:51 Results Vancomycin Trough Timed Lab 12/21/21 22:00 Ordered Wound Culture and Gram Stain Routine Lab 12/20/21 12:34 Received Wound Culture and Gram Stain Stat Lab 12/19/21 20:10 Results Pathology: Surgical [PTH] Routine Pth 12/20/21 12:41 Received Radiology Impressions Foot X-Ray 12/19/21 20:12 IMPRESSION: 1. Possible osteomyelitis and/or fracture in the 2nd toe. 2. Osteopenia. Laboratory Results WBC 10.7 10^3/uL (4.0-10.0) H 12/21/21 04:48 RBC 3.18 10^6/uL (4.1-5.3) L 12/21/21 04:48 Hgb 9.3 g/dL (11.5-15.3) L 12/21/21 04:48 Hct 29.3 % (37.0-47.0) L 12/21/21 04:48 MCV 92.1 fl (81-99) 12/21/21 04:48 MCH 29.2 pg (28.0-34.0) 12/21/21 04:48 MCHC 31.7 g/dL (30.0-36.0) 12/21/21 04:48 RDW 13.2 % (12.1-15.1) 12/21/21 04:48 Plt Count 318 10^3/cmm (130-400) 12/21/21 04:48 MPV 10.4 fL (7.4-10.4) 12/21/21 04:48 Neut % (Auto) 65.7 % 12/21/21 04:48 Lymph % (Auto) 21.2 % 12/21/21 04:48 [place] % (Auto) 10.9 % 12/21/21 04:48 Eos % (Auto) 1.3 % 12/21/21 04:48 Baso % (Auto) 0.5 % 12/21/21 04:48 Neut # (Auto) 7.05 10^3/uL (1.8-7.7) 12/21/21 04:48 Lymph # (Auto) 2.3 10^3/uL (0.8-4.8) 12/21/21 04:48 [place] # (Auto) 1.2 10^3/uL (0.2-0.9) H 12/21/21 04:48 Eos # (Auto) 0.1 10^3/uL (0.0-0.8) 12/21/21 04:48 Baso # (Auto) 0.1 10^3/uL (0.0-0.1) 12/21/21 04:48 Nucleated RBC % (auto) 0 % 12/21/21 04:48 Nucleated RBCs # 0.0 /100WBC 12/21/21 04:48 ESR 41 mm/hr (0-15) H 12/19/21 20:51 PT 15.60 SECONDS (12.1-14.9) H 12/19/21 20:51 INR 1.20 (0.8-1.2) 12/19/21 20:51 Sodium 135 mmol/L (136-145) L 12/21/21 04:48 Potassium 4.0 mmol/L (3.5-5.1) 12/21/21 04:48 Chloride 102 mmol/L (98-107) 12/21/21 04:48 Carbon Dioxide 22 mmol/L (22-29) 12/21/21 04:48 Anion Gap 15.0 (5-19) 12/21/21 04:48 BUN 11 mg/dL (8-23) 12/21/21 04:48 Creatinine 1.0 mg/dL (0.5-0.9) H 12/21/21 04:48 GFR Calculation Not Reportable 12/21/21 04:48 Glucose 141 mg/dL (65-115) H 12/21/21 04:48 POC Glucose 214 mg/dL (70-110) H 12/21/21 06:34 Estimat Average Glucose 105 12/19/21 20:51 Hemoglobin A1c 5.3 % (4.0-6.0) 12/19/21 20:51 Calculated Osmolality 282 mOsm/kg (285-295) L 12/21/21 04:48 Calcium 8.7 mg/dL (8.5-10.5) 12/21/21 04:48 Magnesium 1.8 mg/dL (1.7-2.3) 12/21/21 04:48 Total Bilirubin 0.4 mg/dL (0.15-1.2) 12/19/21 20:51 AST 15 U/L (0-32) 12/19/21 20:51 ALT 9 U/L (0-33) 12/19/21 20:51 Alkaline Phosphatase 97 U/L (35-105) 12/19/21 20:51 C-Reactive Protein 45.6 mg/L (0.0-4.9) H 12/19/21 20:51 Total Protein 7.3 g/dL (6.6-8.7) 12/19/21 20:51 Albumin 3.4 g/dL (3.5-5.2) L 12/19/21 20:51 Globulin 3.9 g/dL (1.3-4.6) 12/19/21 20:51 Procalcitonin 0.15 ng/mL (0-0.5) 12/19/21 20:51 TSH 0.09 uIU/mL (0.27-4.20) L 12/19/21 20:51 Vitals Last Vital Signs Temp 97.6 F 12/21/21 08:00 Pulse 85 12/21/21 08:00 Resp 16 12/21/21 08:00 BP 129/59 12/21/21 08:40 Pulse Ox 99 12/21/21 08:00 O2 Del Method 12/21/21 08:00 O2 Flow Rate 6 12/20/21 12:53 Discharge Plan Discharge Patient Disposition: Home Condition: Stable Prescriptions: New oxycodone 10 mg tablet 10 mg PO DAILY PRN (Reason: pain) Qty: 10 0RF doxycycline hyclate 100 mg tablet 100 mg PO BID 14 Days Qty: 28 0RF sennosides-docusate sodium [Senna-S] 8.6-50 mg tablet 1 tab-cap PO DAILY Qty: 20 0RF Continued (DME) lancets [OneTouch Delica Lancets] 30 gauge misc See Rx Instructions .ROUTE .MEDSUPPLY Qty: 100 0RF Rx Instructions: test daily as needed (DME) pen needle, diabetic [Comfort EZ Pen [place]] 31 gauge x 3/16 needle See Rx Instructions .ROUTE .COMPLEX Qty: 100 5RF Dose Instruction: USE WITH lantus Rx Instructions: USE WITH lantus Lasix 40 mg Tablet 40 mg PO DAILY alendronate 70 mg Tablet 70 mg PO Q7D sennosides-docusate sodium [Senna Plus] 8.6-50 mg Tablet 1 tab-cap PO BID PRN (Reason: Constipation) hydralazine 25 mg Tablet 25 mg PO TID clopidogrel 75 mg Tablet 75 mg PO QPM alprazolam 0.5 mg Tablet 0.25 mg PO DAILY PRN (Reason: Anxiety) losartan 25 mg Tablet 25 mg PO DAILY nitroglycerin [Nitrostat] 0.4 mg Tablet, Sublingual 0.4 mg SUBLINGUAL Q5M PRN (Reason: Chest Pain) Rx Instructions: do not exceed 3 doses per episode docusate sodium 100 mg Capsule 100 mg PO BID PRN (Reason: Constipation) Flovent HFA 220 mcg/actuation Hfa Aerosol Inhaler 2 puff INHALATION QID PRN (Reason: Shortness Of Breath) insulin aspart U-100 [Novolog Flexpen U-100 Insulin] 100 unit/mL (3 mL) Insulin Pen See Rx Instructions .ROUTE .COMPLEX Rx Instructions: per sliding scale tid *max 56 units per day* melatonin 5 mg Tablet 2.5 mg PO BEDTIME PRN (Reason: Insomnia) Narcan 4 mg/actuation [place],Non-Aerosol 1 spray INTRANASAL Q2M PRN (Reason: Opioid Overdose) Rx Instructions: spray 1 dose into ONE nostril; alternate nostrils w each dose until help arrives Tylenol 325 mg Tablet 325 mg PO Q4H PRN (Reason: Pain) Aspir-81 81 mg Tablet,Delayed Release (Dr/Ec) 81 mg PO QPM potassium chloride 20 mEq tablet,ER particles/crystals 20 meq PO QAM gabapentin 300 mg Capsule 600 mg PO BID Lantus Solostar U-100 Insulin 100 unit/mL (3 mL) insulin pen 45 unit SUBCUT BEDTIME hydroxyzine HCl 25 mg tablet 25 mg PO DAILY PRN (Reason: Anxiety) rosuvastatin 5 mg tablet 5 mg PO DAILY Discharge Orders: Discharge Order (Routine); Ordered 12/21/21 Ordered By: Gi Johnson Referrals: Alex Roberts DPM [Physician] - 12/27/21 Discharge Diet: Diabetic Discharge Activity: Use walker/crutches as instructed and Wheelchair as instructed Patient Instructions: Opioid Safety Discharge Attestations Time Spent in Discharge Care*: less than 30 min Quality Metrics Clinical Quality Measures [ No reported AMI, CVA or VTE this stay] Coding Level of Care Code Acute g [employer] note Diagnoses Diabetic wet gangrene of the foot E11.52 Cellulitis L03.90 Type 2 diabetes mellitus E11.42; Z79.4 Diabetes mellitus [facility] insulin use: with [facility] use Diabetes mellitus complication status: with neurologic complications Diabetes mellitus complication detail: with polyneuropathy PAD (peripheral artery disease) I73.9
[2021-12-21 11:11] VITALS: BP 129/59
[2021-12-21] MEDS: acetaminophen 325 mg Tablet 650 MG PO (11:14)
== END 2021-12-21 11:42 | disposition home or self-care (01) | DRG 256 ==
PROVIDERS: Admitting Provider Podiatrist Foot & Ankle Surgery; PCP Family Medicine; Visit Provider Internal Medicine
PROC: 0Y6S0Z0 Detachment at Left 2nd Toe, Complete, Open Approach (ICD-10-PCS; principal; 2021-12-20 12:00)
DX: E11.52 Type 2 diabetes mellitus with diabetic peripheral angiopathy with gangrene (principal); I96 Gangrene, not elsewhere classified; L03.032 Cellulitis of left toe; I25.10 Atherosclerotic heart disease of native coronary artery without angina pectoris; I10 Essential (primary) hypertension; E78.5 Hyperlipidemia, unspecified; E11.42 Type 2 diabetes mellitus with diabetic polyneuropathy; Z79.82 Long term (current) use of aspirin; Z79.02 Long term (current) use of antithrombotics/antiplatelets; Z86.73 Personal history of transient ischemic attack (TIA), and cerebral infarction without residual deficits; Z79.4 Long term (current) use of insulin; Z95.5 Presence of coronary angioplasty implant and graft
CPT/HCPCS: 36415; 36416; 73630; 80048; 80053; 82962; 83036; 83735; 84145; 84443; 85025; 85610; 85651; 86140; 87040; 87070; 87075; 87077; 87186; 87205; 87641; 88305; 88311; 94664; 96372; C9113; J1650; J1815; J2270; J2370; J2543; J2704; J3370; J3490; J7030

== ENCOUNTER → 2021-12-28 15:09 | Outpatient (BNVA) | payer MEDICARE, MEDICAID, SELFPAY | PROVIDERS: PCP Family Medicine; Visit Provider Podiatrist Foot & Ankle Surgery | DX: E11.52 Type 2 diabetes mellitus with diabetic peripheral angiopathy with gangrene (principal); L03.90 Cellulitis, unspecified; I73.9 Peripheral vascular disease, unspecified; Z79.4 Long term (current) use of insulin | CPT/HCPCS: 99024 ==

== ENCOUNTER → 2022-01-04 14:37 | Outpatient (BNVA) | payer MEDICARE, MEDICAID, SELFPAY | PROVIDERS: PCP Family Medicine; Visit Provider Podiatrist Foot & Ankle Surgery | DX: E11.52 Type 2 diabetes mellitus with diabetic peripheral angiopathy with gangrene (principal); L03.90 Cellulitis, unspecified; I73.9 Peripheral vascular disease, unspecified; E11.42 Type 2 diabetes mellitus with diabetic polyneuropathy; Z79.4 Long term (current) use of insulin; Z89.422 Acquired absence of other left toe(s); G62.9 Polyneuropathy, unspecified | CPT/HCPCS: 99213 ==

== ENCOUNTER 2022-07-12 13:15 | Outpatient (CLI) | payer BC, MEDICAID, SELFPAY ==
--- NOTE | 2022-07-12 13:31 | MM_ITS ---
WS: [id number] BILATERAL SCREENING DIGITAL TOMOSYNTHESIS MAMMOGRAM WITH CAD HISTORY: Z12.39 - Encounter for other screening for malignant neoplasm... Study is limited by patient's condition. Motion artifact. Neither breast is entirely included. COMPARISON: 08/25/2015 Bilateral CC and MLO views with tomosynthesis and synthetic mammography submitted. Computer aided det ection analyzed. Breast composition: The breasts are heterogeneously dense, which may obscure small masses. No suspici ous masses, microcalcifications or architectural distortion. Rodlike calcifications. Nipple retractio n bilaterally but greatest on the LEFT is similar to the prior study. MM/[place] [id number] IMPRESSION: BI-RADS: 2-Benign FOLLOW UP: 1 Year Follow-up Difficult examination. Quality is suboptimal due to positioning and breathing m otion artifact.
== END 2022-07-12 13:16 | disposition home or self-care (01) ==
LOC: RAD 13:20
PROVIDERS: PCP Family Medicine; Visit Provider Obstetrics & Gynecology
DX: Z12.31 Encounter for screening mammogram for malignant neoplasm of breast (principal)
CPT/HCPCS: 77063; 77067

== ENCOUNTER → 2022-07-19 12:33 | Outpatient (BNVA) | payer BC, MEDICAID, SELFPAY | PROVIDERS: PCP Family Medicine; Visit Provider Obstetrics & Gynecology | DX: R10.2 Pelvic and perineal pain (principal); Z90.710 Acquired absence of both cervix and uterus | CPT/HCPCS: 76857 ==

== ENCOUNTER → 2022-08-10 11:31 | Outpatient (BNVA) | payer MEDICARE, MEDICAID, SELFPAY | PROVIDERS: PCP Family Medicine; Visit Provider Nurse Practitioner | DX: E11.9 Type 2 diabetes mellitus without complications (principal) | CPT/HCPCS: 80053; 83036; 84443; 85025 ==

== ENCOUNTER 2022-09-27 14:49 | Emergency (ER) | payer BC, MEDICAID, SELFPAY ==
[2022-09-27 14:56] VITALS: BP 103/48; PULSE 61; RESP 18; TEMP 36.6; O2SAT 98; BMI 29.2
--- NOTE | 2022-09-27 15:05 | CTR_ITS ---
PROCEDURE INFORMATION: Exam: CT Head Without Contrast Exam date and time: 09/27/2022 3:15 PM Age: 72 years old Clinical indication: Weakness, extremity; Bilateral TECHNIQUE: Imaging protocol: Computed tomography of the head without contrast. Radiation optimization: All CT scans at this facility use at least one of these dose optimization techniques: automated exposure control; mA and/or kV adjustment per patient size (includes targeted exams where dose is matched to clinical indication); or iterative reconstruction. REPORTING DATA: Count of CT and Cardiac NM exams in prior 12 months: This patient has received 0 known CTs and 0 known cardiac nuclear medicine studies in the 12 months prior to the current study. COMPARISON: MR head wo con* [id number] 12/23/2020 4:24 PM RADIATION DOSE METRICS: Total DLP (mGy-cm): 972.58 FINDINGS: Brain: No intracranial hemorrhage. No mass effect, edema or midline shift. There are vague areas of decreased attenuation within the periventricular white matter likely secondary to chronic microvascular changes. Mild age related cerebral volume loss resulting in prominence of cortical sulci. Cerebral ventricles: Unremarkable for age and degree of cerebral volume loss. Paranasal sinuses: Visualized sinuses are unremarkable. No fluid levels. Mastoid air cells: Visualized mastoid air cells are well aerated. Bones/joints: Hyperostosis frontalis interna. No acute fracture. Soft tissues: Unremarkable. CT/CT head wo con* [id number] IMPRESSION: No acute intracranial abnormality.
[2022-09-27 15:10] LABS: Glucose Point of Care 172 mg/dL (70-110)
--- NOTE | 2022-09-27 15:11 | ECG_ITS ---
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 Measurements Intervals [place] Rate: 55 P: 56 WI: 145 QRS: 49 QRSD: 105 T: 73 QT: 462 QTc: 444 Interpretive Statements SINUS BRADYCARDIA Compared to ECG 03/12/2021 12:03:50 Sinus rhythm no longer present Electronically Signed On 09-27-2022 19:23:41 CDT by Juaquin Rahman M.D. [id number]
[2022-09-27 15:51] LABS: Add Urine Microscopic? NO; Charge for UA Resulting for Rev
[2022-09-27 15:53] LABS: Basophils % 0.4 %; Bilirubin Urine Neg (Negative); Blood Urine Neg (Negative); Eosinophils # 0.3 10^3/uL (0.0-0.8); Glucose Urine UA Norm (Normal); Hematocrit 28.9 % (37.0-47.0); Hemoglobin 9.3 g/dL (11.5-15.3); Ketones Urine Negative (Negative); Leukocyte Esterase Urine Negative (Negative); Lymphocytes # 1.3 10^3/uL (0.8-4.8); Lymphocytes % 15.9 %; Mean Corpuscular HGB Conc 32.2 g/dL (30.0-36.0); Mean Corpuscular Volume 93.2 fl (81-99); Mean Platelet Volume 10.5 fL (7.4-10.4); Monocytes # 0.8 10^3/uL (0.2-0.9); Monocytes % 9.1 %; Neutrophils # 5.96 10^3/uL (1.8-7.7); Neutrophils % 71.4 %; Nitrate Urine Negative (Negative); Nucleated Red Blood Cells % 0 %; Platelet Count 149 10^3/cmm (130-400); Protein Urine Neg (Negative); Red Cell Distribution Width 14.3 % (12.1-15.1); Specific Gravity, Urine 1.015 (1.005-1.030); Urine Appearance Clear (CLEAR); Urine Color Light yellow (Yellow); Urobilinogen Urine Norm (Negative); White Blood Count 8.4 10^3/uL (4.0-10.0); pH Urine 5 (5-7)
--- NOTE | 2022-09-27 15:53 | ED_ITS ---
HPI - Neuro Symptoms/Deficit General: Chief Complaint: Neuro Symptoms/Deficit Stated Complaint: Lethargy Time Seen by Provider: 09/27/22 14:55 Source: patient and EMS Mode of arrival: EMS History of Present Illness: 72-year-old female arrives via EMS is confused and disoriented they are concerned she may have a stroke. EMS reports when they first picked her up she had some one-sided facial droop little bit of dysarthria and left arm drift when I came to see the patient she at most had some dysarthria but no facial droop but no arm drift. EMS at the bedside confirmed that it was improved from when they had seen earlier when they first picked her up. No reported fever no chest pain no abdominal pain. Patient cannot really give a specific complaint as to why she is here other than her family called for her. Associated symptoms: Deny chest pain, malaise, nausea or vomiting Review of Systems Const: Denies: fever(s), chills, body aches, change in appetite, fatigue or malaise ENMT: Denies: throat pain, ear or mastoid pain, nasal discharge or nasal congestion Card: Denies: chest pain, edema, dyspnea on exertion or orthopnea Resp: Denies: dyspnea, productive cough or non-productive cough GI: Denies: abdominal pain, nausea, vomiting, hematemesis, coffee ground emesis, diarrhea, constipation, bloating, hematochezia or melena : Denies: flank pain, difficulty voiding, dysuria, urinary frequency or urinary urgency Skin/Breast: Denies: rash or pruritus [facility] ED PFSH: Medical History Aftercare following surgery of the genitourinary system CAD (coronary artery disease) LAD stent 2004 & 2008, last mibi stress test 02/12 was negative for ischemia but showed scarring. Chronic pain syndrome Cough Dyslipidemia Enrolled in chronic care management Generalized anxiety disorder History of TIA (transient ischemic attack) and stroke Hypertension Type 2 diabetes mellitus (~07/02/19) Vaginal prolapse Surgical History H/O heart artery stent History of appendectomy History of colpocleisis 03/17/2021- colpocleisis Lefort procedure, performed by Dr. Adler at [facility] History of tubal ligation Family History Father CAD (coronary artery disease) Lung disease Sister CAD (coronary artery disease) Cancer Chronic kidney disease (CKD) Diabetes Breast cancer onset unknown Colon cancer age onset unknown Brother CAD (coronary artery disease) Cancer Diabetes Hypertension Hyperlipidemia Colon cancer age onset unknown Mother Stroke Thyroid condition Other Heart disease Denies family history of Ovarian cancer Dementia Suicide Uterine cancer Social History Substance/Drug Use: never NIH stroke score NIHSS: Level Of Consciousness - 1a: 0 Level Of Consciousness Questions - 1b: Both Correct Level Of Consciousness Commands - 1c: Both Correct Best Gaze - 2: Normal Visual [place] - 3: No Visual Loss Facial Palsy - 4: Normal Motor Arm Right - 5: No Drift Motor Arm Left - 5: No Drift Motor Leg Right - 6: No Drift Motor Leg Left - 6: No Drift Limb Ataxia - 7: Absent Sensory - 8: Normal Best Language - 9: No Aphasia Dysarthia - 10: Mild/Moderate Dysarthia Extinction And Inattention - 11: 0 Score: Total Score: 1 Physical Exam Const: COMMON NORMALS: no acute distress GENERAL APPEARANCE: cooperative and comfortable ORIENTATION/CONSCIOUSNESS: Yes awake, Yes oriented to person, Yes oriented to place and Yes oriented to time HENMT: COMMON NORMALS: normocephalic, atraumatic and hearing grossly normal bilaterally HEAD & SCALP: normocephalic and atraumatic Resp: COMMON NORMALS: normal respiratory effort, No retractions, No use of accessory muscles and clear to auscultation bilaterally AUSCULTATION: clear to auscultation bilaterally Cardio: COMMON NORMALS: regular rate, regular rhythm and No murmurs present (Cardio) RATE: regular rate RHYTHM: regular rhythm GI: COMMON NORMALS: Soft to palpation and No hepatosplenomegaly present AUSCULTATION: Yes normoactive bowel sounds PALPATION: Yes Soft to palpation, No Tenderness to palpation present (GI), No Guarding due to palpation present (GI) and Yes No hepatosplenomegaly present Extremity: COMMON NORMALS: normal to inspection, capillary refill normal, no clubbing, cyanosis or edema, no calf tenderness and no pedal edema Neuro: SENSORIUM/ORIENTATION: Yes oriented to person, Yes oriented to place and Yes oriented to time Skin: COMMON NORMALS: no rashes or lesions noted GENERAL SKIN EXAM: no rashes or lesions noted Course Vital Signs: Vital signs: Vital Signs Temperature 97.8 F 09/27/22 14:56 Pulse Rate 61 09/27/22 14:56 Respiratory Rate 18 09/27/22 14:56 Blood Pressure 103/48 09/27/22 14:56 Pulse Oximetry 98 09/27/22 14:56 Oxygen Delivery Me thod Room Air 09/27/22 14:56 MDM - Neuro Symptoms/Deficit Medical Decision Making No focal logic deficits. Family were at the bedside states she seemed at her normal baseline they were concerned because at home because she was seem to be dozing off this happened multiple times in the past as well. At this point she is doing well she has no focal deficits CT of her head are negative her vital signs are very good and her laboratory tests are unremarkable patient ambulated without difficulty she has a little bit of a limp which is common for her and is unchanged. We will discharge patient home have her follow-up with her primary care doctor. Medical Records I reviewed the patient's medical records. Lab Data I reviewed the patient's lab results. 09/27/22 15:36 09/27/22 15:[address] 09/27/22 15:05 IMPRESSION: No acute intracranial abnormality. Laboratory Results WBC 8.4 10^3/uL (4.0-10.0) 09/27/22 15:36 RBC 3.10 10^6/uL (4.1-5.3) L 09/27/22 15:36 Hgb 9.3 g/dL (11.5-15.3) L 09/27/22 15:36 Hct 28.9 % (37.0-47.0) L 09/27/22 15:36 MCV 93.2 fl (81-99) 09/27/22 15:36 MCH 30.0 pg (28.0-34.0) 09/27/22 15:36 MCHC 32.2 g/dL (30.0-36.0) 09/27/22 15:36 RDW 14.3 % (12.1-15.1) 09/27/22 15:36 Plt Count 149 10^3/cmm (130-400) 09/27/22 15:36 MPV 10.5 fL (7.4-10.4) H 09/27/22 15:36 Neut % (Auto) 71.4 % 09/27/22 15:36 Lymph % (Auto) 15.9 % 09/27/22 15:36 [place] % (Auto) 9.1 % 09/27/22 15:36 Eos % (Auto) 3.0 % 09/27/22 15:36 Baso % (Auto) 0.4 % 09/27/22 15:36 Neut # (Auto) 5.96 10^3/uL (1.8-7.7) 09/27/22 15:36 Lymph # (Auto) 1.3 10^3/uL (0.8-4.8) 09/27/22 15:36 [place] # (Auto) 0.8 10^3/uL (0.2-0.9) 09/27/22 15:36 Eos # (Auto) 0.3 10^3/uL (0.0-0.8) 09/27/22 15:36 Baso # (Auto) 0.0 10^3/uL (0.0-0.1) 09/27/22 15:36 Nucleated RBC % (auto) 0 % 09/27/22 15:36 Nucleated RBCs # 0.0 /100WBC 09/27/22 15:36 Sodium 136 mmol/L (136-145) 09/27/22 15:36 Potassium 3.2 mmol/L (3.5-5.1) L 09/27/22 15:36 Chloride 104 mmol/L (98-107) 09/27/22 15:36 Carbon Dioxide 23 mmol/L (22-29) 09/27/22 15:36 Anion Gap 12.2 (5-19) 09/27/22 15:36 BUN 11 mg/dL (8-23) 09/27/22 15:36 Creatinine 0.8 mg/dL (0.5-0.9) 09/27/22 15:36 GFR Calculation Not Reportable 09/27/22 15:36 Glucose 132 mg/dL (65-115) H 09/27/22 15:36 POC Glucose 172 mg/dL (70-110) H 09/27/22 15:06 Calculated Osmolality 283 mOsm/kg (285-295) L 09/27/22 15:36 Calcium 8.2 mg/dL (8.5-10.5) L 09/27/22 15:36 Total Bilirubin 0.2 mg/dL (0.15-1.2) 09/27/22 15:36 AST 12 U/L (0-32) 09/27/22 15:36 ALT 7 U/L (0-33) 09/27/22 15:36 Alkaline Phosphatase 109 U/L (35-105) H 09/27/22 15:36 Total Protein 5.7 g/dL (6.6-8.7) L 09/27/22 15:36 Albumin 3.5 g/dL (3.5-5.2) 09/27/22 15:36 Globulin 2.2 g/dL (1.3-4.6) 09/27/22 15:36 Urine Color Light yellow (Yellow) 09/27/22 15:36 Urine Appearance Clear (CLEAR) 09/27/22 15:36 Urine pH 5 (5-7) 09/27/22 15:36 Ur Specific [place] 1.015 (1.005-1.030) 09/27/22 15:36 Urine Protein Neg (Negative) 09/27/22 15:36 Urine Glucose (UA) Norm (Normal) 09/27/22 15:36 Urine Ketones Negative (Negative) 09/27/22 15:36 Urine Blood Neg (Negative) 09/27/22 15:36 Urine Nitrate Negative (Negative) 09/27/22 15:36 Urine Bilirubin Neg (Negative) 09/27/22 15:36 Urine Urobilinogen Norm mg/dL (Negative) 09/27/22 15:36 Ur Leukocyte Esterase Negative (Negative) 09/27/22 15:36 Discharge Plan Discharge Patient Disposition: Home Clinical Impression: History of TIA (transient ischemic attack) and stroke, Mild memory disturbances not amounting to dementia, Type 2 diabetes mellitus Condition: Stable Prescriptions: No Action cephalexin 500 mg capsule 500 mg PO BID ferrous sulfate [FeroSul] 325 mg (65 mg iron) tablet 325 mg PO DAILY (DME) orthotic shoes custom See Rx Instructions .Route .MEDSUPPLY Qty: 1 0RF Rx Instructions: As directed (DME) lancets [OneTouch Delica Lancets] 30 gauge misc See Rx Instructions .ROUTE .MEDSUPPLY Qty: 100 0RF Rx Instructions: test daily as needed (DME) pen needle, diabetic [Comfort EZ Pen [place]] 31 gauge x 3/16 needle See Rx Instructions .ROUTE .COMPLEX Qty: 100 5RF Dose Instruction: USE WITH lantus Rx Instructions: USE WITH lantus (DME) diabetic shoes See Rx Instructions .Route .MEDSUPPLY Qty: 1 0RF Rx Instructions: Please include 3 inserts Lasix 40 mg tablet 40 mg PO DAILY Qty: 30 0RF potassium chloride 20 mEq tablet,ER particles/crystals 20 meq PO QAM Qty: 30 0RF losartan 25 mg tablet 25 mg PO DAILY Qty: 30 0RF hydroxyzine HCl 25 mg tablet 25 mg PO DAILY PRN (Reason: Anxiety) Qty: 30 0RF furosemide 40 mg tablet See Rx Instructions .ROUTE .COMPLEX Qty: 90 0RF Dose Instruction: TAKE 1 TABLET BY MOUTH EVERY DAY Rx Instructions: TAKE 1 TABLET BY MOUTH EVERY DAY Flovent HFA 220 mcg/actuation HFA aerosol inhaler See Rx Instructions .ROUTE .COMPLEX Qty: 12 0RF Dose Instruction: USE 2 INHALATIONS 4 TIMES DAILY NEEDED FOR SHORTNESS OF BREATH Rx Instructions: USE 2 INHALATIONS 4 TIMES DAILY NEEDED FOR SHORTNESS OF BREATH insulin glargine [Lantus Solostar U-100 Insulin] 100 unit/mL (3 mL) insulin pen See Rx Instructions .ROUTE .COMPLEX Qty: 15 1RF Dose Instruction: INJECT 45 UNITS SUB-Q ONCE DAILY Rx Instructions: INJECT 45 UNITS SUB-Q ONCE DAILY alendronate 70 mg tablet 70 mg PO Q7D Qty: 4 0RF rosuvastatin 5 mg tablet See Rx Instructions .ROUTE .COMPLEX Qty: 90 1RF Dose Instruction: TAKE 1 TABLET BY MOUTH DAILY Rx Instructions: TAKE 1 TABLET BY MOUTH DAILY clopidogrel 75 mg tablet 75 mg PO DAILY 90 Days Qty: 90 0RF sennosides-docusate sodium [Senna Plus] 8.6-50 mg Tablet 1 tab-cap PO BID PRN (Reason: Constipation) alprazolam 0.5 mg Tablet 0.25 mg PO DAILY PRN (Reason: Anxiety) nitroglycerin [Nitrostat] 0.4 mg Tablet, Sublingual 0.4 mg SUBLINGUAL Q5M PRN (Reason: Chest Pain) Rx Instructions: do not exceed 3 doses per episode docusate sodium 100 mg Capsule 100 mg PO BID PRN (Reason: Constipation) insulin aspart U-100 [Novolog FlexPen U-100 Insulin] 100 unit/mL (3 mL) Insulin Pen See Rx Instructions .ROUTE .COMPLEX Rx Instructions: per sliding scale tid *max 56 units per day* melatonin 5 mg Tablet 2.5 mg PO BEDTIME PRN (Reason: Insomnia) Narcan 4 mg/actuation [place],Non-Aerosol 1 spray INTRANASAL Q2M PRN (Reason: Opioid Overdose) Rx Instructions: spray 1 dose into ONE nostril; alternate nostrils w each dose until help arrives Tylenol 325 mg Tablet 325 mg PO Q4H PRN (Reason: Pain) aspirin 81 mg Tablet,Delayed Release (Dr/Ec) 81 mg PO QPM gabapentin 300 mg Capsule 600 mg PO BID [place]na-S 8.6-50 mg tablet 1 tab-cap PO DAILY Qty: 20 0RF Discharge Orders: Discharge ED (Routine); Ordered 09/27/22 Ordered By: Anton Mao Referrals: Buck Herbert MD [Primary Care Provider] - Discharge Diet: Usual diet Discharge Activity: Increase activity as tolerated Patient Instructions: Opioid Safety, Pain Management Activity Restrictions/Additional Instructions: You were evaluated in the emergency room for stroke there is no evidence of acute stroke at this time. Laboratory test vital signs and CTs were all negative. We will discharge you home have you follow-up with your primary care doctor as needed continue all of your current medications. Coding Level of Care Code ED [employer] for [facility]
[2022-09-27 16:17] LABS: Alanine Aminotransferase 7 U/L (0-33); Albumin Level 3.5 g/dL (3.5-5.2); Alkaline Phosphatase 109 U/L (35-105); Anion Gap 12.2 (5-19); Aspartate Amino Transferase 12 U/L (0-32); Blood Urea Nitrogen 11 mg/dL (8-23); Calcium 8.2 mg/dL (8.5-10.5); Carbon Dioxide 23 mmol/L (22-29); Chloride 104 mmol/L (98-107); Globulin 2.2 g/dL (1.3-4.6); Glucose 132 mg/dL (65-115); Osmolality Calculated 283 mOsm/kg (285-295); Potassium 3.2 mmol/L (3.5-5.1); Sodium 136 mmol/L (136-145); Total Bilirubin 0.2 mg/dL (0.15-1.2); Total Protein 5.7 g/dL (6.6-8.7)
--- NOTE | 2022-09-27 16:53 | PC.NURSE ---
PT AMBULATED APPROX 60 FEET. PT AMBULATED WELL. PT HAS SLIGHT LIMP. FAMILY PRESENT STATES THIS IS NORMAL. PHYSICIAN NOTIFIED.
--- NOTE | 2022-09-27 17:08 | PC.NURSE ---
PHYSICIAN INSTRUCTED NIH AT BEDSIDE. PHYSICIAN SCORED A ONE. EMS REPORTED SLURRED SPEECH BEING AT LEAST TWO DAYS OLD PER FAMILY.
[2022-09-27 17:19] VITALS: BP 117/62; PULSE 67; O2SAT 99
== END 2022-09-27 17:18 | disposition home or self-care (01) ==
PROVIDERS: Emergency Provider Family Medicine; PCP Family Medicine
DX: R41.3 Other amnesia (principal); E11.9 Type 2 diabetes mellitus without complications; Z86.73 Personal history of transient ischemic attack (TIA), and cerebral infarction without residual deficits; Z79.4 Long term (current) use of insulin; Z79.02 Long term (current) use of antithrombotics/antiplatelets; Z79.82 Long term (current) use of aspirin; I25.10 Atherosclerotic heart disease of native coronary artery without angina pectoris; E78.5 Hyperlipidemia, unspecified; I10 Essential (primary) hypertension
CPT/HCPCS: 36415; 36416; 70450; 80053; 81003; 82962; 85025; 93005; 99285

== ENCOUNTER 2023-08-03 03:58 | Observation (INO) | payer MEDICARE, MEDICAID, SELFPAY ==
[2023-08-03] VITALS (63 sets, daily range): BP systolic 80–181; BP diastolic 48–118; PULSE 62–98; RESP 11–28; TEMP 34.2–36.8; O2SAT 91–100; BMI 29.2; BMI 26.1
--- NOTE | 2023-08-03 04:08 | CTR_ITS ---
PROCEDURE INFORMATION: Exam: CT Head Without Contrast Exam date and time: 08/03/2023 4:24 AM Age: 73 years old Clinical indication: Pain; Headache TECHNIQUE: Imaging protocol: Computed tomography of the head without contrast. Radiation optimization: All CT scans at this facility use at least one of these dose optimization techniques: automated exposure control; mA and/or kV adjustment per patient size (includes targeted exams where dose is matched to clinical indication); or iterative reconstruction. COMPARISON: CT head wo con* [id number] 09/27/2022 3:15 PM RADIATION DOSE METRICS: Total DLP (mGy-cm): 975.8 FINDINGS: Brain: No acute intracranial hemorrhage or mass effect. There is mild decreased attenuation in the periventricular white matter, likely from microvascular disease. No definite acute infarct by CT. MRI would be more sensitive/specific for detection, as clinically directed. Very small nonspecific calcification again seen in the right parietal region, unchanged. Cerebral ventricles: Ventricle size is normal for age. Paranasal sinuses: Included paranasal sinuses are essentially clear. Mastoid air cells: Small amounts of fluid in some right mastoid air cells, similar to prior exam. Bones: No definite acute skull fracture. Soft tissues: No significant acute finding. Vasculature: Vascular calcifications in the internal carotid and vertebral basilar systems. CT/CT head wo con* [id number] IMPRESSION: 1. No acute intracranial hemorrhage or mass effect. 2. Changes of microvascular disease. 3. No definite acute infarct by CT, see above. 4. Other findings discussed above.
--- NOTE | 2023-08-03 04:08 | ECG_ITS ---
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 Measurements Intervals [place] Rate: 67 P: 51 MO: 145 QRS: 43 QRSD: 100 T: 56 QT: 427 QTc: 452 Interpretive Statements SINUS RHYTHM POSSIBLE LEFT ATRIAL ENLARGEMENT [-0.1mV P-WAVE IN V1/V2] Compared to ECG 09/27/2022 15:11:30 Sinus bradycardia no longer present Electronically Signed On 08-03-2023 17:14:41 CDT by Juaquin Rahman M.D. [id number]
[2023-08-03 04:12] LABS: Glucose Point of Care 136 mg/dL (70-110)
--- NOTE | 2023-08-03 04:14 | W.ED.GENADLT ---
Documented by User: Pee Galvan DO 08/03/23 04:16 HPI - General Adult General: Chief complaint: Weakness Stated complaint: Hypoglycemia Time Seen by Provider: 08/03/23 04:08 History of Present Illness: Patient presents to the ER by EMS with main complaints of low blood sugar. EMS stated her blood sugar is approximately 49 patient was hallucinating and complaining of a headache. Patient does have a history of migraines. Patient is an insulin-dependent diabetic. Patient received approximately 23 units of Lantus last night. Patient does have a history of CAD and CVA. Review of Systems General: Reports: 10 or more systems reviewed and unremarkable except in HPI and below PFSH ED PFSH: Medical History Vaginal prolapse Aftercare following surgery of the genitourinary system Enrolled in chronic care management Cough Chronic pain syndrome Dyslipidemia History of TIA (transient ischemic attack) and stroke Hypertension CAD (coronary artery disease) LAD stent 2004 & 2008, last mibi stress test 02/12 was negative for ischemia but showed scarring. Generalized anxiety disorder Type 2 diabetes mellitus (~07/02/19) Surgical History History of colpocleisis 03/17/2021- colpocleisis Lefort procedure, performed by Dr. Adler at [facility] H/O heart artery stent History of appendectomy History of tubal ligation Family History Father CAD (coronary artery disease) Lung disease Sister CAD (coronary artery disease) Cancer Chronic kidney disease (CKD) Diabetes Breast cancer onset unknown Colon cancer age onset unknown Brother CAD (coronary artery disease) Cancer Diabetes Hypertension Hyperlipidemia Colon cancer age onset unknown Mother Stroke Thyroid disease Other Heart disease Denies family history of Ovarian cancer Dementia Suicide Uterine cancer Social History Substance/Drug Use: never Physical Exam Const: COMMON NORMALS: no acute distress, average body habitus, no limitations, healthy appearing, alert and well nourished HENMT: COMMON NORMALS: normocephalic, atraumatic, hearing grossly normal bilaterally, external ears normal, Normal external nose present, moist oral mucous membranes and oropharynx normal HEAD & SCALP: normocephalic and atraumatic NOSE: Normal external nose present EXTERNAL EAR: Yes external ears normal Eye: COMMON NORMALS: Equal, round and reactive pupils present, EOMs intact bilaterally, conjunctivae normal and no scleral icterus CONJUNCTIVA: Yes conjunctivae normal PUPIL: Yes Equal, round and reactive pupils present Neck/C-Spine: COMMON NORMALS: no JVD Chest: COMMONS NORMALS: normal inspection of the chest and normal palpation of entire chest wall Resp: COMMON NORMALS: normal respiratory effort, No retractions, No use of accessory muscles and clear to auscultation bilaterally AUSCULTATION: clear to auscultation bilaterally Cardio: COMMON NORMALS: no JVD, regular rate, regular rhythm, S1 normal heart sound present, S2 normal heart sound present, No gallops present (Cardio), No clicks present (Cardio), No murmurs present (Cardio) and No rub (Cardio) RATE: regular rate RHYTHM: regular rhythm HEART SOUNDS: S1 normal heart sound present and S2 normal heart sound present GI: COMMON NORMALS: Normal to inspection, nondistended, normoactive bowel sounds present, Soft to palpation, non-tender, No hepatosplenomegaly present and no masses PALPATION: Yes Soft to palpation and Yes No hepatosplenomegaly present Neuro: SENSORIUM/ORIENTATION: Yes alert Course Vital Signs: Vital signs: Vital Signs Temperature 94.6 F L 08/03/23 05:14 Pulse Rate 70 08/03/23 05:30 Respiratory Rate 12 08/03/23 06:00 Blood Pressure 138/79 08/03/23 06:00 Pulse Oximetry 98 08/03/23 06:00 Oxygen Delivery Me thod Room Air 08/03/23 06:00 [facility] - General Adult Medical Records I reviewed the patient's medical records. Lab Data I reviewed the patient's lab results. 08/03/23 04:42 08/03/23 04:[address] 08/03/23 04:08 IMPRESSION: 1. No acute intracranial hemorrhage or mass effect. 2. Changes of microvascular disease. 3. No definite acute infarct by CT, see above. 4. Other findings discussed above. Chest X-Ray 08/03/23 04:48 IMPRESSION: 1. No definite pneumonia or CHF. 2. Other findings discussed above. Laboratory Results WBC 17.92 10^3/uL (3.29-11.43) H 08/03/23 04:42 RBC 3.48 10^6/uL (3.85-5.65) L 08/03/23 04:42 Hgb 10.30 g/dL (11.27-16.99) L 08/03/23 04:42 Hct 32.5 % (36-47) L 08/03/23 04:42 MCV 93.4 fl (85-98) 08/03/23 04:42 MCH 29.6 pg (27-33) 08/03/23 04:42 MCHC 31.7 g/dL (30-55) 08/03/23 04:42 RDW 15.2 % (12.1-15.1) H 08/03/23 04:42 Plt Count 450 10^3/cmm (157-399) H 08/03/23 04:42 MPV 9.0 fL (7.4-10.4) 08/03/23 04:42 Neut % (Auto) 89.8 % 08/03/23 04:42 Lymph % (Auto) 5.7 % 08/03/23 04:42 [place] % (Auto) 3.2 % 08/03/23 04:42 Eos % (Auto) 0.5 % 08/03/23 04:42 Baso % (Auto) 0.2 % 08/03/23 04:42 Neut # (Auto) 16.07 10^3/uL (1.8-7.7) H 08/03/23 04:42 Lymph # (Auto) 1.0 10^3/uL (0.8-4.8) 08/03/23 04:42 [place] # (Auto) 0.6 10^3/uL (0.2-0.9) 08/03/23 04:42 Eos # (Auto) 0.1 10^3/uL (0.0-0.8) 08/03/23 04:42 Baso # (Auto) 0.0 10^3/uL (0.0-0.1) 08/03/23 04:42 Nucleated RBC % (auto) 0 % 08/03/23 04:42 Nucleated RBCs # 0.0 /100WBC 08/03/23 04:42 PT 13.40 SECONDS (12.1-14.9) 08/03/23 04:42 INR 0.99 (0.8-1.2) 08/03/23 04:42 Sodium 129 mmol/L (136-145) L 08/03/23 04:42 Potassium 4.2 mmol/L (3.5-5.1) 08/03/23 04:42 Chloride 92 mmol/L (98-107) L 08/03/23 04:42 Carbon Dioxide 27 mmol/L (22-29) 08/03/23 04:42 Anion Gap 14.2 (5-19) 08/03/23 04:42 BUN 23 mg/dL (8-23) 08/03/23 04:42 Creatinine 0.8 mg/dL (0.5-0.9) 08/03/23 04:42 GFR Calculation Not Reportable 08/03/23 04:42 Glucose 97 mg/dL (65-115) 08/03/23 04:42 POC Glucose 82 mg/dL (70-110) 08/03/23 05:43 Calculated Osmolality 272 mOsm/kg (285-295) L 08/03/23 04:42 Lactic Acid 1.8 mmol/L (0.5-2.2) 08/03/23 04:42 Calcium 9.2 mg/dL (8.5-10.5) 08/03/23 04:42 Magnesium 2.3 mg/dL (1.7-2.3) 08/03/23 04:42 Total Bilirubin 0.3 mg/dL (0.15-1.2) 08/03/23 04:42 AST 38 U/L (0-32) H 08/03/23 04:42 ALT 22 U/L (0-33) 08/03/23 04:42 Alkaline Phosphatase 219 U/L (35-105) H 08/03/23 04:42 NT-Pro-B Natriuret Pep 267 pg/mL (0-450) 08/03/23 04:42 Total Protein 7.6 g/dL (6.6-8.7) 08/03/23 04:42 Albumin 3.6 g/dL (3.5-5.2) 08/03/23 04:42 Globulin 4.0 g/dL (1.3-4.6) 08/03/23 04:42 Procalcitonin 0.46 ng/mL (0-0.5) 08/03/23 04:42 TSH 0.89 uIU/mL (0.27-4.20) 08/03/23 04:42 Urine Color Light yellow (Yellow) 08/03/23 05:00 Urine Appearance Clear (CLEAR) 08/03/23 05:00 Urine pH 7 (5-7) 08/03/23 05:00 Ur Specific [place] 1.010 (1.005-1.030) 08/03/23 05:00 Urine Protein Neg (Negative) 08/03/23 05:00 Urine Glucose (UA) Norm (Normal) 08/03/23 05:00 Urine Ketones Negative (Negative) 08/03/23 05:00 Urine Blood Neg (Negative) 08/03/23 05:00 Urine Nitrate Negative (Negative) 08/03/23 05:00 Urine Bilirubin Neg (Negative) 08/03/23 05:00 Urine Urobilinogen Neg mg/dL (Negative) 08/03/23 05:00 Ur Leukocyte Esterase Negative (Negative) 08/03/23 05:00 All radiology interpretation(s) finalized by discharge Discharge Plan Discharge Patient Disposition: Admitted As Inpatient Clinical Impression: Hypoglycemia, Altered mental status, Hypothermia Condition: Stable Prescriptions: No Action ferrous sulfate [FeroSul] 325 mg (65 mg iron) tablet 325 mg PO DAILY (DME) orthotic shoes custom See Rx Instructions .Route .MEDSUPPLY Qty: 1 0RF Rx Instructions: As directed (DME) diabetic shoes with 3 inserts See Rx Instructions .Route .MEDSUPPLY Qty: 1 0RF Rx Instructions: As directed to the shoe igor cephalexin 500 mg capsule 500 mg PO TID Qty: 21 0RF (DME) lancets [OneTouch Delica Lancets] 30 gauge misc See Rx Instructions .ROUTE .MEDSUPPLY Qty: 100 0RF Rx Instructions: test daily as needed (DME) pen needle, diabetic [Comfort EZ Pen Electra] 31 gauge x 3/16 needle See Rx Instructions .ROUTE .COMPLEX Qty: 100 5RF Dose Instruction: USE WITH lantus Rx Instructions: USE WITH lantus (DME) diabetic shoes See Rx Instructions .Route .MEDSUPPLY Qty: 1 0RF Rx Instructions: Please include 3 inserts Lasix 40 mg tablet 40 mg PO DAILY Qty: 30 0RF potassium chloride 20 mEq tablet,ER particles/crystals 20 meq PO QAM Qty: 30 0RF losartan 25 mg tablet 25 mg PO DAILY Qty: 30 0RF hydroxyzine HCl 25 mg tablet 25 mg PO DAILY PRN (Reason: Anxiety) Qty: 30 0RF Flovent HFA 220 mcg/actuation HFA aerosol inhaler See Rx Instructions .ROUTE .COMPLEX Qty: 12 0RF Dose Instruction: USE 2 INHALATIONS 4 TIMES DAILY NEEDED FOR SHORTNESS OF BREATH Rx Instructions: USE 2 INHALATIONS 4 TIMES DAILY NEEDED FOR SHORTNESS OF BREATH alendronate 70 mg tablet 70 mg PO Q7D Qty: 4 0RF rosuvastatin 5 mg tablet See Rx Instructions .ROUTE .COMPLEX Qty: 90 1RF Dose Instruction: TAKE 1 TABLET BY MOUTH DAILY Rx Instructions: TAKE 1 TABLET BY MOUTH DAILY clopidogrel 75 mg tablet See Rx Instructions .ROUTE .COMPLEX Qty: 30 0RF Dose Instruction: TAKE 1 TABLET BY MOUTH EVERY DAY. Must have an appointment FOR further refills Rx Instructions: TAKE 1 TABLET BY MOUTH EVERY DAY. Must have an appointment FOR further refills furosemide 40 mg tablet See Rx Instructions .ROUTE .COMPLEX Qty: 30 0RF Dose Instruction: TAKE 1 TABLET BY MOUTH EVERY DAY Rx Instructions: TAKE 1 TABLET BY MOUTH EVERY DAY insulin glargine [Lantus Solostar U-100 Insulin] 100 unit/mL (3 mL) insulin pen See Rx Instructions .ROUTE .COMPLEX Qty: 15 0RF Dose Instruction: INJECT 45 UNITS SUB-Q ONCE DAILY Rx Instructions: INJECT 45 UNITS SUB-Q ONCE DAILY sennosides-docusate sodium [Senna Plus] 8.6-50 mg Tablet 1 tab-cap PO BID PRN (Reason: Constipation) alprazolam 0.5 mg Tablet 0.25 mg PO DAILY PRN (Reason: Anxiety) nitroglycerin [Nitrostat] 0.4 mg Tablet, Sublingual 0.4 mg SUBLINGUAL Q5M PRN (Reason: Chest Pain) Rx Instructions: do not exceed 3 doses per episode docusate sodium 100 mg Capsule 100 mg PO BID PRN (Reason: Constipation) insulin aspart U-100 [Novolog FlexPen U-100 Insulin] 100 unit/mL (3 mL) Insulin Pen See Rx Instructions .ROUTE .COMPLEX Rx Instructions: per sliding scale tid *max 56 units per day* melatonin 5 mg Tablet 2.5 mg PO BEDTIME PRN (Reason: Insomnia) Narcan 4 mg/actuation [place],Non-Aerosol 1 spray INTRANASAL Q2M PRN (Reason: Opioid Overdose) Rx Instructions: spray 1 dose into ONE nostril; alternate nostrils w each dose until help arrives Tylenol 325 mg Tablet 325 mg PO Q4H PRN (Reason: Pain) aspirin 81 mg Tablet,Delayed Release (Dr/Ec) 81 mg PO QPM gabapentin 300 mg Capsule 600 mg PO BID Senna-S 8.6-50 mg tablet 1 tab-cap PO DAILY Qty: 20 0RF Referrals: Khadijah Dozier NP [Primary Care Provider] - Coding Level of Care Code 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 [employer]g Fwd Documented by User: Shahana Reece MD 08/03/23 06:22 HPI - General Adult General: Chief complaint: Weakness Stated complaint: Hypoglycemia Time Seen by Provider: 08/03/23 04:08 [facility] ED PFSH: Medical History Vaginal prolapse Aftercare following surgery of the genitourinary system Enrolled in chronic care management Cough Chronic pain syndrome Dyslipidemia History of TIA (transient ischemic attack) and stroke Hypertension CAD (coronary artery disease) LAD stent 2004 & 2008, last mibi stress test 02/12 was negative for ischemia but showed scarring. Generalized anxiety disorder Type 2 diabetes mellitus (~07/02/19) Surgical History History of colpocleisis 03/17/2021- colpocleisis Lefort procedure, performed by Dr. Adler at [facility] H/O heart artery stent History of appendectomy History of tubal ligation Family History Father CAD (coronary artery disease) Lung disease Sister CAD (coronary artery disease) Cancer Chronic kidney disease (CKD) Diabetes Breast cancer onset unknown Colon cancer age onset unknown Brother CAD (coronary artery disease) Cancer Diabetes Hypertension Hyperlipidemia Colon cancer age onset unknown Mother Stroke Thyroid disease Other Heart disease Denies family history of Ovarian cancer Dementia Suicide Uterine cancer Social History Substance/Drug Use: never Course Vital Signs: Vital signs: Vital Signs Temperature 94.6 F L 08/03/23 05:14 Pulse Rate 70 08/03/23 05:30 Respiratory Rate 12 08/03/23 06:00 Blood Pressure 138/79 08/03/23 06:00 Pulse Oximetry 98 08/03/23 06:00 Oxygen Delivery Me thod Room Air 08/03/23 06:00 MDM - General Adult Medical Decision Making Patient presented here with altered mental status all hypothermia likely from her hypoglycemia she became more alert as her glucose is risen did drop again to 82 give her an amp of D10 having her eat has an elevated white count likely stress reaction took patient over from Dr. Galvan she has no signs of infection spoke to the hospitalist and will admit at this time Lab Data 08/03/23 04:42 08/03/23 04:[address] 08/03/23 04:08 IMPRESSION: 1. No acute intracranial hemorrhage or mass effect. 2. Changes of microvascular disease. 3. No definite acute infarct by CT, see above. 4. Other findings discussed above. Chest X-Ray 08/03/23 04:48 IMPRESSION: 1. No definite pneumonia or CHF. 2. Other findings discussed above. Laboratory Results WBC 17.92 10^3/uL (3.29-11.43) H 08/03/23 04:42 RBC 3.48 10^6/uL (3.85-5.65) L 08/03/23 04:42 Hgb 10.30 g/dL (11.27-16.99) L 08/03/23 04:42 Hct 32.5 % (36-47) L 08/03/23 04:42 MCV 93.4 fl (85-98) 08/03/23 04:42 MCH 29.6 pg (27-33) 08/03/23 04:42 MCHC 31.7 g/dL (30-55) 08/03/23 04:42 RDW 15.2 % (12.1-15.1) H 08/03/23 04:42 Plt Count 450 10^3/cmm (157-399) H 08/03/23 04:42 MPV 9.0 fL (7.4-10.4) 08/03/23 04:42 Neut % (Auto) 89.8 % 08/03/23 04:42 Lymph % (Auto) 5.7 % 08/03/23 04:42 [place] % (Auto) 3.2 % 08/03/23 04:42 Eos % (Auto) 0.5 % 08/03/23 04:42 Baso % (Auto) 0.2 % 08/03/23 04:42 Neut # (Auto) 16.07 10^3/uL (1.8-7.7) H 08/03/23 04:42 Lymph # (Auto) 1.0 10^3/uL (0.8-4.8) 08/03/23 04:42 [place] # (Auto) 0.6 10^3/uL (0.2-0.9) 08/03/23 04:42 Eos # (Auto) 0.1 10^3/uL (0.0-0.8) 08/03/23 04:42 Baso # (Auto) 0.0 10^3/uL (0.0-0.1) 08/03/23 04:42 Nucleated RBC % (auto) 0 % 08/03/23 04:42 Nucleated RBCs # 0.0 /100WBC 08/03/23 04:42 PT 13.40 SECONDS (12.1-14.9) 08/03/23 04:42 INR 0.99 (0.8-1.2) 08/03/23 04:42 Sodium 129 mmol/L (136-145) L 08/03/23 04:42 Potassium 4.2 mmol/L (3.5-5.1) 08/03/23 04:42 Chloride 92 mmol/L (98-107) L 08/03/23 04:42 Carbon Dioxide 27 mmol/L (22-29) 08/03/23 04:42 Anion Gap 14.2 (5-19) 08/03/23 04:42 BUN 23 mg/dL (8-23) 08/03/23 04:42 Creatinine 0.8 mg/dL (0.5-0.9) 08/03/23 04:42 GFR Calculation Not Reportable 08/03/23 04:42 Glucose 97 mg/dL (65-115) 08/03/23 04:42 POC Glucose 82 mg/dL (70-110) 08/03/23 05:43 Calculated Osmolality 272 mOsm/kg (285-295) L 08/03/23 04:42 Lactic Acid 1.8 mmol/L (0.5-2.2) 08/03/23 04:42 Calcium 9.2 mg/dL (8.5-10.5) 08/03/23 04:42 Magnesium 2.3 mg/dL (1.7-2.3) 08/03/23 04:42 Total Bilirubin 0.3 mg/dL (0.15-1.2) 08/03/23 04:42 AST 38 U/L (0-32) H 08/03/23 04:42 ALT 22 U/L (0-33) 08/03/23 04:42 Alkaline Phosphatase 219 U/L (35-105) H 08/03/23 04:42 NT-Pro-B Natriuret Pep 267 pg/mL (0-450) 08/03/23 04:42 Total Protein 7.6 g/dL (6.6-8.7) 08/03/23 04:42 Albumin 3.6 g/dL (3.5-5.2) 08/03/23 04:42 Globulin 4.0 g/dL (1.3-4.6) 08/03/23 04:42 Procalcitonin 0.46 ng/mL (0-0.5) 08/03/23 04:42 TSH 0.89 uIU/mL (0.27-4.20) 08/03/23 04:42 Urine Color Light yellow (Yellow) 08/03/23 05:00 Urine Appearance Clear (CLEAR) 08/03/23 05:00 Urine pH 7 (5-7) 08/03/23 05:00 Ur Specific [place] 1.010 (1.005-1.030) 08/03/23 05:00 Urine Protein Neg (Negative) 08/03/23 05:00 Urine Glucose (UA) Norm (Normal) 08/03/23 05:00 Urine Ketones Negative (Negative) 08/03/23 05:00 Urine Blood Neg (Negative) 08/03/23 05:00 Urine Nitrate Negative (Negative) 08/03/23 05:00 Urine Bilirubin Neg (Negative) 08/03/23 05:00 Urine Urobilinogen Neg mg/dL (Negative) 08/03/23 05:00 Ur Leukocyte Esterase Negative (Negative) 08/03/23 05:00 Discharge Plan Discharge Patient Disposition: Admitted As Inpatient Clinical Impression: Hypoglycemia, Altered mental status, Hypothermia Condition: Stable Prescriptions: No Action ferrous sulfate [FeroSul] 325 mg (65 mg iron) tablet 325 mg PO DAILY (DME) orthotic shoes custom See Rx Instructions .Route .MEDSUPPLY Qty: 1 0RF Rx Instructions: [place] directed [place] diabetic shoes with 3 inserts See Rx Instructions .Route .MEDSUPPLY Qty: 1 0RF Rx Instructions: As directed to the shoe igor cephalexin 500 mg capsule 500 mg PO TID Qty: 21 0RF ([facility] lancets [OneTouch Delica Lancets] 30 gauge misc See Rx Instructions .ROUTE .MEDSUPPLY Qty: 100 0RF Rx Instructions: test daily as needed ([facility] pen needle, diabetic [Comfort EZ Pen Electra] 31 gauge x 3/16 needle See Rx Instructions .ROUTE .COMPLEX Qty: 100 5RF Dose Instruction: USE WITH lantus Rx Instructions: USE WITH lantus ([facility] diabetic shoes See Rx Instructions .Route .MEDSUPPLY Qty: 1 0RF Rx Instructions: Please include 3 inserts Lasix 40 mg tablet 40 mg PO DAILY Qty: 30 0RF potassium chloride 20 mEq tablet,ER particles/crystals 20 meq PO QAM Qty: 30 0RF losartan 25 mg tablet 25 mg PO DAILY Qty: 30 0RF hydroxyzine HCl 25 mg tablet 25 mg PO DAILY PRN (Reason: Anxiety) Qty: 30 0RF Flovent HFA 220 mcg/actuation HFA aerosol inhaler See Rx Instructions .ROUTE .COMPLEX Qty: 12 0RF Dose Instruction: USE 2 INHALATIONS 4 TIMES DAILY NEEDED FOR SHORTNESS OF BREATH Rx Instructions: USE 2 INHALATIONS 4 TIMES DAILY NEEDED FOR SHORTNESS OF BREATH alendronate 70 mg tablet 70 mg PO Q7D Qty: 4 0RF rosuvastatin 5 mg tablet See Rx Instructions .ROUTE .COMPLEX Qty: 90 1RF Dose Instruction: TAKE 1 TABLET BY MOUTH DAILY Rx Instructions: TAKE 1 TABLET BY MOUTH DAILY clopidogrel 75 mg tablet See Rx Instructions .ROUTE .COMPLEX Qty: 30 0RF Dose Instruction: TAKE 1 TABLET BY MOUTH EVERY DAY. Must have an appointment FOR further refills Rx Instructions: TAKE 1 TABLET BY MOUTH EVERY DAY. Must have an appointment FOR further refills furosemide 40 mg tablet See Rx Instructions .ROUTE .COMPLEX Qty: 30 0RF Dose Instruction: TAKE 1 TABLET BY MOUTH EVERY DAY Rx Instructions: TAKE 1 TABLET BY MOUTH EVERY DAY insulin glargine [Lantus Solostar U-100 Insulin] 100 unit/mL (3 mL) insulin pen See Rx Instructions .ROUTE .COMPLEX Qty: 15 0RF Dose Instruction: INJECT 45 UNITS SUB-Q ONCE DAILY Rx Instructions: INJECT 45 UNITS SUB-Q ONCE DAILY sennosides-docusate sodium [Senna Plus] 8.6-50 mg Tablet 1 tab-cap PO BID PRN (Reason: Constipation) alprazolam 0.5 mg Tablet 0.25 mg PO DAILY PRN (Reason: Anxiety) nitroglycerin [Nitrostat] 0.4 mg Tablet, Sublingual 0.4 mg SUBLINGUAL Q5M PRN (Reason: Chest Pain) Rx Instructions: do not exceed 3 doses per episode docusate sodium 100 mg Capsule 100 mg PO BID PRN (Reason: Constipation) insulin aspart U-100 [Novolog FlexPen U-100 Insulin] 100 unit/mL (3 mL) Insulin Pen See Rx Instructions .ROUTE .COMPLEX Rx Instructions: per sliding scale tid *max 56 units per day* melatonin 5 mg Tablet 2.5 mg PO BEDTIME PRN (Reason: Insomnia) Narcan 4 mg/actuation [place],Non-Aerosol 1 spray INTRANASAL Q2M PRN (Reason: Opioid Overdose) Rx Instructions: spray 1 dose into ONE nostril; alternate nostrils w each dose until help arrives Tylenol 325 mg Tablet 325 mg PO Q4H PRN (Reason: Pain) aspirin 81 mg Tablet,Delayed Release (Dr/Ec) 81 mg PO QPM gabapentin 300 mg Capsule 600 mg PO BID Senna-S 8.6-50 mg tablet 1 tab-cap PO DAILY Qty: 20 0RF Referrals: Khadijah Dozier NP [Primary Care Provider] - Coding Level of Care Code 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 [facility] José Miguel
[2023-08-03 04:46] LABS: Basophils % 0.2 %; Eosinophils # 0.1 10^3/uL (0.0-0.8); Eosinophils % 0.5 %; Hematocrit 32.5 % (36-47); Lymphocytes % 5.7 %; Mean Corpuscular HGB Conc 31.7 g/dL (30-55); Mean Corpuscular Hemoglobin 29.6 pg (27-33); Mean Corpuscular Volume 93.4 fl (85-98); Monocytes # 0.6 10^3/uL (0.2-0.9); Monocytes % 3.2 %; Neutrophils # 16.07 10^3/uL (1.8-7.7); Neutrophils % 89.8 %; Nucleated Red Blood Cells % 0 %; Platelet Count 450 10^3/cmm (157-399); Red Blood Count 3.48 10^6/uL (3.85-5.65); Red Cell Distribution Width 15.2 % (12.1-15.1); White Blood Count 17.92 10^3/uL (3.29-11.43)
--- NOTE | 2023-08-03 04:48 | XRR_ITS ---
PROCEDURE INFORMATION: Exam: XR Chest Exam date and time: 08/03/2023 4:55 AM Age: 73 years old Clinical indication: Other: Leukocytosis; Additional info: Leukocytosis AMS TECHNIQUE: Imaging protocol: Radiologic exam of the chest. Views: 1 view. COMPARISON: CR XR chest 1V portable [id number] 04/03/2019 1:30 AM FINDINGS: Lungs: No CHF/pulmonary edema. Visible lungs appear essentially clear. Pleural spaces: No visible pneumothorax. No definite pleural fluid. Heart/Mediastinum: Heart size is within normal limits. Bones/joints: Chronic deformity of the proximal left humerus, possibly sequela of prior fracture. No significant change. XR/XR chest 1V portable [id number] IMPRESSION: 1. No definite pneumonia or CHF. 2. Other findings discussed above.
[2023-08-03 05:00] LABS: INR 0.99 (0.8-1.2)
--- NOTE | 2023-08-03 05:01 | PC.NURSE ---
pt rectal temp attained. 93.6, physician notified. vaughn rae placed on pt.
[2023-08-03 05:06] LABS: Lactic Sepsis W/Reflex 1.8 mmol/L (0.5-2.2)
[2023-08-03 05:08] LABS: Add Urine Microscopic? NO; Charge for UA Resulting for Rev
[2023-08-03 05:16] LABS: Alanine Aminotransferase 22 U/L (0-33); Albumin Level 3.6 g/dL (3.5-5.2); Alkaline Phosphatase 219 U/L (35-105); Anion Gap 14.2 (5-19); Aspartate Amino Transferase 38 U/L (0-32); Blood Urea Nitrogen 23 mg/dL (8-23); Calcium 9.2 mg/dL (8.5-10.5); Carbon Dioxide 27 mmol/L (22-29); Chloride 92 mmol/L (98-107); Glucose 97 mg/dL (65-115); Magnesium 2.3 mg/dL (1.7-2.3); NT Pro B Type Natriuretic Pept 267 pg/mL (0-450); Osmolality Calculated 272 mOsm/kg (285-295); Potassium 4.2 mmol/L (3.5-5.1); Sodium 129 mmol/L (136-145); Thyroid Stimulating Hormone 0.89 uIU/mL (0.27-4.20); Total Bilirubin 0.3 mg/dL (0.15-1.2); Total Protein 7.6 g/dL (6.6-8.7)
[2023-08-03 05:17] LABS: Procalcitonin 0.46 ng/mL (0-0.5)
[2023-08-03 05:19] LABS: Urine Color Light yellow (Yellow)
[2023-08-03 05:20] LABS: Bilirubin Urine Neg (Negative); Blood Urine Neg (Negative); Glucose Urine UA Norm (Normal); Ketones Urine Negative (Negative); Leukocyte Esterase Urine Negative (Negative); Nitrate Urine Negative (Negative); Protein Urine Neg (Negative); Urine Appearance Clear (CLEAR); Urobilinogen Urine Neg (Negative); pH Urine 7 (5-7)
[2023-08-03] MEDS: dextrose 10% 250 ML 1000 ML IV (05:55)
[2023-08-03 06:03] LABS: Glucose Point of Care 82 mg/dL (70-110)
--- NOTE | 2023-08-03 06:33 | ECG_ITS ---
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 Measurements Intervals [place] Rate: 83 P: 53 ID: [id number] QRS: 48 QRSD: 97 T: 65 QT: 376 QTc: 442 Interpretive Statements SINUS RHYTHM WITH SINUS ARRHYTHMIA LEFT ATRIAL ENLARGEMENT [-0.15mV P-WAVE IN V1/V2] Compared to ECG 08/03/2023 04:06:23 No significant changes Electronically Signed On 08-03-2023 17:12:55 CDT by Juaquin Rahman M.D. [email or web address]
--- NOTE | 2023-08-03 06:39 | P.HP_ITS ---
Providers/Chief Complaint 2 Primary Care Provider: Khadijah Dozier NP Chief Complaint: Hypoglycemia History of Present Illness Olga Suresh is a 73 year old female with a past medical history of CVA, insulin-dependent type 2 diabetes mellitus, history of CAD, hypertension, who presents to [facility] due to altered mental status and hypoglycemia. Currently patient is alert oriented x 3, following all commands, eating a turkey sandwich, her only complaint is itching on her chest, on her arms, a rash that she has had for the last 2 to 3 weeks, also complaining of a headache. According to patient and her daughter at bedside, she had dinner last night, she is on insulin through the alf patient is unsure exactly how much insulin she received last night but at about 2 AM her daughter was called by the alf as patient was becoming unresponsive, by the time her daughter had reached [place], Paola was in a chair slumped over, nonresponsive, she became a bit more alert with some juice according to daughter, when EMS arrived blood sugar was 49, her only other complaint is right lower extremity swelling, erythema, she is seeing Dr. Roberts for concerns for cellulitis at times, she was monitored in the ICU, blood sugars have dropped down to 82, persistently hypothermic was given D10, currently alert awake, following all commands Review of Systems 2 Const: Reports: fatigue and malaise; Denies: fever(s) Card: Denies: chest pain Resp: Denies: dyspnea GI: Denies: abdominal pain : Denies: flank pain Neuro: Denies: headache(s), numbness in extremities, dizziness or Slurred speech present Endo: Denies: polyuria Medications/Allergies Home Medications Medication Instructions Recorded Confirmed Last Taken Type lancets 30 gauge (OneTouch Delica #100 ea 12/20/19 06/15/23 Unknown Rx Lancets) pen needle, diabetic 31 gauge x ##100 11/10/21 06/15/23 Unknown Rx 06/09 (Comfort EZ Pen Beccaria) alprazolam 0.5 mg tablet 0.25 mg PO DAILY PRN Anxiety 12/19/21 06/15/23 Unknown History docusate sodium 100 mg capsule 100 mg PO BID PRN Constipation 12/19/21 06/15/23 Unknown History insulin aspart U-100 100 unit/mL See Rx Instructions .Route .COMPLEX 12/19/21 06/15/23 Unknown History (3 mL) subcutaneous pen (Novolog FlexPen U-100 Insulin aspart) melatonin 5 mg tablet 2.5 mg PO BEDTIME PRN Insomnia 12/19/21 06/15/23 Unknown History naloxone 4 mg/actuation nasal 1 spray intranasal Q2M PRN Opioid 12/19/21 06/15/23 Unknown History spray (Narcan) Overdose nitroglycerin 0.4 mg sublingual 0.4 mg sublingual Q5M PRN Chest 12/19/21 06/15/23 Unknown History tablet (Nitrostat) Pain sennosides 8.6 mg-docusate sodium 1 tab-cap PO BID PRN Constipation 12/19/21 06/15/23 Unknown History 50 mg tablet (Senna Plus) acetaminophen 325 mg tablet 325 mg PO Q4H PRN Pain 12/20/21 06/15/23 Unknown History (Tylenol) aspirin 81 mg tablet,delayed 81 mg PO QPM 12/20/21 06/15/23 Unknown History release gabapentin 300 mg capsule 600 mg PO BID 12/20/21 06/15/23 Unknown History sennosides 8.6 mg-docusate sodium 1 tab-cap PO DAILY #20 tabs 12/21/21 06/15/23 Unknown Rx 50 mg tablet (Senna-S) orthotic shoes #1 ea 01/04/22 06/15/23 Unknown Rx diabetic shoes #1 ea 02/08/22 06/15/23 Unknown Rx furosemide 40 mg tablet (Lasix) 40 mg PO DAILY #30 tabs 05/20/22 06/15/23 Unknown Rx hydroxyzine HCl 25 mg tablet 25 mg PO DAILY PRN Anxiety #30 tabs 05/20/22 06/15/23 Unknown Rx losartan 25 mg tablet 25 mg PO DAILY #30 tabs 05/20/22 06/15/23 Unknown Rx potassium chloride 20 mEq 20 meq PO QAM #30 tabs 05/20/22 06/15/23 Unknown Rx tablet,extended release(part/cryst) ferrous sulfate 325 mg (65 mg 325 mg PO DAILY 08/10/22 06/15/23 Unknown History iron) tablet (FeroSul) alendronate 70 mg tablet 70 mg PO Q7D #4 tabs 08/16/22 06/15/23 Unknown Rx fluticasone propionate 220 See Rx Instructions .Route 08/16/22 06/15/23 Unknown Rx mcg/actuation HFA aerosol inhaler .COMPLEX #12 grams (Flovent HFA) rosuvastatin 5 mg tablet See Rx Instructions .Route 08/16/22 06/15/23 Unknown Rx .COMPLEX #90 tabs clopidogrel 75 mg tablet See Rx Instructions .Route 04/25/23 06/15/23 Unknown Rx .COMPLEX #30 tabs diabetic shoes with 3 inserts #1 ea 04/25/23 06/15/23 Unknown Rx furosemide 40 mg tablet See Rx Instructions .Route 04/25/23 06/15/23 Unknown Rx .COMPLEX #30 tabs insulin glargine 100 unit/mL (3 See Rx Instructions .Route 04/25/23 06/15/23 Unknown Rx mL) subcutaneous pen (Lantus .COMPLEX #15 mL Solostar U-100 Insulin) cephalexin 500 mg capsule 500 mg PO TID #21 caps 05/19/23 06/15/23 Unknown Rx Allergies Allergy/AdvReac Type Severity Reaction Status Date / Time simvastatin Allergy leg cramps Verified 06/15/23 13:13 PFSH Acute 2 PFSH: Medical History Vaginal prolapse Aftercare following surgery of the genitourinary system Enrolled in chronic care management Cough Chronic pain syndrome Dyslipidemia History of TIA (transient ischemic attack) and stroke Hypertension CAD (coronary artery disease) LAD stent 2004 & 2008, last mibi stress test 02/12 was negative for ischemia but showed scarring. Generalized anxiety disorder Type 2 diabetes mellitus (~07/02/19) Surgical History History of colpocleisis 03/17/2021- colpocleisis Lefort procedure, performed by Dr. Adler at [facility] H/O heart artery stent History of appendectomy History of tubal ligation Family History Father CAD (coronary artery disease) Lung disease Sister CAD (coronary artery disease) Cancer Chronic kidney disease (CKD) Diabetes Breast cancer onset unknown Colon cancer age onset unknown Brother CAD (coronary artery disease) Cancer Diabetes Hypertension Hyperlipidemia Colon cancer age onset unknown Mother Stroke Thyroid disease Other Heart disease Denies family history of Ovarian cancer Dementia Suicide Uterine cancer Social History Substance/Drug Use: never Vitals/I&O/Wt Last Vital Signs Temp 94.6 F L 08/03/23 05:14 Pulse 70 08/03/23 05:30 Resp 12 08/03/23 06:00 BP 138/79 08/03/23 06:00 Pulse Ox 98 08/03/23 06:00 O2 Del Method Room Air 08/03/23 06:00 08/02/23 08/02/23 08/03/23 14:59 22:59 06:59 Intake Total 250 / 250 Balance 250 / 250 Weight last 48 hrs Weight 77.111 kg Physical Exam 2 Const: COMMON NORMALS: no acute distress and patient oriented x3 HENMT: COMMON NORMALS: normocephalic HEAD & SCALP: normocephalic Eye: COMMON NORMALS: Equal, round and reactive pupils present and EOMs intact bilaterally Neck/C-Spine: COMMON NORMALS: no JVD Lymph: LYMPHATIC: no lymphadenopathy noted Resp: COMMON NORMALS: normal respiratory effort, No retractions, No use of accessory muscles and clear to auscultation bilaterally AUSCULTATION: clear to auscultation bilaterally Cardio: COMMON NORMALS: no JVD, regular rate, regular rhythm, S1 normal heart sound present and S2 normal heart sound present RATE: regular rate RHYTHM: regular rhythm HEART SOUNDS: S1 normal heart sound present and S2 normal heart sound present GI: COMMON NORMALS: Normal to inspection, nondistended, normoactive bowel sounds present, Soft to palpation and non-tender Extremity: COMMON NORMALS: no calf tenderness and no pedal edema Neuro: COMMON NORMALS: patient oriented x3, CN's II-XII intact bilaterally and moves all extremities Psych: COMMON NORMALS: mental status grossly normal Skin: NARRATIVE SKIN EXAM: - Extensive candidiasis under bilateral breast,, under skin fold, -Has a erythematous, macular rash, well- defined borders, round, throughout her back, chest bilateral arms bilateral legs -Right lower extremity, area of erythema , swelling, slight tenderness slight warmth Data 08/03/23 04:42 08/03/23 04:42 A&P Assessment and plan (1) Cellulitis: (2) Candidiasis of breast: (3) Rash: (4) Hypoglycemia: (5) Hypothermia: (6) Leukocytosis: (7) Hyponatremia: Plan Hypoglycemia -Likely secondary to insulin therapy -Will have to call the alf in the morning and clarify how much insulin she received last night, how much glargine she received last night -No evidence of UTI, no evidence of pneumonia, -She does have cellulitis right lower extremity -Will order troponin series -Every hour blood sugars -Hypoglycemia protocol Hypothermia -Likely second hypoglycemia -Active rewarming Leukocytosis ? Possibly reactive from hypothermia, hypoglycemia ? Component related to cellulitis Right lower extremity cellulitis -Will treat with vancomycin, cefepime -Can quickly de-escalate to p.o. antibiotics based on clinical progress -Will order venous ultrasound for DVT Candidiasis ? Has extensive candidiasis under bilateral breasts, under pannus -Start IV Diflucan -Also topical nystatin Rash -Diffuse, maculopapular, erythematous, pruritic rash -She has been treated by alf for permethrin, -This has been persistent for the last 3weeks, she had it before she went into the alf 2 weeks ago -It almost looks like bedbugs, however she denies being exposed to bedbugs, has been at the alf for the last 2 weeks -Will try steroids to see if it is responsive ? Keep under isolation Bilateral lower extremity edema ? 1 dose IV Lasix Altered mental status ? Likely sec to hypoglycemia hypothermia ? Currently back to baseline according to daughter ? Continue neurochecks, aspiration precautions, History of CVA continue aspirin, Plavix Patient is DNR/DNI, confirmed this with patient multiple times daughter at bedside ? Lovenox for DVT prophylaxis Attestations 2 Medical Necessity Statement*: Patient requires hospitalization, outpatient with observation, for hyponatremia, leukocytosis, cellulitis, hypoglycemia, hypothermia Diagnoses Cellulitis L03.90 Candidiasis of breast B37.89 Rash R21 Hypoglycemia E16.2 Hypothermia T68.XXXA Leukocytosis D72.829 Hyponatremia E87.1
--- NOTE | 2023-08-03 06:41 | USCV_ITS ---
Olga Suresh Age: 73 Gender: F : 1950 Exam Date: 08/03/2023 06:50 Ordering Phys: Buck Herbert MD Technologist: JOSE [place] [facility] [place]: BLE SWELLING HISTORY: Lower extremity swelling. PROCEDURES: Venous duplex imaging was performed in bilateral lower extremities. The following venous structures were evaluated: common femoral vein, profunda vein, proximal portion of the greater saphenous vein, superficial femoral vein, and the popliteal vein. In addition, the posterior tibial and peroneal trunk were evaluated. Serial compression, augmentation maneuvers, and spectral Doppler flow evaluation were performed. FINDINGS: Normal 2-D Doppler and augmentation and compressibility throughout the lower extremity venous structures. Additional imaging through the proximal calf veins also reveals no thrombus. Limited evaluation of the greater saphenous vein is patent with no thrombus. CONCLUSIONS No DVT bilateral lower extremities. Dr. Danitza Petty DO (Electronically Signed) Final Date: 03 Aug 2023 08:06 S
--- NOTE | 2023-08-03 07:02 | PC.NURSE ---
Glucose check @0700: 182 via fingerstick. pt alert to name, place at this time, unable to answer situation.
[2023-08-03 07:03] LABS: Glucose Point of Care 172 mg/dL (70-110)
[2023-08-03 07:03] LABS: Glucose Point of Care 181 mg/dL (70-110)
[2023-08-03 07:09] LABS: Troponin(5th) Baseline 14 ng/L (0-10)
--- NOTE | 2023-08-03 07:11 | PC.NURSE ---
Patient status: during nurse rounds patient did not have rossi hugger on, rectal temp currently 97.8.
[2023-08-03 07:14] LABS: C Reactive Protein 9.7 mg/L (0.0-4.9)
--- NOTE | 2023-08-03 07:37 | PC.NURSE ---
Report called to Martina in ICU, no further questions verbalized at end of report.
[2023-08-03 07:43] LABS: Glucose Point of Care 100 mg/dL (70-110)
[2023-08-03 07:55] LABS: Troponin 5 2HR 12.96 ng/L (0-10); Troponin 5 2HR Delta -1.04 ABS# (0-10)
--- NOTE | 2023-08-03 07:55 | PC.NURSE ---
Addendum entered by Martina Almanzar RN 08/03/23 10:23: Paulina russell with patient. Her temp is 98.7 orally upon arrival to ICU. Original Note: Pt arrives to ICU from ED fully dressed. Excessive speech and cinfusion noted. Pt alert to self. She also knows she is in some ric of hospital or Dr Office. Bug bites and/or tiny scratched areas noted across her extremities.
--- NOTE | 2023-08-03 07:57 | PC.NURSE ---
Pt glucose update: pt glucose @0701 was 181 @0739 glucose 100. this nurse notified Martina in ICU, no further concerns verbalized.
[2023-08-03 08:02] LABS: Chol HDL Ratio 2.11 mg/dL (0.0-4.40); Cholesterol 148 mg/dL (0-200); HDL Cholesterol 70 mg/dL (60-100); LDL Cholesterol Calculated 65 mg/dL (50-129); LDL HDL Ratio 0.93 RATIO (0.00-3.22); Triglycerides 63 mg/dL (0-150)
[2023-08-03 08:28] LABS: Glucose Point of Care 80 mg/dL (70-110)
[2023-08-03 08:39] LABS: Estmated Average Glucose 108; Hemoglobin A1C 5.4 % (4.0-6.0)
[2023-08-03] MEDS: gabapentin 300 mg Capsule 600 MG PO ×2 (08:51→17:22)
[2023-08-03] MEDS: clopidogrel 75 mg Tablet PO (08:51)
[2023-08-03] MEDS: nystatin powder 15 gm Btl 1 APPLIC TOPICAL ×2 (08:52→17:22)
[2023-08-03] MEDS: enoxaparin 40 mg/0.4 mL Syringe SUBCUT (09:00)
[2023-08-03] MEDS: pantoprazole 40 mg SDV IVP (09:02)
[2023-08-03] MEDS: fluconazole premix 100 MG in empty flexible container 1 EACH 50 MG IV (09:04)
[2023-08-03] MEDS: cefepime 1,000 MG in sodium chloride 0.9% (plus) 50 ML 100 MG IV ×2 (09:04→20:22)
[2023-08-03] MEDS: FUROsemide 10 mg/mL SDV 4mL 40 MG IVP (09:14)
[2023-08-03] MEDS: methylPREDNISolone sod succ 125 mg/2 mL INJ IVP (09:15)
[2023-08-03] MEDS: acetaminophen 325 mg Tablet 650 MG PO ×2 (09:20→20:23)
[2023-08-03] MEDS: ALPRAZolam 0.5 mg Tablet 0.25 MG PO (09:21)
[2023-08-03] MEDS: vancomycin 1,250 MG/250 ML PIGGYBACK 250 MG IV (09:27)
--- NOTE | 2023-08-03 10:42 | PC.NURSE ---
NIH: pt has had a previous CVA, she at times, will use her left arm to hold up her right arm for BP cuff adjustment. She deflects her orientation questions of month and age. She can tell you her date. 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
[2023-08-03 11:32] LABS: Glucose Point of Care 72 mg/dL (70-110)
--- NOTE | 2023-08-03 12:29 | ECG_ITS ---
[facility] Test Date: 2023-08-03 Pat Name: Olga Suresh Department: Room: [facility] Gender: Female Dump Attendant: : 1950 Requested By: Buck Herbert Order Number: [id number] Macey MD: Juaquin Rahman M.D. Measurements Intervals [place] Rate: 84 P: 41 AK: 120 QRS: 44 QRSD: 101 T: 57 QT: 388 QTc: 459 Interpretive Statements SINUS RHYTHM POSSIBLE LEFT ATRIAL ENLARGEMENT [-0.1mV P-WAVE IN V1/V2] Compared to ECG 08/03/2023 07:06:31 Sinus arrhythmia no longer present Electronically Signed On 08-03-2023 17:20:17 CDT by Juaquin Rahman M.D. [id number]
[2023-08-03 13:43] LABS: Glucose Point of Care 212 mg/dL (70-110)
--- NOTE | 2023-08-03 14:12 | PC.NURSE ---
SCDs and accu checks; SCDs not applied as of yet, pt is impulsive, had Lasix and is making frequent trips to BS. At this time more of a fall risk. DR Beth notified of this, okay'd. He was also notified of 2 acccu check orders. Just to keep ACHS, can discontinued the hourly checks.
[2023-08-03 17:10] LABS: Glucose Point of Care 380 mg/dL (70-110)
[2023-08-03] MEDS: aspirin 81 mg EC Tablet PO (17:22)
--- NOTE | 2023-08-03 17:39 | PC.NURSE ---
Shift summary: pt alert to self and know she is in hospital. She deflects other questions. She praises her grown kids while they are at bedside. As soon a they are out of sight she expresses frustration with them, they think they just know everything , wants to know why they just went off and left her. She has obsessed about her shoes and pants today, incessantly asking where they are, I know I had them here , I have been looking for my pure and shoes . She scratches/digs at her skin almost constantly while her eyes are open. She has nodded off for a couple briefly intervals of about 15 minutes. Several of the little sores are open and bled from the scratching. Nystatin has been applied to the area between her breasts, her groin and her fifth toe on the right after cleansing each area. The breast area had a foul yeasty odor upon her arrival to ICU. She picks, fidgets and readjusts the monitoring cables, stuff on the beside table and blankets very frequently. She picked out her first IV on her left wrist. It took several attempts with US to obtain left FA IV. She is somewhat re-directable but she will start arguing and saying she knows with staff explanations. She has used the BSC today, after the Lasix admin it was nearly every 10 minutes she needed to be up for about an hour. it has slowed down this afternoon. 2700ml of clear yellow urine output. No BM. She did complain of a headache this am, Acetaminophen admin, no further complaints of headaches.
--- NOTE | 2023-08-03 19:38 | P.PN_ITS ---
Subjective 2 Subjective: She has had a quite extensive rash under her breast, in her groin, as well as lichenized pruritic area at dorsal R foot, small ulcer under left fifth toe. As well as some generalized pruritus which she continues scratching with multiple excoriations on her body. She is not a good historian but does interact, does care for review of systems. Vitals/I&O/Wt Last Vital Signs Temp 98.3 F 08/03/23 16:00 Pulse 94 08/03/23 16:45 Resp 24 H 08/03/23 16:45 BP 158/76 08/03/23 16:45 Pulse Ox 99 08/03/23 16:45 O2 Del Method Room Air 08/03/23 16:45 08/03/23 08/03/23 08/03/23 06:59 14:59 22:59 Intake Total 250 / 250 1050 / 1050 1100 / 2150 Output Total 2250 / 2250 700 / 2950 Balance 250 / 250 -1200 / -1200 400 / -800 Weight last 48 hrs Weight 66.905 kg Weight 77.111 kg Physical Exam 2 Const: COMMON NORMALS: alert GENERAL APPEARANCE: cooperative O RIENTATION/CONSCIOUSNESS: Yes awake HENMT: COMMON NORMALS: oropharynx normal Neck/C-Spine: COMMON NORMALS: no JVD Resp: COMMON NORMALS: normal respiratory effort and clear to auscultation bilaterally AUSCULTATION: clear to auscultation bilaterally Cardio: COMMON NORMALS: no JVD, regular rhythm, S1 normal heart sound present, S2 normal heart sound present and No murmurs present (Cardio) RHYTHM: regular rhythm HEART SOUNDS: S1 normal heart sound present and S2 normal heart sound present GI: COMMON NORMALS: Normal to inspection, nondistended, normoactive bowel sounds present, Soft to palpation and non-tender PALPATION: Yes Soft to palpation Extremity: COMMON NORMALS: no joint enlargement and no pedal edema Neuro: COMMON NORMALS: moves all extremities SENSORIUM/ORIENTATION: Yes alert Skin: COMMON NORMALS: no rashes or lesions noted NARRATIVE SKIN EXAM: Diffuse small round excoriations on her legs, trunk, back where she can reach. GENERAL SKIN EXAM: no rashes or lesions noted OTHER: Lichenized to area of dorsal right foot. Small shallow ulceration without subcutaneous tissue exposure under left fourth/fifth toes. Data 08/03/23 04:42 08/03/23 04:42 Micro: Microbiology 08/03/23 07:26 Blood Culture - Preliminary Blood SPECIMEN COLLECTED 08/03/23 07:19 Blood Culture - Preliminary Blood SPECIMEN COLLECTED A&P Assessment and plan (1) Cellulitis: (2) Candidiasis of breast: (3) Rash: (4) Hypoglycemia: (5) Hypothermia: (6) Leukocytosis: (7) Hyponatremia: Plan Hypoglycemia: Reviewed glucose, reviewed A1c. A1c 5.4. Glucose with improvement. Continue to hold insulin. Reassess Accu-Cheks. Can move out of ICU. Discussed with nursing and keycase assembler. Hypothermia: Improving, initially after receiving, subsequently with blankets. Reviewed TSH, normal. Hypoglycemia improving. Hold insulin. Can move out of ICU. -Likely second hypoglycemia Leukocytosis: Reviewed CBC, repeat CBC requested. Reviewed UA, chest x-ray, venous duplex. ? Possibly reactive from hypothermia, hypoglycemia ? Component related to cellulitis Right lower extremity cellulitis Continue vancomycin, cefepime. Monitor for risk of encephalopathy with cefepime, risk of kidney injury with vancomycin. Reassess kidney function. Venous Doppler ultrasound reviewed, no DVT. Candidiasis: On Diflucan. Continue. Extensive candidiasis including under breasts, pannus, groins., Continue topical nystatin For possible tinea cruris, possibly diffuse candidal infection. Changed to itraconazole. Risk of interaction statin. Hold. Risk of interaction with alprazolam. Hold. Rash: Diffuse excoriations. Was treated with permethrin at long term. Possibly fungal origin?, Changed to itraconazole from Diflucan, nystatin. -Diffuse, maculopapular, erythematous, pruritic rash -She has been treated by long term for permethrin, -This has been persistent for the last 3weeks, she had it before she went into the long term 2 weeks ago -It almost looks like bedbugs, however she denies being exposed to bedbugs, has been at the long term for the last 2 weeks -Will try steroids to see if it is responsive ? Keep under isolation Bilateral lower extremity edema: Robust urine output. Hold further Lasix. Reassess volume status. ? 1 dose IV Lasix Altered mental status:improved. Reported underlying dementia. Maintain fall precautions. ? Likely sec to hypoglycemia hypothermia ? Currently back to baseline according to daughter ? Continue neurochecks, aspiration precautions, History of CVA continue aspirin, Plavix Patient is DNR/DNI, confirmed this with patient multiple times daughter at bedside ? Lovenox for DVT prophylaxis Attestations 2 Medical Necessity Statement*: Continue admission for assessment management of hypoglycemia, cellulitis complicating fungal infection. and High MDM includes amount and/or complexity of data reviewed/ordered [ resulted lab(s)/test(s), ordered lab(s)/test(s) and other healthcare professional discussion] and described risk of complication, morbidity or mortality of management as documented Diagnoses Cellulitis L03.90 Candidiasis of breast B37.89 Rash R21 Hypoglycemia E16.2 Hypothermia T68.XXXA Leukocytosis D72.829 Hyponatremia E87.1
[2023-08-03 23:57] LABS: Glucose Point of Care 178 mg/dL (70-110)
[2023-08-04] VITALS (25 sets, daily range): BP systolic 101–152; BP diastolic 47–67; PULSE 74–91; RESP 11–18; TEMP 36.8–37; O2SAT 94–100
--- NOTE | 2023-08-04 05:18 | PC.NURSE ---
Report was given to Devika MALIK in [facility]. Patient transferred to [facility] without any complications.
[2023-08-04 05:27] LABS: Basophils % 0.2 %; Hematocrit 31.3 % (36-47); Lymphocytes # 1.1 10^3/uL (0.8-4.8); Lymphocytes % 9.8 %; Mean Corpuscular HGB Conc 31.3 g/dL (30-55); Mean Corpuscular Volume 92.6 fl (85-98); Mean Platelet Volume 9.6 fL (7.4-10.4); Monocytes # 0.5 10^3/uL (0.2-0.9); Monocytes % 4.3 %; Neutrophils # 9.45 10^3/uL (1.8-7.7); Neutrophils % 85.2 %; Nucleated Red Blood Cells % 0 %; Platelet Count 447 10^3/cmm (157-399); Red Blood Count 3.38 10^6/uL (3.85-5.65); Red Cell Distribution Width 15.1 % (12.1-15.1)
[2023-08-04 05:50] LABS: Alanine Aminotransferase 21 U/L (0-33); Albumin Level 3.6 g/dL (3.5-5.2); Alkaline Phosphatase 200 U/L (35-105); Anion Gap 14.6 (5-19); Aspartate Amino Transferase 29 U/L (0-32); Blood Urea Nitrogen 27 mg/dL (8-23); Calcium 9.3 mg/dL (8.5-10.5); Carbon Dioxide 27 mmol/L (22-29); Chloride 95 mmol/L (98-107); Globulin 3.8 g/dL (1.3-4.6); Glucose 128 mg/dL (65-115); Osmolality Calculated 281 mOsm/kg (285-295); Potassium 4.6 mmol/L (3.5-5.1); Sodium 132 mmol/L (136-145); Total Bilirubin 0.2 mg/dL (0.15-1.2); Total Protein 7.4 g/dL (6.6-8.7)
[2023-08-04 06:34] LABS: Glucose Point of Care 160 mg/dL (70-110)
[2023-08-04] MEDS: enoxaparin 40 mg/0.4 mL Syringe SUBCUT (06:34)
[2023-08-04] MEDS: pantoprazole 40 mg SDV IVP (06:34)
[2023-08-04] MEDS: cefepime 1,000 MG in sodium chloride 0.9% (plus) 50 ML 100 MG IV (06:34)
[2023-08-04] MEDS: gabapentin 300 mg Capsule 600 MG PO (08:17)
[2023-08-04] MEDS: vancomycin 1,250 MG/250 ML PIGGYBACK 250 MG IV (08:18)
[2023-08-04] MEDS: clopidogrel 75 mg Tablet PO (08:18)
[2023-08-04 11:51] LABS: Glucose Point of Care 103 mg/dL (70-110)
--- NOTE | 2023-08-04 12:33 | P.DS_ITS ---
Discharge Providers Date of Admission: 08/03/23 06:40 Date of Discharge: August 04, 2023 Attending Provider at Admission: Buck Herbert MD Attending Provider at Discharge: Silvestre Beth Primary Care Provider: Khadijah Dozier NP Diagnoses at Discharge Discharge Diagnosis (1) Cellulitis: Status: Acute (2) Candidiasis of breast: Status: Acute (3) Rash: Status: Acute (4) Hypoglycemia: Status: Acute (5) Hypothermia: Status: Acute (6) Leukocytosis: Status: Acute (7) Hyponatremia: Status: Acute Reason for Visit Reason for Visit: Hypoglycemia Brief History: Olga Suresh is a 73 year old female with a past medical history of CVA, insulin-dependent type 2 diabetes mellitus, history of CAD, hypertension, who presents to [facility] due to altered mental status and hypoglycemia. Currently patient is alert oriented x 3, following all commands, eating a turkey sandwich, her only complaint is itching on her chest, on her arms, a rash that she has had for the last 2 to 3 weeks, also complaining of a headache. According to patient and her daughter at bedside, she had dinner last night, she is on insulin through the [facility] patient is unsure exactly how much insulin she received last night but at about 2 AM her daughter was called by the [facility] as patient was becoming unresponsive, by the time her daughter had reached [place], [place] was in a chair slumped over, nonresponsive, she became a bit more alert with some juice according to daughter, when EMS arrived blood sugar was 49, her only other complaint is right lower extremity swelling, erythema, she is seeing Dr. Roberts for concerns for cellulitis at times, she was monitored in the ICU, blood sugars have dropped down to 82, persistently hypothermic was given D10, currently alert awake, following all commands Hospital Course Hospital Course Long-acting insulin was held, he was maintained on hypoglycemia protocol, actively rewarmed initially, subsequently passively, mental status improved. Hypoglycemia and suspected secondary hypothermia resolved. She was treated with antibiotic for suspected cellulitis with empiric antibiotic with cefepime and vancomycin, additionally Diflucan was added due to extensive intertrigo, under breasts, in the groin. Possible tinea corporis/cruris. Additionally with diffuse pruritus, excoriations with scratching. Switched to itraconazole. Continues with oral antifungal for now given extent of the rashes. Small ulceration noted under the left fourth and fifth toes. Additional area of excoriation/localization, some cellulitis on the dorsal right foot/distal lower extremity. On presentation was having some lower extremity edema as well, received a dose of diuretic IV and responded well with diuresis, edema resolved. Cellulitis is resolving. She otherwise remains awake and alert, back to baseline mental status. Maintaining temperature, maintain glucose. Long-acting insulin is discontinued at discharge, continue to monitor glucose, sliding scale insulin as per blood glucose, if starting long-acting insulin, start low and increase slowly depending on response. She is referred for additional assessment by dermatology due to diffuse pruritus, excoriations. She had been previously treated for possible scabies, but without improvement, and presentation not typical of scabies. Does not have mucosal lesions to suggest [place]-Abbe syndrome, however, in case gabapentin is contributing, dose is lowered down to 100 mg twice daily. Consider de- escalating entirely and stopping. Physical Exam Narrative: Accompanied by her daughter. Const: COMMON NORMALS: alert GENERAL APPEARANCE: cooperative ORIENTATION/CONSCIOUSNESS: Yes awake HENMT: COMMON NORMALS: oropharynx normal Neck/C-Spine: COMMON NORMALS: no JVD Resp: COMMON NORMALS: normal respiratory effort and clear to auscultation bilaterally AUSCULTATION: clear to auscultation bilaterally Cardio: COMMON NORMALS: no JVD, regular rhythm, S1 normal heart sound present, S2 normal heart sound present and No murmurs present (Cardio) RHYTHM: regular rhythm HEART SOUNDS: S1 normal heart sound present and S2 normal heart sound present GI: COMMON NORMALS: Normal to inspection, nondistended, normoactive bowel sounds present, Soft to palpation and non-tender PALPATION: Yes Soft to palpation Extremity: COMMON NORMALS: no joint enlargement and no pedal edema Neuro: COMMON NORMALS: moves all extremities SENSORIUM/ORIENTATION: Yes alert Skin: COMMON NORMALS: no rashes or lesions noted NARRATIVE SKIN EXAM: Diffuse small round excoriations on her legs, trunk, back where she can reach. GENERAL SKIN EXAM: no rashes or lesions noted OTHER: Lichenized to area of dorsal right foot. Small shallow ulceration without subcutaneous tissue exposure under left fourth/fifth toes. Discharge Data Studies Completed and Pending Completed Studies During Hospitalization Category Date Time Status CT head wo con* [id number] Stat Cat Scan 08/03/23 04:08 Completed XR chest 1V portable [id number] Stat Exams 08/03/23 04:48 [place] [id number] Stat Ultrasound 08/03/23 06:41 Completed Pending at discharge Category Date Time Status Blood Culture Stat Lab 08/03/23 07:26 Results Complete Blood Count w/Auto AM LABS Lab 08/05/23 04:00 Ordered Complete Blood Count w/Auto AM LABS Lab 08/06/23 04:00 Ordered Comprehensive Metabolic Panel AM LABS Lab 08/05/23 04:00 Ordered Comprehensive Metabolic Panel AM LABS Lab 08/06/23 04:00 Ordered SARS Covid-2 Antigen Stat Lab 08/04/23 12:08 Ordered Radiology Impressions Head CT 08/03/23 04:08 IMPRESSION: 1. No acute intracranial hemorrhage or mass effect. 2. Changes of microvascular disease. 3. No definite acute infarct by CT, see above. 4. Other findings discussed above. Chest X-Ray 08/03/23 04:48 IMPRESSION: 1. No definite pneumonia or CHF. 2. Other findings discussed above. Laboratory Results WBC 11.10 10^3/uL (3.29-11.43) 08/04/23 04:59 RBC 3.38 10^6/uL (3.85-5.65) L 08/04/23 04:59 Hgb 9.80 g/dL (11.27-16.99) L 08/04/23 04:59 Hct 31.3 % (36-47) L 08/04/23 04:59 MCV 92.6 fl (85-98) 08/04/23 04:59 MCH 29.0 pg (27-33) 08/04/23 04:59 MCHC 31.3 g/dL (30-55) 08/04/23 04:59 RDW 15.1 % (12.1-15.1) 08/04/23 04:59 Plt Count 447 10^3/cmm (157-399) H 08/04/23 04:59 MPV 9.6 fL (7.4-10.4) 08/04/23 04:59 Neut % (Auto) 85.2 % 08/04/23 04:59 Lymph % (Auto) 9.8 % 08/04/23 04:59 [place] % (Auto) 4.3 % 08/04/23 04:59 Eos % (Auto) 0.0 % 08/04/23 04:59 Baso % (Auto) 0.2 % 08/04/23 04:59 Neut # (Auto) 9.45 10^3/uL (1.8-7.7) H 08/04/23 04:59 Lymph # (Auto) 1.1 10^3/uL (0.8-4.8) 08/04/23 04:59 [place] # (Auto) 0.5 10^3/uL (0.2-0.9) 08/04/23 04:59 Eos # (Auto) 0.0 10^3/uL (0.0-0.8) 08/04/23 04:59 Baso # (Auto) 0.0 10^3/uL (0.0-0.1) 08/04/23 04:59 Nucleated RBC % (auto) 0 % 08/04/23 04:59 Nucleated RBCs # 0.0 /100WBC 08/04/23 04:59 PT 13.40 SECONDS (12.1-14.9) 08/03/23 04:42 INR 0.99 (0.8-1.2) 08/03/23 04:42 Sodium 132 mmol/L (136-145) L 08/04/23 04:59 Potassium 4.6 mmol/L (3.5-5.1) 08/04/23 04:59 Chloride 95 mmol/L (98-107) L 08/04/23 04:59 Carbon Dioxide 27 mmol/L (22-29) 08/04/23 04:59 Anion Gap 14.6 (5-19) 08/04/23 04:59 BUN 27 mg/dL (8-23) H 08/04/23 04:59 Creatinine 1.0 mg/dL (0.5-0.9) H 08/04/23 04:59 GFR Calculation Not Reportable 08/04/23 04:59 Glucose 128 mg/dL (65-115) H 08/04/23 04:59 POC Glucose 103 mg/dL (70-110) 08/04/23 11:31 Estimat Average Glucose 108 08/03/23 04:42 Hemoglobin A1c 5.4 % (4.0-6.0) 08/03/23 04:42 Calculated Osmolality 281 mOsm/kg (285-295) L 08/04/23 04:59 Lactic Acid 1.8 mmol/L (0.5-2.2) 08/03/23 04:42 Calcium 9.3 mg/dL (8.5-10.5) 08/04/23 04:59 Magnesium 2.3 mg/dL (1.7-2.3) 08/03/23 04:42 Total Bilirubin 0.2 mg/dL (0.15-1.2) 08/04/23 04:59 AST 29 U/L (0-32) 08/04/23 04:59 ALT 21 U/L (0-33) 08/04/23 04:59 Alkaline Phosphatase 200 U/L (35-105) H 08/04/23 04:59 Troponin T Baseline 14 ng/L (0-10) H 08/03/23 04:42 Troponin T 120 Minute 12.96 ng/L (0-10) H 08/03/23 07:19 Delta Troponin T -1.04 ABS# (0-10) L 08/03/23 07:19 Troponin T Hi Sens 6Hr 14.30 ng/L (0-10) H 08/03/23 10:41 Troponin T Hi Sens 6Hr Delta 0.30 ng/L (0-12) 08/03/23 10:41 C-Reactive Protein 9.7 mg/L (0.0-4.9) H 08/03/23 04:42 NT-Pro-B Natriuret Pep 267 pg/mL (0-450) 08/03/23 04:42 Total Protein 7.4 g/dL (6.6-8.7) 08/04/23 04:59 Albumin 3.6 g/dL (3.5-5.2) 08/04/23 04:59 Globulin 3.8 g/dL (1.3-4.6) 08/04/23 04:59 Triglycerides 63 mg/dL (0-150) 08/03/23 04:42 Cholesterol 148 mg/dL (0-200) 08/03/23 04:42 LDL Cholesterol, Calc 65 mg/dL (50-129) 08/03/23 04:42 HDL Cholesterol 70 mg/dL (60-100) 08/03/23 04:42 LDL/HDL Ratio 0.93 RATIO (0.00-3.22) 08/03/23 04:42 Cholesterol/HDL Ratio 2.11 mg/dL (0.0-4.40) 08/03/23 04:42 Procalcitonin 0.46 ng/mL (0-0.5) 08/03/23 04:42 TSH 0.89 uIU/mL (0.27-4.20) 08/03/23 04:42 Urine Color Light yellow (Yellow) 08/03/23 05:00 Urine Appearance Clear (CLEAR) 08/03/23 05:00 Urine pH 7 (5-7) 08/03/23 05:00 Ur Specific [place] 1.010 (1.005-1.030) 08/03/23 05:00 Urine Protein Neg (Negative) 08/03/23 05:00 Urine Glucose (UA) Norm (Normal) 08/03/23 05:00 Urine Ketones Negative (Negative) 08/03/23 05:00 Urine Blood Neg (Negative) 08/03/23 05:00 Urine Nitrate Negative (Negative) 08/03/23 05:00 Urine Bilirubin Neg (Negative) 08/03/23 05:00 Urine Urobilinogen Neg mg/dL (Negative) 08/03/23 05:00 Ur Leukocyte Esterase Negative (Negative) 08/03/23 05:00 Vitals Last Vital Signs Temp 98.3 F 08/04/23 12:00 Pulse 74 08/04/23 12:00 Resp 16 08/04/23 12:00 BP 114/67 08/04/23 12:00 Pulse Ox 97 08/04/23 12:00 O2 Del Method Room Air 08/04/23 12:00 Discharge Plan Discharge Patient Disposition: Xfer SNF Condition: Stable Prescriptions: New itraconazole 100 mg Capsule 100 mg PO DAILY@1800 12 Days Qty: 12 0RF cephalexin 500 mg capsule 500 mg PO BID 4 Days Qty: 8 0RF Novolog FlexPen U-100 Insulin 100 unit/mL (3 mL) insulin pen See Rx Instructions .ROUTE .COMPLEX Qty: 15 0RF Rx Instructions: ACHS Glucose: 141-180 - 2 units 181-220 - 3 221-260 - 4 261-300 - 5 301-350 - 6 351-400 - 7 >400 - 8 units hydroxyzine pamoate 25 mg capsule 25 mg PO Q8H PRN (Reason: itching) Qty: 20 0RF gabapentin 100 mg capsule 100 mg PO BID Qty: 60 0RF Continued (DME) orthotic shoes custom See Rx Instructions .Route .MEDSUPPLY Qty: 1 0RF Rx Instructions: As directed ([facility]) diabetic shoes with 3 inserts See Rx Instructions .Route .MEDSUPPLY Qty: 1 0RF Rx Instructions: As directed to the shoe guys ([facility]) lancets [OneTouch Delica Lancets] 30 gauge misc See Rx Instructions .ROUTE .MEDSUPPLY Qty: 100 0RF Rx Instructions: test daily as needed ([facility]) pen needle, diabetic [Comfort EZ Pen [place]] 31 gauge x 3/16 needle See Rx Instructions .ROUTE .COMPLEX Qty: 100 5RF Dose Instruction: USE WITH lantus Rx Instructions: USE WITH lantus ([facility]) diabetic shoes See Rx Instructions .Route .MEDSUPPLY Qty: 1 0RF Rx Instructions: Please include 3 inserts potassium chloride 20 mEq tablet,ER particles/crystals 20 meq PO QAM Qty: 30 0RF rosuvastatin 5 mg tablet See Rx Instructions .ROUTE .COMPLEX Qty: 90 1RF Dose Instruction: TAKE 1 TABLET BY MOUTH DAILY Rx Instructions: TAKE 1 TABLET BY MOUTH BEDTIME clopidogrel 75 mg tablet See Rx Instructions .ROUTE .COMPLEX Qty: 30 0RF Dose Instruction: TAKE 1 TABLET BY MOUTH EVERY DAY. Must have an appointment FOR further refills Rx Instructions: TAKE 1 TABLET BY MOUTH EVERY DAY. Must have an appointment FOR further refills hydralazine 25 mg tablet 25 mg PO BEDTIME fluticasone propionate 220 mcg/actuation HFA aerosol inhaler 1 puff INHALATION BID aripiprazole 5 mg tablet 5 mg PO DAILY memantine 5 mg tablet 5 mg PO BID nitroglycerin [Nitrostat] 0.4 mg Tablet, Sublingual 0.4 mg SUBLINGUAL Q5M PRN (Reason: Chest Pain) Rx Instructions: do not exceed 3 doses per episode naloxone [Narcan] 4 mg/actuation [place],Non-Aerosol 1 spray INTRANASAL Q2M PRN (Reason: Opioid Overdose) Rx Instructions: spray 1 dose into ONE nostril; alternate nostrils w each dose until help arrives acetaminophen [Tylenol] 325 mg Tablet 650 mg PO Q6H PRN (Reason: Pain) gabapentin 300 mg Capsule 600 mg PO TID Changed Lasix 40 mg tablet 40 mg PO DAILY PRN (Reason: Edema) Qty: 30 0RF Discontinued losartan 25 mg tablet 25 mg PO DAILY Qty: 30 0RF insulin glargine [Lantus Solostar U-100 Insulin] 100 unit/mL (3 mL) insulin pen See Rx Instructions .ROUTE .COMPLEX Qty: 15 0RF Dose Instruction: INJECT 45 UNITS SUB-Q ONCE DAILY Rx Instructions: INJECT 45 UNITS SUB-Q ONCE BEDTIME Discharge Orders: Discharge Order (Routine); Ordered 08/04/23 Ordered By: Silvestre Beth Referrals: Dermatology [facility] [Provider Group] - 4-7 days (Pruritus, diffuse excoriations) [facility] [Outside] Khadijah Dozier NP [Primary Care Provider] - 4-7 days Activity Restrictions/Additional Instructions: Please stop insulin Lantus at current time. At presentation to the hospital with hypoglycemia.. Continue glucose checks with sliding scale insulin as needed, reassess glucose, consider if needing to start scheduled insulin. If starting, start low, increase gradually per response. Complete course of antifungal treatment for fungal rash under breasts, groin. Follow-up with dermatology for additional assessment of diffuse itching, excoriations. Complete antibiotic course for mild right lower leg cellulitis. Resume follow-up with podiatry for ulcer on the left foot. Maintain fall precautions. Discharge Attestations Time Spent in Discharge Care*: greater than 30 min Quality Metrics Clinical Quality Measures [ No reported AMI, CVA or VTE this stay] Coding Level of Care Code 54178 Total time (in minutes) for Discharge: 45 Diagnoses Cellulitis L03.90 Candidiasis of breast B37.89 Rash R21 Hypoglycemia E16.2 Hypothermia T68.XXXA Leukocytosis D72.829 Hyponatremia E87.1
[2023-08-04 12:55] LABS: Glucose Point of Care 73 mg/dL (70-110)
[2023-08-04 12:59] LABS: SARS Covid-2 Antigen negative (Negative)
[2023-08-04] MEDS: nystatin powder 15 gm Btl 1 APPLIC TOPICAL (14:06)
== END 2023-08-04 14:32 | disposition skilled nursing facility (03) ==
LOC: ER 06:22 → ICU 09:13 → MEDSURG 08-04 05:04
PROVIDERS: Emergency Medicine; Admitting Provider Family Medicine; Emergency Provider Emergency Medicine; PCP Nurse Practitioner Family; Visit Provider Internal Medicine
DX: E11.649 Type 2 diabetes mellitus with hypoglycemia without coma (principal); T68.XXXA Hypothermia, initial encounter; L03.115 Cellulitis of right lower limb; D72.829 Elevated white blood cell count, unspecified; B37.2 Candidiasis of skin and nail; R60.0 Localized edema; R21 Rash and other nonspecific skin eruption; R41.82 Altered mental status, unspecified; I25.10 Atherosclerotic heart disease of native coronary artery without angina pectoris; I10 Essential (primary) hypertension; Z66 Do not resuscitate; Z86.73 Personal history of transient ischemic attack (TIA), and cerebral infarction without residual deficits
CPT/HCPCS: 36415; 36416; 70450; 71045; 80053; 80061; 81003; 82962; 83036; 83605; 83735; 83880; 84145; 84443; 84484; 85025; 85610; 86140; 87040; 87426; 93005; 93970; 94664; 96365; 96372; 96375; 99285; C9113; G0378; J0692; J1450; J1650; J1940; J2919; J3370; J7799

== ENCOUNTER → 2023-08-10 10:11 | Outpatient (BNVA) | payer MEDICARE, MEDICAID, SELFPAY | PROVIDERS: PCP Nurse Practitioner Family; Visit Provider Nurse Practitioner Family | DX: L30.8 Other specified dermatitis (principal); L28.0 Lichen simplex chronicus; L30.4 Erythema intertrigo; L85.3 Xerosis cutis | CPT/HCPCS: 99204 ==

== ENCOUNTER → 2023-08-24 09:25 | Outpatient (BNVA) | payer MEDICARE, MEDICAID, SELFPAY | PROVIDERS: PCP Nurse Practitioner Family; Visit Provider Podiatrist Foot & Ankle Surgery | DX: B35.1 Tinea unguium (principal); I73.9 Peripheral vascular disease, unspecified; E11.42 Type 2 diabetes mellitus with diabetic polyneuropathy; G62.9 Polyneuropathy, unspecified; Z79.4 Long term (current) use of insulin | CPT/HCPCS: 11721 ==

== ENCOUNTER → 2023-09-07 09:24 | Outpatient (BNVA) | payer MEDICARE, MEDICAID, SELFPAY | PROVIDERS: PCP Nurse Practitioner Family; Visit Provider Nurse Practitioner Family | DX: L30.8 Other specified dermatitis (principal); L30.4 Erythema intertrigo; L98.1 Factitial dermatitis; L28.0 Lichen simplex chronicus; L85.3 Xerosis cutis | CPT/HCPCS: 99214 ==

== ENCOUNTER → 2023-10-11 08:40 | Outpatient (BNVA) | payer MEDICARE, MEDICAID, SELFPAY | PROVIDERS: PCP Nurse Practitioner Family; Visit Provider Physician Assistant | DX: S42.292A Other displaced fracture of upper end of left humerus, initial encounter for closed fracture; X58.XXXA Exposure to other specified factors, initial encounter | CPT/HCPCS: 73060 ==

== ENCOUNTER → 2023-10-13 10:28 | Outpatient (BNVA) | payer MEDICARE, MEDICAID, SELFPAY | PROVIDERS: Visit Provider Nurse Practitioner Family | DX: L30.8 Other specified dermatitis (principal); L30.4 Erythema intertrigo; L98.1 Factitial dermatitis; L28.0 Lichen simplex chronicus | CPT/HCPCS: 99214 ==

== ENCOUNTER 2023-10-21 14:47 | Emergency (ER) | payer MEDICARE, MEDICAID, SELFPAY ==
[2023-10-21] VITALS (7 sets, daily range): BP systolic 136–179; BP diastolic 67–120; PULSE 78–96; RESP 16–20; TEMP 36.7; O2SAT 97–100
--- NOTE | 2023-10-21 14:58 | ECG_ITS ---
[facility] Test Date: 2023-10-21 Pat Name: Olga Suresh Department: Room: Gender: Female [employer]: : 1950 Requested By: Daphnie Velazquez Order Number: [id number] Macey MD: Peng Sims M.D. Measurements Intervals [place] Rate: 84 P: 118 CO: 106 QRS: 116 QRSD: 98 T: 128 QT: 359 QTc: 427 Interpretive Statements SINUS RHYTHM POSSIBLE LEFT ATRIAL ENLARGEMENT LEFT POSTERIOR FASCICULAR BLOCK [ Compared to ECG 08/03/2023 13:12:13 No significant change Electronically Signed On 10-22-2023 12:30:28 CDT by Peng Sims M.D. [id number]
--- NOTE | 2023-10-21 15:29 | ED_ITS ---
HPI - Chest Pain 2 General: Chief Complaint: Chest Pain Stated Complaint: chest pain Time Seen by Provider: 10/21/23 14:50 History of Present Illness: 73-year-old female with a history of vas cular dementia, type 2 diabetes mellitus, anxiety, hypertension, hyperlipidemia, and coronary artery disease who presents to the emergency room from a skilled nursing with a report of chest pain. EMS reports that this morning when she woke up she seemed a little different to the staff and sugar was checked which was in the upper 90s so she was given something p.o. and now her sugars are above 200. At some point she had reported some chest pain for which they called an ambulance. At the time of EMSs arrival there she had no complaints and she is has no complaints now. Review of Systems 2 General: Reports: ROS unobtainable due to medical condition PFSH ED 2 PFSH: Medical History Vaginal prolapse Aftercare following surgery of the genitourinary system Enrolled in chronic care management Cough Chronic pain syndrome Dyslipidemia History of TIA (transient ischemic attack) and stroke Hypertension CAD (coronary artery disease) LAD stent 2004 & 2008, last mibi stress test 02/12 was negative for ischemia but showed scarring. Generalized anxiety disorder Type 2 diabetes mellitus (~07/02/19) Surgical History History of colpocleisis 03/17/2021- colpocleisis Lefort procedure, performed by Dr. Adler at [facility] H/O heart artery stent History of appendectomy History of tubal ligation Family History Father CAD (coronary artery disease) Lung disease Sister CAD (coronary artery disease) Cancer Chronic kidney disease (CKD) Diabetes Breast cancer onset unknown Colon cancer age onset unknown Brother CAD (coronary artery disease) Cancer Diabetes Hypertension Hyperlipidemia Colon cancer age onset unknown Mother Stroke Thyroid disease Other Heart disease Denies family history of Ovarian cancer Dementia Suicide Uterine cancer Social History Smoking and tobacco/nicotine status: never used tobacco/nicotine Substance/Drug Use: never Physical Exam 2 Narrative: EXAM NARRATIVE: General: Alert, no acute distress. Skin: Warm, dry. Head: Normocephalic, atraumatic. Neck: Supple, trachea midline. Eye: Extraocular movements are intact. Ears, nose, mouth and throat: mucosa moist. Cardiovascular: Regular, Normal peripheral perfusion. Respiratory: Lungs are clear to auscultation, respirations are non-labored, breath sounds are equal, Symmetrical chest wall expansion. Gastrointestinal: Soft, Nontender, Non distended, Normal bowel sounds. Musculoskeletal: Normal ROM, no deformity. Neurological: Alert but not oriented, No focal neurological deficit observed. Psychiatric: Patient seems confused/demented. Course 2 Vital Signs: Vital signs: Vital Signs Temperature 98.1 F 10/21/23 14:52 Pulse Rate 81 10/21/23 18:02 Respiratory Rate 16 10/21/23 18:02 Blood Pressure 163/67 10/21/23 18:02 Pulse Oximetry 97 10/21/23 18:02 Oxygen Delivery Me thod Room Air 10/21/23 14:52 MDM - Chest Pain Medical Decision Making Differential diagnosis for patient with chest pain includes but is not limited to and based on the above HPI, review of systems and physical exam: Pneumonia. unstable angina. angina. Acute coronary syndrome / OR. Pulmonary embolism. Costochondritis / musculoskeletal. Pleurisy. Pericarditis. Esophageal spasm. Pancreatis. Cholecystitis. Orders placed to evaluate differential diagnosis based on the above differential, HPI and physical exam EKG: Time 1454. Rate 84. Normal sinus rhythm, No ST-T changes, no ectopy, normal HI & QRS intervals, This was reviewed and interpreted by myself the ER physician at 1458 Lab Review: Laboratory results were reviewed and interpreted by myself the emergency room physician. Lab work is unremarkable. No leukocytosis. Stable anemia. BUN and creatinine are 16 and 0.8. Serial cardiac markers are negative. I reviewed the patient's medical record. Reexamination: Patient remained stable. No altered mental status. She had no further chest pain. No increased work of breathing. Assessment and plan: Noncardiac chest pain - Discharged home - Discussed findings and plan with patient. Answered any questions. - All laboratory values were reviewed and interpreted personally by myself, the ER physician - Evaluation and treatment of this problem were appropriate in the emergency setting Lab Data 10/21/23 15:44 10/21/23 15:44 Laboratory Results WBC 8.59 10^3/uL (3.29-11.43) 10/21/23 15:44 RBC 3.43 10^6/uL (3.85-5.65) L 10/21/23 15:44 Hgb 10.10 g/dL (11.27-16.99) L 10/21/23 15:44 Hct 32.4 % (36-47) L 10/21/23 15:44 MCV 94.5 fl (85-98) 10/21/23 15:44 MCH 29.4 pg (27-33) 10/21/23 15:44 MCHC 31.2 g/dL (30-55) 10/21/23 15:44 RDW 15.2 % (12.1-15.1) H 10/21/23 15:44 Plt Count 217 10^3/cmm (157-399) 10/21/23 15:44 MPV 10.1 fL (7.4-10.4) 10/21/23 15:44 Neut % (Auto) 68.9 % 10/21/23 15:44 Lymph % (Auto) 17.1 % 10/21/23 15:44 [place] % (Auto) 9.1 % 10/21/23 15:44 Eos % (Auto) 4.0 % 10/21/23 15:44 Baso % (Auto) 0.7 % 10/21/23 15:44 Neut # (Auto) 5.92 10^3/uL (1.8-7.7) 10/21/23 15:44 Lymph # (Auto) 1.5 10^3/uL (0.8-4.8) 10/21/23 15:44 [place] # (Auto) 0.8 10^3/uL (0.2-0.9) 10/21/23 15:44 Eos # (Auto) 0.3 10^3/uL (0.0-0.8) 10/21/23 15:44 Baso # (Auto) 0.1 10^3/uL (0.0-0.1) 10/21/23 15:44 Nucleated RBC % (auto) 0 % 10/21/23 15:44 Nucleated RBCs # 0.0 /100WBC 10/21/23 15:44 Sodium 129 mmol/L (136-145) L 10/21/23 15:44 Potassium 4.6 mmol/L (3.5-5.1) 10/21/23 15:44 Chloride 94 mmol/L (98-107) L 10/21/23 15:44 Carbon Dioxide 22 mmol/L (22-29) 10/21/23 15:44 Anion Gap 17.6 (5-19) 10/21/23 15:44 BUN 16 mg/dL (8-23) 10/21/23 15:44 Creatinine 0.8 mg/dL (0.5-0.9) 10/21/23 15:44 GFR Calculation Not Reportable 10/21/23 15:44 Glucose 111 mg/dL (65-115) 10/21/23 15:44 Calculated Osmolality 270 mOsm/kg (285-295) L 10/21/23 15:44 Lactic Acid 2.1 mmol/L (0.5-2.2) 10/21/23 15:44 Lactic Acid (Sepsis) 1.8 mmol/L (0.5-2.2) 10/21/23 18:38 Calcium 9.5 mg/dL (8.5-10.5) 10/21/23 15:44 Total Bilirubin 0.3 mg/dL (0.15-1.2) 10/21/23 15:44 AST 35 U/L (0-32) H 10/21/23 15:44 ALT 23 U/L (0-33) 10/21/23 15:44 Alkaline Phosphatase 199 U/L (35-105) H 10/21/23 15:44 Troponin T Baseline 15 ng/L (0-10) H 10/21/23 15:44 Troponin T 120 Minute 15.88 ng/L (0-10) H 10/21/23 17:39 Delta Troponin T 0.88 ABS# (0-10) 10/21/23 17:39 Total Protein 6.8 g/dL (6.6-8.7) 10/21/23 15:44 Albumin 4.0 g/dL (3.5-5.2) 10/21/23 15:44 Globulin 2.8 g/dL (1.3-4.6) 10/21/23 15:44 All radiology interpretation(s) finalized by discharge Discharge Plan Discharge Patient Disposition: Home Clinical Impression: Non-cardiac chest pain Condition: Stable Prescriptions: No Action (DME) left cuff and collar sling See Rx Instructions .Route .MEDSUPPLY Qty: 1 0RF Rx Instructions: As directed (DME) orthotic shoes custom See Rx Instructions .Route .MEDSUPPLY Qty: 1 0RF Rx Instructions: As directed ([facility]) diabetic shoes with 3 inserts See Rx Instructions .Route .MEDSUPPLY Qty: 1 0RF Rx Instructions: As directed to the shoe guys ([facility]) lancets [OneTouch Delica Lancets] 30 gauge misc See Rx Instructions .ROUTE .MEDSUPPLY Qty: 100 0RF Rx Instructions: test daily as needed (DME) pen needle, diabetic [Comfort EZ Pen [place]] 31 gauge x 3/16 needle See Rx Instructions .ROUTE .COMPLEX Qty: 100 5RF Dose Instruction: USE WITH lantus Rx Instructions: USE WITH lantus ([facility]) diabetic shoes See Rx Instructions .Route .MEDSUPPLY Qty: 1 0RF Rx Instructions: Please include 3 inserts potassium chloride 20 mEq tablet,ER particles/crystals 20 meq PO QAM Qty: 30 0RF rosuvastatin 5 mg tablet See Rx Instructions .ROUTE .COMPLEX Qty: 90 1RF Dose Instruction: TAKE 1 TABLET BY MOUTH DAILY Rx Instructions: TAKE 1 TABLET BY MOUTH BEDTIME clopidogrel 75 mg tablet See Rx Instructions .ROUTE .COMPLEX Qty: 30 0RF Dose Instruction: TAKE 1 TABLET BY MOUTH EVERY DAY. Must have an appointment FOR further refills Rx Instructions: TAKE 1 TABLET BY MOUTH EVERY DAY. Must have an appointment FOR further refills hydralazine 25 mg tablet 25 mg PO BEDTIME fluticasone propionate 220 mcg/actuation HFA aerosol inhaler 1 puff INHALATION BID aripiprazole 5 mg tablet 5 mg PO DAILY memantine 5 mg tablet 5 mg PO BID Novolog FlexPen U-100 Insulin 100 unit/mL (3 mL) insulin pen See Rx Instructions .ROUTE .COMPLEX Qty: 15 0RF Rx Instructions: ACHS Glucose: 141-180 - 2 units 181-220 - 3 221-260 - 4 261-300 - 5 301-350 - 6 351-400 - 7 >400 - 8 units Lasix 40 mg tablet 40 mg PO DAILY PRN (Reason: Edema) Qty: 30 0RF hydroxyzine pamoate 25 mg capsule 25 mg PO Q8H PRN (Reason: itching) Qty: 20 0RF gabapentin 100 mg capsule 100 mg PO BID Qty: 60 0RF nitroglycerin [Nitrostat] 0.4 mg Tablet, Sublingual 0.4 mg SUBLINGUAL Q5M PRN (Reason: Chest Pain) Rx Instructions: do not exceed 3 doses per episode naloxone [Narcan] 4 mg/actuation [place],Non-Aerosol 1 spray INTRANASAL Q2M PRN (Reason: Opioid Overdose) Rx Instructions: spray 1 dose into ONE nostril; alternate nostrils w each dose until help arrives acetaminophen [Tylenol] 325 mg Tablet 650 mg PO Q6H PRN (Reason: Pain) gabapentin 300 mg Capsule 600 mg PO TID Discharge Orders: Discharge ED (Routine); Ordered 10/21/23 Ordered By: Daphnie Serrano Discharge Diet: Usual diet Discharge Activity: Increase activity as tolerated Patient Instructions: Noncardiac Chest Pain (ED) Activity Restrictions/Additional Instructions: Thank you for choosing [facility] for your healthcare needs today. Please realize this is an emergency room and that we are providing you with a medical screening exam and this may not be complete and all inclusive of all the testing and or work up that you may need to determine your ailment or severity of your illness. You have been screened and evaluated and felt safe for discharge. Health conditions do change or evolve sometimes and as such it is important that you follow up with your Primary Doctor to be re checked, 3-5 days is a general good time frame for follow up. You are always welcome to return to the ED for re assessment if your symptoms are worsening or you have new concerns Coding Level of Care Code ED [place] for [facility]
[2023-10-21 16:01] LABS: Basophils # 0.1 10^3/uL (0.0-0.1); Basophils % 0.7 %; Eosinophils # 0.3 10^3/uL (0.0-0.8); Hematocrit 32.4 % (36-47); Lymphocytes # 1.5 10^3/uL (0.8-4.8); Lymphocytes % 17.1 %; Mean Corpuscular HGB Conc 31.2 g/dL (30-55); Mean Corpuscular Hemoglobin 29.4 pg (27-33); Mean Corpuscular Volume 94.5 fl (85-98); Mean Platelet Volume 10.1 fL (7.4-10.4); Monocytes # 0.8 10^3/uL (0.2-0.9); Monocytes % 9.1 %; Neutrophils # 5.92 10^3/uL (1.8-7.7); Neutrophils % 68.9 %; Nucleated Red Blood Cells % 0 %; Platelet Count 217 10^3/cmm (157-399); Red Blood Count 3.43 10^6/uL (3.85-5.65); Red Cell Distribution Width 15.2 % (12.1-15.1); White Blood Count 8.59 10^3/uL (3.29-11.43)
[2023-10-21 16:17] LABS: Alanine Aminotransferase 23 U/L (0-33); Alkaline Phosphatase 199 U/L (35-105); Anion Gap 17.6 (5-19); Aspartate Amino Transferase 35 U/L (0-32); Blood Urea Nitrogen 16 mg/dL (8-23); Calcium 9.5 mg/dL (8.5-10.5); Carbon Dioxide 22 mmol/L (22-29); Chloride 94 mmol/L (98-107); Globulin 2.8 g/dL (1.3-4.6); Glucose 111 mg/dL (65-115); Osmolality Calculated 270 mOsm/kg (285-295); Potassium 4.6 mmol/L (3.5-5.1); Sodium 129 mmol/L (136-145); Total Bilirubin 0.3 mg/dL (0.15-1.2); Total Protein 6.8 g/dL (6.6-8.7)
[2023-10-21 16:18] LABS: Troponin(5th) Baseline 15 ng/L (0-10)
[2023-10-21 16:19] LABS: Lactic Sepsis W/Reflex 2.1 mmol/L (0.5-2.2)
--- NOTE | 2023-10-21 16:37 | ECG_ITS ---
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 Measurements Intervals [place] Rate: 77 P: 53 IL: 135 QRS: 46 QRSD: 98 T: 67 QT: 374 QTc: 424 Interpretive Statements SINUS RHYTHM Normal EKG Compared to ECG 08/03/2023 13:12:13 No significant changes Electronically Signed On 10-21-2023 16:48:20 CDT by Peng Sims M.D. [id number]
[2023-10-21] MEDS: sodium chloride 0.9% 500 ML 999 ML IV (17:11)
[2023-10-21 17:41] LABS: Reflex Lactate Order REFLEX LACTIC ORDERD
[2023-10-21 18:00] LABS: Troponin 5 2HR 15.88 ng/L (0-10); Troponin 5 2HR Delta 0.88 ABS# (0-10)
[2023-10-21 19:06] LABS: Lactic Acid level (Lactate) 1.8 mmol/L (0.5-2.2)
== END 2023-10-21 20:15 | disposition home or self-care (01) ==
PROVIDERS: Emergency Provider Emergency Medicine
DX: R07.89 Other chest pain (principal); Z79.02 Long term (current) use of antithrombotics/antiplatelets; Z79.4 Long term (current) use of insulin; E78.5 Hyperlipidemia, unspecified; Z86.73 Personal history of transient ischemic attack (TIA), and cerebral infarction without residual deficits; I10 Essential (primary) hypertension; E11.9 Type 2 diabetes mellitus without complications
CPT/HCPCS: 36415; 80053; 83605; 84484; 85025; 87040; 93005; 99284; J7040

== ENCOUNTER → 2023-11-03 08:07 | Outpatient (BNVA) | payer MEDICARE, MEDICAID, SELFPAY | PROVIDERS: Visit Provider Physician Assistant | DX: S42.292A Other displaced fracture of upper end of left humerus, initial encounter for closed fracture (principal); X58.XXXA Exposure to other specified factors, initial encounter | CPT/HCPCS: 73060; 99213 ==

== ENCOUNTER 2023-11-19 16:04 | Emergency (ER) | payer MEDICARE, MEDICAID, SELFPAY ==
[2023-11-19] VITALS (12 sets, daily range): BP systolic 152–160; BP diastolic 62–89; PULSE 73–82; RESP 16–22; TEMP 36.8; O2SAT 97–100
--- NOTE | 2023-11-19 16:27 | CTR_ITS ---
PROCEDURE INFORMATION: Exam: CT Head Without Contrast Exam date and time: 11/19/2023 4:51 PM Age: 73 years old Clinical indication: Altered mental status/memory loss; Confusion or disorientation; Additional info: Headache TECHNIQUE: Imaging protocol: Computed tomography of the head without contrast. Radiation optimization: All CT scans at this facility use at least one of these dose optimization techniques: automated exposure control; mA and/or kV adjustment per patient size (includes targeted exams where dose is matched to clinical indication); or iterative reconstruction. COMPARISON: CT head wo con* [id number] 08/03/2023 4:24 AM RADIATION DOSE METRICS: Total DLP (mGy-cm): 1005.48 FINDINGS: Brain: Similar periventricular white matter hypodensities which likely represent chronic small vessel ischemic changes. No acute intracranial hemorrhage. Randall-white differentiation is maintained. Cerebral ventricles: Mild age-appropriate volume loss with prominence of the ventricles and cortical sulci. Paranasal sinuses: Visualized sinuses are unremarkable. No fluid levels. Mastoid air cells: Visualized mastoid air cells are well aerated. Bones: Hyperostosis frontalis. No acute osseous findings. Soft tissues: Unremarkable. Vasculature: Vascular calcifications along the carotid siphons and vertebral arteries. CT/CT head wo con* [id number] IMPRESSION: No acute intracranial findings.
--- NOTE | 2023-11-19 16:27 | XRR_ITS ---
PROCEDURE INFORMATION: Exam: XR Chest Exam date and time: 11/19/2023 4:53 PM Age: 73 years old Clinical indication: Cough and dyspnea; Prior surgery; Surgery date: 6+ months; Surgery type: Cardiac stent; Patient HX: Dyspnea; Cough; Generalized weakness TECHNIQUE: Imaging protocol: Radiologic exam of the chest. Views: 1 view. COMPARISON: CR XR chest 1V portable [id number] 08/03/2023 4:55 AM FINDINGS: Lungs: Unremarkable. No consolidation. Pleural spaces: Unremarkable. No pleural effusion. No pneumothorax. Heart/Mediastinum: Stable cardiomediastinal silhouette. Coronary artery calcifications/stenting. Bones/joints: Similar chronic deformity of the left proximal humerus. XR/XR chest 1V portable [id number] IMPRESSION: No acute findings.
--- NOTE | 2023-11-19 16:37 | ECG_ITS ---
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 Measurements Intervals [place] Rate: 73 P: 53 SD: 141 QRS: 47 QRSD: 99 T: 67 QT: 369 QTc: 407 Interpretive Statements SINUS RHYTHM WITH SINUS ARRHYTHMIA Compared to ECG 10/21/2023 16:37:37 No significant changes Electronically Signed On 11-19-2023 20:38:11 CDT by Jeremy Darnell M.D. [id number]
--- NOTE | 2023-11-19 16:44 | W.ED.GENADLT ---
HPI - General Adult General: Chief complaint: General Medical Stated complaint: not feeling well Time Seen by Provider: 11/19/23 16:23 History of Present Illness: 73-year-old female presents emergency room from detention she is confused as to where she is at why she is here. According to the EMS report she was having nausea and headache as well as elevated blood pressure. She does not know why she is here. She does not complain of any particular problems. She is wearing an arm sling states it is related to an injury she previously had her shoulder. No pain in that left shoulder at this time. Family later arrived reviewing the exam they reported that she seemed altered while at the detention she had does have dementia. Associated symptoms: Deny chest pain, dyspnea or rash Related Data Home Medications Medication Instructions Recorded Confirmed naloxone 4 mg/actuation nasal 1 spray intranasal Q2M PRN Opioid 12/19/21 11/03/23 spray (Narcan) Overdose nitroglycerin 0.4 mg sublingual 0.4 mg sublingual Q5M PRN Chest 12/19/21 11/03/23 tablet (Nitrostat) Pain acetaminophen 325 mg tablet 650 mg PO Q6H PRN Pain 12/20/21 11/03/23 (Tylenol) gabapentin 300 mg capsule 600 mg PO TID 12/20/21 11/03/23 aripiprazole 5 mg tablet 5 mg PO DAILY 08/03/23 11/03/23 fluticasone propionate 220 1 puff inhalation BID 08/03/23 11/03/23 mcg/actuation HFA aerosol inhaler hydralazine 25 mg tablet 25 mg PO BEDTIME 08/03/23 11/03/23 memantine 5 mg tablet 5 mg PO BID 08/03/23 11/03/23 Previous Rx's Medication Instructions Recorded lancets 30 gauge (OneTouch Delica #100 ea 12/20/19 Lancets) pen needle, diabetic 31 gauge x ##100 11/10/2106/09 (Comfort EZ Pen Lynn) orthotic shoes #1 ea 01/04/22 diabetic shoes #1 ea 02/08/22 potassium chloride 20 mEq 20 meq PO QAM #30 tabs 05/20/22 tablet,extended release(part/cryst) rosuvastatin 5 mg tablet See Rx Instructions .Route 08/16/22 .COMPLEX #90 tabs clopidogrel 75 mg tablet See Rx Instructions .Route 04/25/23 .COMPLEX #30 tabs diabetic shoes with 3 inserts #1 ea 04/25/23 furosemide 40 mg tablet (Lasix) 40 mg PO DAILY PRN Edema #30 tabs 08/04/23 gabapentin 100 mg capsule 100 mg PO BID #60 caps 08/04/23 hydroxyzine pamoate 25 mg capsule 25 mg PO Q8H PRN itching #20 caps 08/04/23 insulin aspart U-100 100 unit/mL See Rx Instructions .Route 08/04/23 (3 mL) subcutaneous pen (Novolog .COMPLEX #15 mL FlexPen U-100 Insulin aspart) left cuff and collar sling #1 ea 10/11/23 cefdinir 300 mg capsule 300 mg PO BID #14 caps 11/19/23 Allergies Allergy/AdvReac Type Severity Reaction Status Date / Time simvastatin Allergy leg cramps Verified 11/03/23 08:04 Review of Systems General: Reports: Other (ROS done although is alberts negative uncertain veracity due to pt dementia) Const: Denies: fever(s) or chills Card: Denies: chest pain Resp: Denies: dyspnea GI: Denies: abdominal pain : Denies: dysuria, urinary frequency or urinary urgency Musc: Denies: neck pain or back pain Skin/Breast: Denies: rash PFSH ED PFSH: Medical History Vaginal prolapse Aftercare following surgery of the genitourinary system Enrolled in chronic care management Cough Chronic pain syndrome Dyslipidemia History of TIA (transient ischemic attack) and stroke Hypertension CAD (coronary artery disease) LAD stent 2004 & 2008, last mibi stress test 02/12 was negative for ischemia but showed scarring. Generalized anxiety disorder Type 2 diabetes mellitus (~07/02/19) Surgical History History of colpocleisis 03/17/2021- colpocleisis Lefort procedure, performed by Dr. Adler at [facility] H/O heart artery stent History of appendectomy History of tubal ligation Family History Father CAD (coronary artery disease) Lung disease Sister CAD (coronary artery disease) Cancer Chronic kidney disease (CKD) Diabetes Breast cancer onset unknown Colon cancer age onset unknown Brother CAD (coronary artery disease) Cancer Diabetes Hypertension Hyperlipidemia Colon cancer age onset unknown Mother Stroke Thyroid disease Other Heart disease Denies family history of Ovarian cancer Dementia Suicide Uterine cancer Social History Smoking and tobacco/nicotine status: never used tobacco/nicotine Substance/Drug Use: never Physical Exam Const: COMMON NORMALS: no acute distress GENERAL APPEARANCE: cooperative and comfortable ORIENTATION/CONSCIOUSNESS: Yes awake HENMT: COMMON NORMALS: normocephalic, atraumatic and hearing grossly normal bilaterally HEAD & SCALP: normocephalic and atraumatic Resp: COMMON NORMALS: normal respiratory effort, No retractions, No use of accessory muscles and clear to auscultation bilaterally AUSCULTATION: clear to auscultation bilaterally Cardio: COMMON NORMALS: regular rate, regular rhythm and No murmurs present (Cardio) RATE: regular rate RHYTHM: regular rhythm GI: COMMON NORMALS: Soft to palpation and No hepatosplenomegaly present AUSCULTATION: Yes normoactive bowel sounds PALPATION: Yes Soft to palpation, No Tenderness to palpation present (GI), No Guarding due to palpation present (GI) and Yes No hepatosplenomegaly present Extremity: COMMON NORMALS: normal to inspection, capillary refill normal, no clubbing, cyanosis or edema, no calf tenderness and no pedal edema Skin: COMMON NORMALS: no rashes or lesions noted GENERAL SKIN EXAM: no rashes or lesions noted Course Vital Signs: Vital signs: Vital Signs Temperature 98.2 F 11/19/23 16:05 Pulse Rate 77 11/19/23 19:00 Respiratory Rate 18 11/19/23 17:20 Blood Pressure 155/89 11/19/23 19:00 Pulse Oximetry 99 11/19/23 19:00 Oxygen Delivery Me thod Room Air 11/19/23 18:00 MDM - General Adult Medical Decision Making No leukocytosis UA shows cystitis. Chest x-ray and head CT negative. Will discharge to detention. Was given Rocephin here given prescription for cefdinir 300 twice daily for 7 days. Medical Records I reviewed the patient's medical records. Lab Data I reviewed the patient's lab results. 11/19/23 16:42 11/19/23 16:42 Radiology Impressions Chest X-Ray 11/19/23 16:27 IMPRESSION: No acute findings. Head CT 11/19/23 16:27 IMPRESSION: No acute intracranial findings. Laboratory Results WBC 8.80 10^3/uL (3.29-11.43) 11/19/23 16:42 RBC 3.39 10^6/uL (3.85-5.65) L 11/19/23 16:42 Hgb 9.90 g/dL (11.27-16.99) L 11/19/23 16:42 Hct 30.9 % (36-47) L 11/19/23 16:42 MCV 91.2 fl (85-98) 11/19/23 16:42 MCH 29.2 pg (27-33) 11/19/23 16:42 MCHC 32.0 g/dL (30-55) 11/19/23 16:42 RDW 14.6 % (12.1-15.1) 11/19/23 16:42 Plt Count 214 10^3/cmm (157-399) 11/19/23 16:42 MPV 9.9 fL (7.4-10.4) 11/19/23 16:42 Neut % (Auto) 76.7 % 11/19/23 16:42 Lymph % (Auto) 11.9 % 11/19/23 16:42 [place] % (Auto) 9.3 % 11/19/23 16:42 Eos % (Auto) 1.6 % 11/19/23 16:42 Baso % (Auto) 0.3 % 11/19/23 16:42 Neut # (Auto) 6.74 10^3/uL (1.8-7.7) 11/19/23 16:42 Lymph # (Auto) 1.1 10^3/uL (0.8-4.8) 11/19/23 16:42 [place] # (Auto) 0.8 10^3/uL (0.2-0.9) 11/19/23 16:42 Eos # (Auto) 0.1 10^3/uL (0.0-0.8) 11/19/23 16:42 Baso # (Auto) 0.0 10^3/uL (0.0-0.1) 11/19/23 16:42 Nucleated RBC % (auto) 0 % 11/19/23 16:42 Nucleated RBCs # 0.0 /100WBC 11/19/23 16:42 Sodium 132 mmol/L (136-145) L 11/19/23 16:42 Potassium 4.6 mmol/L (3.5-5.1) 11/19/23 16:42 Chloride 98 mmol/L (98-107) 11/19/23 16:42 Carbon Dioxide 24 mmol/L (22-29) 11/19/23 16:42 Anion Gap 14.6 (5-19) 11/19/23 16:42 BUN 16 mg/dL (8-23) 11/19/23 16:42 Creatinine 0.7 mg/dL (0.5-0.9) 11/19/23 16:42 GFR Calculation Not Reportable 11/19/23 16:42 Glucose 126 mg/dL (65-115) H 11/19/23 16:42 Calculated Osmolality 277 mOsm/kg (285-295) L 11/19/23 16:42 Calcium 9.1 mg/dL (8.5-10.5) 11/19/23 16:42 Total Bilirubin 0.3 mg/dL (0.15-1.2) 11/19/23 16:42 AST 87 U/L (0-32) H 11/19/23 16:42 ALT 64 U/L (0-33) H 11/19/23 16:42 Alkaline Phosphatase 256 U/L (35-105) H 11/19/23 16:42 Total Protein 6.6 g/dL (6.6-8.7) 11/19/23 16:42 Albumin 3.8 g/dL (3.5-5.2) 11/19/23 16:42 Globulin 2.8 g/dL (1.3-4.6) 11/19/23 16:42 Urine Color Yellow (Yellow) 11/19/23 16:25 Urine Appearance Clear (CLEAR) 11/19/23 16:25 Urine pH 8.0 (5-7) A 11/19/23 16:25 Ur Specific [place] 1.007 (1.005-1.030) 11/19/23 16:25 Urine Protein Negative (Negative) 11/19/23 16:25 Urine Glucose (UA) Negative (Normal) 11/19/23 16:25 Urine Ketones Negative (Negative) 11/19/23 16:25 Urine Blood Negative (Negative) 11/19/23 16:25 Urine Nitrate Negative (Negative) 11/19/23 16:25 Urine Bilirubin Negative (Negative) 11/19/23 16:25 Urine Urobilinogen 1.0 mg/dL (Negative) 11/19/23 16:25 Ur Leukocyte Esterase 2+ (Negative) A 11/19/23 16:25 Urine RBC 0-2 /hpf (0-2) 11/19/23 16:25 Urine WBC >100 /hpf (0-5) H 11/19/23 16:25 Ur Squamous Epith Cells 0-5 /hpf (0-5) 11/19/23 16:25 Amorphous Sediment Not Reportable 11/19/23 16:25 Urine Bacteria 4+ /hpf (NONE) H 11/19/23 16:25 Hyaline Casts 0.81 /lpf 11/19/23 16:25 All radiology interpretation(s) finalized by discharge Discharge Plan Discharge Patient Disposition: Home Clinical Impression: Cystitis, Anemia Condition: Stable Prescriptions: New cefdinir 300 mg capsule 300 mg PO BID Qty: 14 0RF No Action (DME) left cuff and collar sling See Rx Instructions .Route .MEDSUPPLY Qty: 1 0RF Rx Instructions: As directed (DME) orthotic shoes custom See Rx Instructions .Route .MEDSUPPLY Qty: 1 0RF Rx Instructions: As directed (DME) diabetic shoes with 3 inserts See Rx Instructions .Route .MEDSUPPLY Qty: 1 0RF Rx Instructions: As directed to the shoe guys (DME) lancets [OneTouch Delica Lancets] 30 gauge misc See Rx Instructions .ROUTE .MEDSUPPLY Qty: 100 0RF Rx Instructions: test daily as needed (DME) pen needle, diabetic [Comfort EZ Pen Lynn] 31 gauge x 3/16 needle See Rx Instructions .ROUTE .COMPLEX Qty: 100 5RF Dose Instruction: USE WITH lantus Rx Instructions: USE WITH lantus (DME) diabetic shoes See Rx Instructions .Route .MEDSUPPLY Qty: 1 0RF Rx Instructions: Please include 3 inserts potassium chloride 20 mEq tablet,ER particles/crystals 20 meq PO QAM Qty: 30 0RF rosuvastatin 5 mg tablet See Rx Instructions .ROUTE .COMPLEX Qty: 90 1RF Dose Instruction: TAKE 1 TABLET BY MOUTH DAILY Rx Instructions: TAKE 1 TABLET BY MOUTH BEDTIME clopidogrel 75 mg tablet See Rx Instructions .ROUTE .COMPLEX Qty: 30 0RF Dose Instruction: TAKE 1 TABLET BY MOUTH EVERY DAY. Must have an appointment FOR further refills Rx Instructions: TAKE 1 TABLET BY MOUTH EVERY DAY. Must have an appointment FOR further refills hydralazine 25 mg tablet 25 mg PO BEDTIME fluticasone propionate 220 mcg/actuation HFA aerosol inhaler 1 puff INHALATION BID aripiprazole 5 mg tablet 5 mg PO DAILY memantine 5 mg tablet 5 mg PO BID Novolog FlexPen U-100 Insulin 100 unit/mL (3 mL) insulin pen See Rx Instructions .ROUTE .COMPLEX Qty: 15 0RF Rx Instructions: ACHS Glucose: 141-180 - 2 units 181-220 - 3 221-260 - 4 261-300 - 5 301-350 - 6 351-400 - 7 >400 - 8 units Lasix 40 mg tablet 40 mg PO DAILY PRN (Reason: Edema) Qty: 30 0RF hydroxyzine pamoate 25 mg capsule 25 mg PO Q8H PRN (Reason: itching) Qty: 20 0RF gabapentin 100 mg capsule 100 mg PO BID Qty: 60 0RF nitroglycerin [Nitrostat] 0.4 mg Tablet, Sublingual 0.4 mg SUBLINGUAL Q5M PRN (Reason: Chest Pain) Rx Instructions: do not exceed 3 doses per episode naloxone [Narcan] 4 mg/actuation [place]illian,Non-Aerosol 1 spray INTRANASAL Q2M PRN (Reason: Opioid Overdose) Rx Instructions: spray 1 dose into ONE nostril; alternate nostrils w each dose until help arrives acetaminophen [Tylenol] 325 mg Tablet 650 mg PO Q6H PRN (Reason: Pain) gabapentin 300 mg Capsule 600 mg PO TID Discharge Orders: Discharge ED (Routine); Ordered 11/19/23 Ordered By: Anton Mao Patient Instructions: Opioid Safety, Pain Management Activity Restrictions/Additional Instructions: Thank you for choosing [facility] for your healthcare needs today. It is very important that you follow up as instructed or that you return to the Emergency Department should you have concerns or if your condition changes or worsens in any way. You are seen today for not feeling well you were found to have a bladder infection your white count is normal you are also mildly anemic. You are given a dose of Rocephin in the emergency room and should start on oral antibiotics tomorrow 1 pill twice a day for 7 days. Your urine will be cultured. You should recheck your hemoglobin within the next week while at the detention. 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
[2023-11-19 16:47] LABS: Charge for UA Resulting for Rev
[2023-11-19 16:49] LABS: Basophils % 0.3 %; Eosinophils # 0.1 10^3/uL (0.0-0.8); Eosinophils % 1.6 %; Hematocrit 30.9 % (36-47); Lymphocytes # 1.1 10^3/uL (0.8-4.8); Lymphocytes % 11.9 %; Mean Corpuscular Hemoglobin 29.2 pg (27-33); Mean Corpuscular Volume 91.2 fl (85-98); Mean Platelet Volume 9.9 fL (7.4-10.4); Monocytes # 0.8 10^3/uL (0.2-0.9); Monocytes % 9.3 %; Neutrophils # 6.74 10^3/uL (1.8-7.7); Neutrophils % 76.7 %; Nucleated Red Blood Cells % 0 %; Platelet Count 214 10^3/cmm (157-399); Red Blood Count 3.39 10^6/uL (3.85-5.65); Red Cell Distribution Width 14.6 % (12.1-15.1)
[2023-11-19 16:59] LABS: Bilirubin Urine Negative (Negative); Blood Urine Negative (Negative); Glucose Urine UA Negative (Normal); Ketones Urine Negative (Negative); Leukocyte Esterase Urine 2+ (Negative); Nitrate Urine Negative (Negative); Protein Urine Negative (Negative); Specific Gravity, Urine 1.007 (1.005-1.030); Urine Appearance Clear (CLEAR); Urine Color Yellow (Yellow)
[2023-11-19 17:04] LABS: Bacteria Urine 4+ /hpf; Hyaline Casts Urine 0.81 /lpf; RBC Urine 0-2 /hpf (0-2); Squamous Epithelial Cell Urine 0-5 /hpf (0-5); WBC Urine >100 /hpf (0-5)
[2023-11-19 17:09] LABS: Alanine Aminotransferase 64 U/L (0-33); Albumin Level 3.8 g/dL (3.5-5.2); Alkaline Phosphatase 256 U/L (35-105); Anion Gap 14.6 (5-19); Aspartate Amino Transferase 87 U/L (0-32); Blood Urea Nitrogen 16 mg/dL (8-23); Calcium 9.1 mg/dL (8.5-10.5); Carbon Dioxide 24 mmol/L (22-29); Chloride 98 mmol/L (98-107); Globulin 2.8 g/dL (1.3-4.6); Glucose 126 mg/dL (65-115); Osmolality Calculated 277 mOsm/kg (285-295); Potassium 4.6 mmol/L (3.5-5.1); Sodium 132 mmol/L (136-145); Total Bilirubin 0.3 mg/dL (0.15-1.2); Total Protein 6.6 g/dL (6.6-8.7)
[2023-11-19 17:09] LABS: Add Urine Culture? Yes
[2023-11-19] MEDS: cefTRIAXone 1,000 mg SDV 1000 MG IVP (18:26)
== END 2023-11-19 18:55 | disposition home or self-care (01) ==
PROVIDERS: Emergency Provider Family Medicine
DX: N30.90 Cystitis, unspecified without hematuria (principal); D64.9 Anemia, unspecified; Z79.02 Long term (current) use of antithrombotics/antiplatelets; Z79.4 Long term (current) use of insulin; E78.5 Hyperlipidemia, unspecified; Z86.73 Personal history of transient ischemic attack (TIA), and cerebral infarction without residual deficits; I10 Essential (primary) hypertension; I25.10 Atherosclerotic heart disease of native coronary artery without angina pectoris; E11.9 Type 2 diabetes mellitus without complications
CPT/HCPCS: 36415; 70450; 71045; 80053; 81003; 81015; 85025; 87077; 87086; 87186; 93005; 96374; 99285; J0696

== ENCOUNTER → 2023-11-30 09:45 | Outpatient (BNVA) | payer MEDICARE, MEDICAID, SELFPAY | PROVIDERS: Visit Provider Physician Assistant | DX: S42.292A Other displaced fracture of upper end of left humerus, initial encounter for closed fracture (principal); X58.XXXA Exposure to other specified factors, initial encounter | CPT/HCPCS: 73030; 99213 ==

== ENCOUNTER 2023-12-17 01:20 | Emergency (ER) | payer MEDICARE, MEDICAID, SELFPAY ==
--- NOTE | 2023-12-17 01:24 | XRR_ITS ---
PROCEDURE INFORMATION: Exam: XR Chest Exam date and time: 12/17/2023 1:36 AM Age: 73 years old Clinical indication: Other: AMS; Prior surgery; Surgery date: 6+ months; Surgery type: Coronary stent; Patient HX: EMS arrival from retirement for general weakness and hypertension. History of TIA. TECHNIQUE: Imaging protocol: Radiologic exam of the chest. Views: 1 view. COMPARISON: CR (CHEST, ) 11/19/2023 4:53 PM FINDINGS: Lungs: Unremarkable. No consolidation. Pleural spaces: Unremarkable. No pleural effusion. No pneumothorax. Heart/Mediastinum: Unremarkable. No cardiomegaly. Bones/joints: Degenerative changes are noted in the bones. XR/XR chest 1V portable [id number] IMPRESSION: No acute cardiopulmonary disease.
--- NOTE | 2023-12-17 01:24 | CTR_ITS ---
PROCEDURE INFORMATION: Exam: CT Head Without Contrast Exam date and time: 12/17/2023 1:41 AM Age: 73 years old Clinical indication: Altered mental status/memory loss; Patient HX: EMS arrival from [facility] for general weakness and hypertension. History of TIA. ; Additional info: AMS TECHNIQUE: Imaging protocol: Computed tomography of the head without contrast. Radiation optimization: All CT scans at this facility use at least one of these dose optimization techniques: automated exposure control; mA and/or kV adjustment per patient size (includes targeted exams where dose is matched to clinical indication); or iterative reconstruction. COMPARISON: CT head wo con* [id number] 11/19/2023 4:51 PM RADIATION DOSE METRICS: Total DLP (mGy-cm): 1838.68 FINDINGS: Brain: There is no mass effect, midline shift, acute hemorrhage, extra-axial fluid collection or acute lobar infarct. Coarse calcification is noted in the right may be due to remote prior granulomatous infection. Periventricular white matter hypodensity likely represents chronic microvascular ischemic change. There is relative volume loss in the temporal lobes with atrophic dilatation of the temporal horns of the lateral ventricles. Cerebral ventricles: See above. Paranasal sinuses: Visualized sinuses are unremarkable. No fluid levels. Mastoid air cells: Visualized mastoid air cells are well aerated. Bones: Unremarkable. No acute fracture. Soft tissues: Unremarkable. CT/CT head wo con* [id number] IMPRESSION: No acute intracranial process.
[2023-12-17 01:28] VITALS: BP 167/78; PULSE 84; RESP 18; O2SAT 100; BMI 26.5
[2023-12-17 01:41] LABS: Basophils # 0.1 10^3/uL (0.0-0.1); Basophils % 0.8 %; Eosinophils # 0.1 10^3/uL (0.0-0.8); Eosinophils % 1.3 %; Hematocrit 33.4 % (36-47); Lymphocytes # 0.9 10^3/uL (0.8-4.8); Lymphocytes % 10.3 %; Mean Corpuscular HGB Conc 31.1 g/dL (30-55); Mean Corpuscular Hemoglobin 29.6 pg (27-33); Mean Corpuscular Volume 95.2 fl (85-98); Mean Platelet Volume 10.3 fL (7.4-10.4); Monocytes # 1.1 10^3/uL (0.2-0.9); Monocytes % 13.2 %; Nucleated Red Blood Cells % 0 %; Platelet Count 270 10^3/cmm (157-399); Red Blood Count 3.51 10^6/uL (3.85-5.65); Red Cell Distribution Width 14.7 % (12.1-15.1); White Blood Count 8.51 10^3/uL (3.29-11.43)
--- NOTE | 2023-12-17 01:45 | W.ED.WEAKNES ---
HPI - Weakness General: Chief complaint: Weakness Stated complaint: AMS Time Seen by Provider: 12/17/23 01:21 Source: patient and EMS Mode of arrival: EMS History of Present Illness: 73-year-old female has a history of dementia is here from [facility]. States that she had been hypertensive there tonight and seem to be more tired and weak than typical. Patient here is awake and alert she able to tell me her name where she is from she is confused to time but does have dementia. She denies any pain anywhere Review of Systems General: Reports: ROS unobtainable due to mental status PFSH ED PFSH: Medical History Vaginal prolapse Aftercare following surgery of the genitourinary system Enrolled in chronic care management Cough Chronic pain syndrome Dyslipidemia History of TIA (transient ischemic attack) and stroke Hypertension CAD (coronary artery disease) LAD stent 2004 & 2008, last mibi stress test 02/12 was negative for ischemia but showed scarring. Generalized anxiety disorder Type 2 diabetes mellitus (~07/02/19) Surgical History History of colpocleisis 03/17/2021- colpocleisis Lefort procedure, performed by Dr. Adler at [facility] H/O heart artery stent History of appendectomy History of tubal ligation Family History Father CAD (coronary artery disease) Lung disease Sister CAD (coronary artery disease) Cancer Chronic kidney disease (CKD) Diabetes Breast cancer onset unknown Colon cancer age onset unknown Brother CAD (coronary artery disease) Cancer Diabetes Hypertension Hyperlipidemia Colon cancer age onset unknown Mother Stroke Thyroid disease Other Heart disease Denies family history of Ovarian cancer Dementia Suicide Uterine cancer Social History Smoking and tobacco/nicotine status: never used tobacco/nicotine Substance/Drug Use: never Physical Exam Const: COMMON NORMALS: no acute distress and healthy appearing HENMT: COMMON NORMALS: normocephalic and atraumatic HEAD & SCALP: normocephalic and atraumatic Eye: COMMON NORMALS: Equal, round and reactive pupils present and EOMs intact bilaterally PUPIL: Yes Equal, round and reactive pupils present Neck/C-Spine: COMMON NORMALS: full ROM and supple Chest: COMMONS NORMALS: normal inspection of the chest and normal palpation of entire chest wall Resp: COMMON NORMALS: normal respiratory effort, No retractions, No use of accessory muscles and clear to auscultation bilaterally AUSCULTATION: clear to auscultation bilaterally Cardio: COMMON NORMALS: regular rate, regular rhythm and No murmurs present (Cardio) RATE: regular rate RHYTHM: regular rhythm GI: COMMON NORMALS: Normal to inspection, nondistended, normoactive bowel sounds present, Soft to palpation, non-tender and no masses PALPATION: Yes Soft to palpation Extremity: COMMON NORMALS: normal to inspection and full ROM Neuro: COMMON NORMALS: moves all extremities and no focal motor deficits Psych: COMMON NORMALS: mental status grossly normal, Normal thought process present and cooperative THOUGHT PROCESS: Normal thought process present Skin: COMMON NORMALS: no rashes or lesions noted and no wounds GENERAL SKIN EXAM: no rashes or lesions noted Course Vital Signs: Vital signs: Vital Signs Pulse Rate 78 12/17/23 03:22 Respiratory Rate 14 12/17/23 03:22 Blood Pressure 119/53 12/17/23 03:22 Pulse Oximetry 97 12/17/23 03:22 Oxygen Delivery Me thod Room Air 12/17/23 02:17 MDM - Weakness Medical Decision Making Patient presents here from [facility] with hypotension also concern for generalized weakness patient is well-appearing here and she was my questions she states she is at her baseline imaging blood work here is all normal blood pressure here has been stable she stable for discharge back to [place] [facility] Medical Records I reviewed the patient's medical records. Lab Data I reviewed the patient's lab results. 12/17/23 01:37 12/17/23 01:37 Radiology Impressions Chest X-Ray 12/17/23 01:24 IMPRESSION: No acute cardiopulmonary disease. Head CT 12/17/23 01:24 IMPRESSION: No acute intracranial process. Laboratory Results WBC 8.51 10^3/uL (3.29-11.43) 12/17/23 01:37 RBC 3.51 10^6/uL (3.85-5.65) L 12/17/23 01:37 Hgb 10.40 g/dL (11.27-16.99) L 12/17/23 01:37 Hct 33.4 % (36-47) L 12/17/23 01:37 MCV 95.2 fl (85-98) 12/17/23 01:37 MCH 29.6 pg (27-33) 12/17/23 01:37 MCHC 31.1 g/dL (30-55) 12/17/23 01:37 RDW 14.7 % (12.1-15.1) 12/17/23 01:37 Plt Count 270 10^3/cmm (157-399) 12/17/23 01:37 MPV 10.3 fL (7.4-10.4) 12/17/23 01:37 Neut % (Auto) 74.0 % 12/17/23 01:37 Lymph % (Auto) 10.3 % 12/17/23 01:37 [place] % (Auto) 13.2 % 12/17/23 01:37 Eos % (Auto) 1.3 % 12/17/23 01:37 Baso % (Auto) 0.8 % 12/17/23 01:37 Neut # (Auto) 6.30 10^3/uL (1.8-7.7) 12/17/23 01:37 Lymph # (Auto) 0.9 10^3/uL (0.8-4.8) 12/17/23 01:37 [place] # (Auto) 1.1 10^3/uL (0.2-0.9) H 12/17/23 01:37 Eos # (Auto) 0.1 10^3/uL (0.0-0.8) 12/17/23 01:37 Baso # (Auto) 0.1 10^3/uL (0.0-0.1) 12/17/23 01:37 Nucleated RBC % (auto) 0 % 12/17/23 01:37 Nucleated RBCs # 0.0 /100WBC 12/17/23 01:37 Sodium 131 mmol/L (136-145) L 12/17/23 01:37 Potassium 4.4 mmol/L (3.5-5.1) 12/17/23 01:37 Chloride 98 mmol/L (98-107) 12/17/23 01:37 Carbon Dioxide 20 mmol/L (22-29) L 12/17/23 01:37 Anion Gap 17.4 (5-19) 12/17/23 01:37 BUN 13 mg/dL (8-23) 12/17/23 01:37 Creatinine 0.7 mg/dL (0.5-0.9) 12/17/23 01:37 GFR Calculation Not Reportable 12/17/23 01:37 Glucose 112 mg/dL (65-115) 12/17/23 01:37 POC Glucose 106 mg/dL (70-110) 12/17/23 02:16 Calculated Osmolality 273 mOsm/kg (285-295) L 12/17/23 01:37 Calcium 9.5 mg/dL (8.5-10.5) 12/17/23 01:37 Total Bilirubin 0.6 mg/dL (0.15-1.2) 12/17/23 01:37 AST 57 U/L (0-32) H 12/17/23 01:37 ALT 41 U/L (0-33) H 12/17/23 01:37 Alkaline Phosphatase 339 U/L (35-105) H 12/17/23 01:37 Troponin T Baseline 15 ng/L (0-10) H 12/17/23 01:37 Troponin T 120 Minute 17.24 ng/L (0-10) H 12/17/23 03:49 Delta Troponin T 2.24 ABS# (0-10) 12/17/23 03:49 Total Protein 6.9 g/dL (6.6-8.7) 12/17/23 01:37 Albumin 3.8 g/dL (3.5-5.2) 12/17/23 01:37 Globulin 3.1 g/dL (1.3-4.6) 12/17/23 01:37 Urine Color Yellow (Yellow) 12/17/23 02:43 Urine Appearance Clear (CLEAR) 12/17/23 02:43 Urine pH 7.0 (5-7) 12/17/23 02:43 Ur Specific [place] 1.015 (1.005-1.030) 12/17/23 02:43 Urine Protein Negative (Negative) 12/17/23 02:43 Urine Glucose (UA) Negative (Normal) 12/17/23 02:43 Urine Ketones Negative (Negative) 12/17/23 02:43 Urine Blood Negative (Negative) 12/17/23 02:43 Urine Nitrate Negative (Negative) 12/17/23 02:43 Urine Bilirubin Negative (Negative) 12/17/23 02:43 Urine Urobilinogen 1.0 mg/dL (Negative) 12/17/23 02:43 Ur Leukocyte Esterase Trace (Negative) A 12/17/23 02:43 Urine RBC 0-2 /hpf (0-2) 12/17/23 02:43 Urine WBC 0-5 /hpf (0-5) 12/17/23 02:43 Ur Squamous Epith Cells 0-5 /hpf (0-5) 12/17/23 02:43 Amorphous Sediment Not Reportable 12/17/23 02:43 Urine Bacteria None seen /hpf (NONE) 12/17/23 02:43 Hyaline Casts 0-4 /lpf H 12/17/23 02:43 All radiology interpretation(s) finalized by discharge Discharge Plan Discharge Patient Disposition: Home Clinical Impression: Hypertension, Episode of generalized weakness Condition: Stable Prescriptions: No Action (DME) left cuff and collar sling See Rx Instructions .Route .MEDSUPPLY Qty: 1 0RF Rx Instructions: As directed (DME) orthotic shoes custom See Rx Instructions .Route .MEDSUPPLY Qty: 1 0RF Rx Instructions: As directed (DME) diabetic shoes with 3 inserts See Rx Instructions .Route .MEDSUPPLY Qty: 1 0RF Rx Instructions: As directed to the shoe guys (DME) lancets [OneTouch Delica Lancets] 30 gauge misc See Rx Instructions .ROUTE .MEDSUPPLY Qty: 100 0RF Rx Instructions: test daily as needed (DME) pen needle, diabetic [Comfort EZ Pen [place]] 31 gauge x 3/16 needle See Rx Instructions .ROUTE .COMPLEX Qty: 100 5RF Dose Instruction: USE WITH lantus Rx Instructions: USE WITH lantus (DME) diabetic shoes See Rx Instructions .Route .MEDSUPPLY Qty: 1 0RF Rx Instructions: Please include 3 inserts potassium chloride 20 mEq tablet,ER particles/crystals 20 meq PO QAM Qty: 30 0RF rosuvastatin 5 mg tablet See Rx Instructions .ROUTE .COMPLEX Qty: 90 1RF Dose Instruction: TAKE 1 TABLET BY MOUTH DAILY Rx Instructions: TAKE 1 TABLET BY MOUTH BEDTIME clopidogrel 75 mg tablet See Rx Instructions .ROUTE .COMPLEX Qty: 30 0RF Dose Instruction: TAKE 1 TABLET BY MOUTH EVERY DAY. Must have an appointment FOR further refills Rx Instructions: TAKE 1 TABLET BY MOUTH EVERY DAY. Must have an appointment FOR further refills hydralazine 25 mg tablet 25 mg PO BEDTIME fluticasone propionate 220 mcg/actuation HFA aerosol inhaler 1 puff INHALATION BID aripiprazole 5 mg tablet 5 mg PO DAILY memantine 5 mg tablet 5 mg PO BID Novolog FlexPen U-100 Insulin 100 unit/mL (3 mL) insulin pen See Rx Instructions .ROUTE .COMPLEX Qty: 15 0RF Rx Instructions: ACHS Glucose: 141-180 - 2 units 181-220 - 3 221-260 - 4 261-300 - 5 301-350 - 6 351-400 - 7 >400 - 8 units Lasix 40 mg tablet 40 mg PO DAILY PRN (Reason: Edema) Qty: 30 0RF hydroxyzine pamoate 25 mg capsule 25 mg PO Q8H PRN (Reason: itching) Qty: 20 0RF gabapentin 100 mg capsule 100 mg PO BID Qty: 60 0RF cefdinir 300 mg capsule 300 mg PO BID Qty: 14 0RF nitroglycerin [Nitrostat] 0.4 mg Tablet, Sublingual 0.4 mg SUBLINGUAL Q5M PRN (Reason: Chest Pain) Rx Instructions: do not exceed 3 doses per episode naloxone [Narcan] 4 mg/actuation [place],Non-Aerosol 1 spray INTRANASAL Q2M PRN (Reason: Opioid Overdose) Rx Instructions: spray 1 dose into ONE nostril; alternate nostrils w each dose until help arrives acetaminophen [Tylenol] 325 mg Tablet 650 mg PO Q6H PRN (Reason: Pain) gabapentin 300 mg Capsule 600 mg PO TID Discharge Orders: Discharge ED (Routine); Ordered 12/17/23 Ordered By: Shahana Reece Discharge Diet: Advance as tolerated Discharge Activity: Resume usual activity Patient Instructions: Weakness (ED), Hypertension (ED) Coding Level of Care Code ED [employer] [facility] for [facility] Related Data Home Medications Medication Instructions Recorded Confirmed naloxone 4 mg/actuation nasal 1 spray intranasal Q2M PRN Opioid 12/19/21 11/30/23 spray (Narcan) Overdose nitroglycerin 0.4 mg sublingual 0.4 mg sublingual Q5M PRN Chest 12/19/21 11/30/23 tablet (Nitrostat) Pain acetaminophen 325 mg tablet 650 mg PO Q6H PRN Pain 12/20/21 11/30/23 (Tylenol) gabapentin 300 mg capsule 600 mg PO TID 12/20/21 11/30/23 aripiprazole 5 mg tablet 5 mg PO DAILY 08/03/23 11/30/23 fluticasone propionate 220 1 puff inhalation BID 08/03/23 11/30/23 mcg/actuation HFA aerosol inhaler hydralazine 25 mg tablet 25 mg PO BEDTIME 08/03/23 11/30/23 memantine 5 mg tablet 5 mg PO BID 08/03/23 11/30/23 Previous Rx's Medication Instructions Recorded lancets 30 gauge (OneTouch Delica #100 ea 12/20/19 Lancets) pen needle, diabetic 31 gauge x ##100 11/10/2106/09 (Comfort EZ Pen [place]) orthotic shoes #1 ea 01/04/22 diabetic shoes #1 ea 02/08/22 potassium chloride 20 mEq 20 meq PO QAM #30 tabs 05/20/22 tablet,extended release(part/cryst) rosuvastatin 5 mg tablet See Rx Instructions .Route 08/16/22 .COMPLEX #90 tabs clopidogrel 75 mg tablet See Rx Instructions .Route 04/25/23 .COMPLEX #30 tabs diabetic shoes with 3 inserts #1 ea 04/25/23 furosemide 40 mg tablet (Lasix) 40 mg PO DAILY PRN Edema #30 tabs 08/04/23 gabapentin 100 mg capsule 100 mg PO BID #60 caps 08/04/23 hydroxyzine pamoate 25 mg capsule 25 mg PO Q8H PRN itching #20 caps 08/04/23 insulin aspart U-100 100 unit/mL See Rx Instructions .Route 08/04/23 (3 mL) subcutaneous pen (Novolog .COMPLEX #15 mL FlexPen U-100 Insulin aspart) left cuff and collar sling #1 ea 10/11/23 cefdinir 300 mg capsule 300 mg PO BID #14 caps 11/19/23 Allergies Allergy/AdvReac Type Severity Reaction Status Date / Time simvastatin Allergy leg cramps Verified 11/30/23 09:54
--- NOTE | 2023-12-17 02:08 | ECG_ITS ---
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 Measurements Intervals [place] Rate: 83 P: 67 WV: 141 QRS: 65 QRSD: 99 T: 75 QT: 355 QTc: 417 Interpretive Statements SINUS RHYTHM POSSIBLE LEFT ATRIAL ENLARGEMENT [-0.1mV P-WAVE IN V1/V2] Compared to ECG 11/19/2023 16:37:33 Sinus arrhythmia no longer present Electronically Signed On 12-17-2023 19:27:35 CDT by Jeremy Darnell M.D. [email or web address]
[2023-12-17 02:13] LABS: Troponin(5th) Baseline 15 ng/L (0-10)
[2023-12-17 02:16] LABS: Alanine Aminotransferase 41 U/L (0-33); Albumin Level 3.8 g/dL (3.5-5.2); Alkaline Phosphatase 339 U/L (35-105); Anion Gap 17.4 (5-19); Aspartate Amino Transferase 57 U/L (0-32); Blood Urea Nitrogen 13 mg/dL (8-23); Calcium 9.5 mg/dL (8.5-10.5); Carbon Dioxide 20 mmol/L (22-29); Chloride 98 mmol/L (98-107); Creatinine Clr Calc Pharmacy 56.2625; Globulin 3.1 g/dL (1.3-4.6); Glucose 112 mg/dL (65-115); Osmolality Calculated 273 mOsm/kg (285-295); Potassium 4.4 mmol/L (3.5-5.1); Sodium 131 mmol/L (136-145); Total Bilirubin 0.6 mg/dL (0.15-1.2); Total Protein 6.9 g/dL (6.6-8.7)
[2023-12-17 02:17] VITALS: BP 148/68; PULSE 77; RESP 16; O2SAT 99
[2023-12-17 02:19] LABS: Glucose Point of Care 106 mg/dL (70-110)
[2023-12-17 03:12] LABS: Bilirubin Urine Negative (Negative); Blood Urine Negative (Negative); Glucose Urine UA Negative (Normal); Ketones Urine Negative (Negative); Leukocyte Esterase Urine Trace (Negative); Nitrate Urine Negative (Negative); Protein Urine Negative (Negative); Specific Gravity, Urine 1.015 (1.005-1.030); Urine Appearance Clear (CLEAR); Urine Color Yellow (Yellow)
[2023-12-17 03:17] LABS: Add Urine Microscopic? YES; Bacteria Urine None Seen /hpf; Hyaline Casts Urine 0-4 /lpf; RBC Urine 0-2 /hpf (0-2); Squamous Epithelial Cell Urine 0-5 /hpf (0-5); Universal Test for UA Present (0); WBC Urine 0-5 /hpf (0-5)
[2023-12-17 03:22] VITALS: BP 119/53; PULSE 78; RESP 14; O2SAT 97
[2023-12-17] MEDS: sodium chloride 0.9% 1,000 ML 999 ML IV (03:55)
[2023-12-17 04:19] LABS: Troponin 5 2HR 17.24 ng/L (0-10); Troponin 5 2HR Delta 2.24 ABS# (0-10)
[2023-12-17 05:15] VITALS: BP 142/55; PULSE 81; RESP 14; O2SAT 99
== END 2023-12-17 05:00 | disposition home or self-care (01) ==
PROVIDERS: Emergency Provider Emergency Medicine
DX: R53.1 Weakness (principal); I10 Essential (primary) hypertension; Z79.02 Long term (current) use of antithrombotics/antiplatelets; Z79.4 Long term (current) use of insulin; E78.5 Hyperlipidemia, unspecified; Z86.73 Personal history of transient ischemic attack (TIA), and cerebral infarction without residual deficits; I25.10 Atherosclerotic heart disease of native coronary artery without angina pectoris; E11.9 Type 2 diabetes mellitus without complications
CPT/HCPCS: 36415; 36416; 70450; 71045; 80053; 81001; 82962; 84484; 85025; 93005; 99285; J7030

== ENCOUNTER → 2024-02-21 10:01 | Outpatient (BNVA) | payer MEDICARE, MEDICAID, SELFPAY | PROVIDERS: Visit Provider Podiatrist Foot & Ankle Surgery | DX: B35.1 Tinea unguium (principal); I73.9 Peripheral vascular disease, unspecified; E11.42 Type 2 diabetes mellitus with diabetic polyneuropathy; G62.9 Polyneuropathy, unspecified | CPT/HCPCS: 11721 ==

== ENCOUNTER → 2024-04-25 09:46 | Outpatient (BNVA) | payer MEDICARE, MEDICAID, SELFPAY | PROVIDERS: Visit Provider Podiatrist Foot & Ankle Surgery | DX: B35.1 Tinea unguium (principal); L84 Corns and callosities; I73.9 Peripheral vascular disease, unspecified; G62.9 Polyneuropathy, unspecified; E11.42 Type 2 diabetes mellitus with diabetic polyneuropathy; R60.0 Localized edema; Z79.4 Long term (current) use of insulin | CPT/HCPCS: 11056; 11721; 99213 ==